=== PATIENT | female | born 1935 | race Caucasian/White ===

== ENCOUNTER 2017-09-19 09:55 | Emergency (ER) | payer MEDICARE, OTHER ==
[2017-09-19] MEDS ORDERED: Sodium Chloride 0.9% 5 ML Syringe FLUSH PRN (10:05)
[2017-09-19] MEDS ORDERED: Ondansetron 4 MG/2 ML SDV IVPUSH ONE (10:11)
[2017-09-19] MEDS ORDERED: Sodium Chloride 0.9% 1,000 ML IV ONE (10:31)
[2017-09-19 10:33] LABS: CHLORIDE,CL 101 mmol/L (98-115); SODIUM,NA 138 mmol/L (136-145)
--- NOTE | 2017-09-19 10:55 | EDM.PDOC ---
ED HPI GENERAL MEDICAL PROBLEM - General Chief Complaint: General Stated Complaint: Dizziness Time Seen by Provider: 09/19/17 10:03 Source of Information: Reports: Patient History Limitations: Reports: No Limitations - History of Present Illness INITIAL COMMENTS - FREE TEXT/NARRATIVE: Patient is an 81-year-old female who presents to the emergency department this morning with a complaint of headache and dizziness that began at 5 a.m. this morning. Patient states that she has felt nauseous but is unable to vomit. Patient states that she has been working out in the yard the last 2 days and has felt dehydrated. States that she did not consume enough liquids also. Patient denies fall, head injury, vision changes, fever, chest pain, shortness of breath, abdominal pain, bowel changes, or blood in stool Onset: Today Onset Date: 09/19/17 Onset Time: 05:00 Duration: Constant Location: Reports: Head Quality: Reports: Ache Severity: Mild Improves with: Reports: None Worsens with: Reports: Movement Context: Reports: Other (Denies fall or head injury) Associated Symptoms: Reports: No Other Symptoms - Related Data Allergies Allergy/AdvReac Type Severity Reaction Status Date / Time povidone-iodine Allergy Unknown Cannot Verified 10/26/15 18:33 [From Betadine] Remember benzalkonium chloride Allergy Cannot Verified 10/26/15 18:33 [From Zephiran] Remember diazepam [From Valium] Allergy Hallucinati Verified 10/26/15 18:33 ons soap [From Betadine] Allergy Rash Verified 10/26/15 18:33 Sulfa (Sulfonamide Allergy Hives Verified 10/26/15 18:33 Antibiotics) sulfamethoxazole Allergy Hives Verified 10/26/15 18:33 [From Bactrim] trimethoprim [From Bactrim] Allergy Hives Verified 10/26/15 18:33 tape Allergy Rash Uncoded 10/26/15 18:33 Home Meds: Home Meds LORazepam [Ativan] 1 mg PO BEDTIME PRN 03/15/13 [History] PARoxetine HCl [Paroxetine HCl] 20 mg PO DAILY 03/15/13 [History] Metoprolol Succinate [Toprol XL] 50 mg PO DAILY 03/18/13 [History] traMADol [Ultram] 50 mg PO TID PRN 03/18/13 [History] carBAMazepine [Carbamazepine ER] 400 mg PO BIDMEALS 07/06/15 [History] Iron Polysaccharides Complex [Ferrex 150] 150 mg PO BIDMEALS 09/06/15 [History] Meclizine HCl 12.5 mg PO BID PRN 09/06/15 [History] Omeprazole 40 mg PO DAILY PRN 09/07/15 [History] Atropine/Diphenoxylate [Lomotil 0.025-2.5 MG] 1 tab PO QID PRN #12 tablet [Rx] Past Medical History HEENT History: Reports: Cataract, Impaired Vision Cardiovascular History: Reports: High Cholesterol, Hypertension Respiratory History: Reports: Pneumothorax Other Respiratory History: collapsed lung in 1978 and had surgery Gastrointestinal History: Reports: Hemorrhoids, Other (See Below) Other Gastrointestinal History: heartburn Genitourinary History: Reports: Renal Calculus, Other (See Below) Other Genitourinary History: right renal cancer kidney removed Other OB/BYN History: G 5. P-5. one child was born and within a few hours with a lung problem. hysterectomy performed because the Dr rivasought that there was a problem with the ovaries. Musculoskeletal History: Reports: Arthritis Neurological History: Reports: Other (See Below) Other Neuro History: trigeminal neuralgia Psychiatric History: Reports: Anxiety, Depression Hematologic History: Reports: Anemia, Blood Transfusion(s), Iron Deficiency Oncologic (Cancer) History: Reports: Renal Dermatologic History: Reports: Other (See Below) Other Dermatologic History: dry - Infectious Disease History Infectious Disease History: Reports: Chicken Pox, Measles, Mumps, Shingles - Past Surgical History HEENT Surgical History: Reports: Cataract Surgery Cardiovascular Surgical History: Reports: Other (See Below) GI Surgical History: Reports: Appendectomy, Colonoscopy, Hernia, Inguinal, Other (See Below) Musculoskeletal Surgical History: Reports: Knee Replacement Social & Family History - Family History Cardiac: Reports: Hypertension : Reports: None ED ROS GENERAL - Review of Systems Review Of Systems: ROS reveals no pertinent complaints other than HPI. Constitutional: Reports: No Symptoms HEENT: Reports: Vertigo Respiratory: Reports: No Symptoms Cardiovascular: Reports: No Symptoms Endocrine: Reports: No Symptoms GI/Abdominal: Reports: Nausea : Reports: No Symptoms Musculoskeletal: Reports: No Symptoms Skin: Reports: No Symptoms Neurological: Reports: Dizziness, Headache Psychiatric: Reports: No Symptoms Hematologic/Lymphatic: Reports: No Symptoms Immunologic: Reports: No Symptoms ED EXAM, GENERAL - Physical Exam Exam: See Below Exam Limited By: No Limitations General Appearance: Alert, WD/WN, No Apparent Distress Eye Exam: Bilateral Eye: Normal Inspection, Nystagmus (No nystagmus) Ears: Normal External Exam, Normal Canal, Normal TMs Nose: Normal Inspection, Normal Mucosa, No Blood Throat/Mouth: Normal Inspection, Normal Oropharynx, No Airway Compromise Head: Atraumatic, Normocephalic Neck: Normal Inspection, Supple, Non-Tender Respiratory/Chest: No Respiratory Distress, Lungs Clear, Normal Breath Sounds, No Accessory Muscle Use, Chest Non-Tender Cardiovascular: Normal Peripheral Pulses, Regular Rate, Rhythm, No Murmur GI/Abdominal: Normal Bowel Sounds, Soft, Non-Tender, No Organomegaly, No Mass Back Exam: Normal Inspection. No: CVA Tenderness (L), CVA Tenderness (R) Extremities: Normal Inspection, No Pedal Edema Neurological: Alert, Oriented, CN II-XII Intact, Normal Cognition, No Motor/ Sensory Deficits Psychiatric: Normal Affect, Normal Mood Skin Exam: Warm, Dry, Intact, Normal Color, No Rash Lymphatic: No Adenopathy EKG INTERPRETATION EKG Date: 09/19/17 Time: 10:40 Rhythm: NSR Rate (Beats/Min): 63 [place]: Normal P-Wave: Present QRS: Normal ST-T: Other (Nonspecific T-wave) QT: Normal Comparison: No Change Course - Orders/Labs/Meds Orders: Active Orders 24 hr Category Date Time Status EKG Documentation Completion [RC] ASDIRECTED Care 09/19/17 10:25 Ordered Peripheral IV Care [RC] . DIRECTED Care 09/19/17 10:05 Ordered Head wo Cont [CT] Stat Exams 09/19/17 10:05 Ordered INR,PT,PROTHROMBIN TIME [COAG] Stat Lab 09/19/17 10:04 Ordered PTT,PARTIAL THROMBOPLSTIN TIME [COAG] Stat Lab 09/19/17 10:04 Ordered UA W/MICROSCOPIC [URIN] Stat Lab 09/19/17 10:04 Ordered Sodium Chloride 0.9% @ 999 MLS/HR (1000ml) Med 09/19/17 10:31 Ordered Sodium Chloride 0.9% [Normal Saline] 1,000 ml IV .BOLUS Sodium Chloride 0.9% [Syrex Flush] Med 09/19/17 10:05 Ordered 5 ml FLUSH Q8HR PRN Peripheral IV Insertion Adult [OM.PC] Routine Oth 09/19/17 10:05 Ordered EKG 12 Lead [EK] Routine Ther 09/19/17 10:25 Ordered Medication Orders Sodium Chloride (Normal Saline) 1,000 mls @ 999 mls/hr IV .BOLUS ONE Stop: 09/19/17 11:31 Sodium Chloride (Syrex Flush) 5 ml FLUSH Q8HR PRN PRN Reason: Keep Vein Open Labs: Laboratory Tests 09/19/17 09/19/17 Range/Units 10:00 10:00 WBC 7.5 (5.0-10.0) 10^3/uL RBC 4.83 (3.80-5.50) 10^6/uL Hgb 14.2 D (12.0-16.0) g/dL Hct 43.7 (37.0-47.0) % MCV 90.4 D (82.0-92.0) fL MCH 29.5 (27.0-31.0) pg MCHC 32.6 (32.0-36.0) g/dL RDW 13.7 (11.5-14.5) % Plt Count 344 H (150-300) 10^3/uL MPV 6.8 L (7.4-10.4) fL Neut % (Auto) 60.9 (50.0-70.0) % Lymph % (Auto) 27.6 (20.0-40.0) % [place] % (Auto) 7.6 (2.0-8.0) % Eos % (Auto) 3.0 (1.0-3.0) % Baso % (Auto) 0.9 (0.0-1.0) % Neut # (Auto) 4.5 (2.5-7.0) 10^3/uL Lymph # (Auto) 2.1 (1.0-4.0) 10^3/uL [place] # (Auto) 0.6 (0.1-0.8) 10^3/uL Eos # (Auto) 0.2 (0.1-0.3) 10^3/uL Baso # (Auto) 0.1 (0.0-0.1) 10^3/uL Sodium 138 (136-145) mmol/L Potassium 4.0 (3.3-5.3) mmol/L Chloride 101 (98-115) mmol/L Carbon Dioxide 26.8 (21.0-32.0) mmol/L BUN 22 (6-25) mg/dL Creatinine 1.12 (0.51-1.17) mg/dL Est Cr Clr Drug Dosing TNP Estimated GFR (MDRD) 47 mL/min Glucose 124 H (70-110) mg/dL Calcium 9.5 (8.7-10.3) mg/dL Magnesium 2.0 (1.8-2.4) mg/dL Total Bilirubin 0.3 (0.2-1.0) mg/dL AST 22 (15-37) U/L ALT 19 (12-78) U/L Alkaline Phosphatase 130 H (46-116) IU/L Troponin I < 0.04 (0.00-0.070) ng/mL Total Protein 7.5 (6.4-8.2) g/dL Albumin 3.60 (3.00-4.80) g/dL Meds: Medications Generic Name Dose Route Start Last Admin Trade Name Freq PRN Reason Stop Dose Admin Sodium Chloride 1,000 mls @ 999 mls/hr 09/19/17 10:31 Normal Saline IV 09/19/17 11:31 .BOLUS ONE Sodium Chloride 5 ml 09/19/17 10:05 Syrex Flush FLUSH Q8HR PRN Keep Vein Open Discontinued Medications Generic Name Dose Route Start Last Admin Trade Name Freq PRN Reason Stop Dose Admin Ondansetron HCl 4 mg 09/19/17 10:11 Zofran IVPUSH 09/19/17 10:12 ONETIME ONE - Re-Assessments/Exams Free Text/Narrative Re-Assessment/Exam: 09/19/17 13:13 Patient afebrile, nontoxic appearing, vital signs stable, dizziness, mostly resolved, patient has made multiple ambulation trips to bathroom without difficulty. Patient will follow-up at [facility] tomorrow or return to emergency department sooner if symptoms continue or worsen. Departure - Departure Time of Disposition: 13:14 Disposition: Home, Self-Care 01 Condition: Good Clinical Impression: Dehydration Benign positional vertigo Qualifiers: Laterality: unspecified laterality Qualified Code(s): H81.10 - Benign paroxysmal vertigo, unspecified ear - Discharge Information Instructions: Dehydration, Elderly, [id number], Benign Positional Vertigo Referrals: Vita Hobson, [facility] [Primary Care Provider] - Forms: ED Department Discharge Additional Instructions: Avoid outdoor activity, remain indoors with air conditioning, and drink plenty of liquids. Follow-up at [facility] tomorrow. Return to emergency department sooner if symptoms continue or worsen. - My Orders Last 24 Hours: My Active Orders 09/19/17 10:04 INR,PT,PROTHROMBIN TIME [COAG] Stat PTT,PARTIAL THROMBOPLSTIN TIME [COAG] Stat UA W/MICROSCOPIC [URIN] Stat 09/19/17 10:05 Peripheral IV Care [RC] . DIRECTED Head wo Cont [CT] Stat Sodium Chloride 0.9% [Syrex Flush] 5 ml FLUSH Q8HR PRN Peripheral IV Insertion Adult [OM.PC] Routine 09/19/17 10:25 EKG Documentation Completion [RC] ASDIRECTED EKG 12 Lead [EK] Routine 09/19/17 10:31 Sodium Chloride 0.9% @ 999 MLS/HR (1000ml) Sodium Chloride 0.9% [Normal Saline] 1,000 ml IV .BOLUS - Assessment/Plan Last 24 Hours: My Active Orders 09/19/17 10:04 INR,PT,PROTHROMBIN TIME [COAG] Stat PTT,PARTIAL THROMBOPLSTIN TIME [COAG] Stat UA W/MICROSCOPIC [URIN] Stat 09/19/17 10:05 Peripheral IV Care [RC] . DIRECTED Head wo Cont [CT] Stat Sodium Chloride 0.9% [Syrex Flush] 5 ml FLUSH Q8HR PRN Peripheral IV Insertion Adult [OM.PC] Routine 09/19/17 10:25 EKG Documentation Completion [RC] ASDIRECTED EKG 12 Lead [EK] Routine 09/19/17 10:31 Sodium Chloride 0.9% @ 999 MLS/HR (1000ml) Sodium Chloride 0.9% [Normal Saline] 1,000 ml IV .BOLUS Assessment:: Dizziness, headache Plan: Follow-up at [facility] tomorrow
[2017-09-19] MEDS ORDERED: diphenhydrAMINE 50 MG/ML SDV IVPUSH ONE (11:35)
[2017-09-19] MEDS ORDERED: Sodium Chloride 0.9% 500 ML IV SCH (12:00)
[2017-09-19 16:02] VITALS: BP 153/79
[2017-09-19] MEDS ORDERED: Sodium Chloride 0.9% 500 ML IV ONE (17:52)
== END 2017-09-19 13:50 | disposition home or self-care (01) ==
LOC: KA.ED 09:55
DX: H81.10 Benign paroxysmal vertigo, unspecified ear (principal); E86.0 Dehydration; E78.00 Pure hypercholesterolemia, unspecified; I10 Essential (primary) hypertension; F41.9 Anxiety disorder, unspecified; F32.9 Major depressive disorder, single episode, unspecified; Z87.442 Personal history of urinary calculi; Z88.2 Allergy status to sulfonamides; Z88.8 Allergy status to other drugs, medicaments and biological substances; Z79.899 Other long term (current) drug therapy
CPT/HCPCS: 36415; 70450; 80053; 81001; 83735; 84484; 85025; 85610; 85730; 96361; 96374; 96375; 99283; 99284; J1200; J2405; J7030; J7040

== ENCOUNTER 2018-10-24 19:04 | Emergency (ER) | payer MEDICARE, OTHER ==
[2018-10-24] MEDS ORDERED: Acetaminophen/HYDROcodone 325-5 MG Tab PO ONE ×2 (19:56→21:55)
[2018-10-24] MEDS ORDERED: Metoprolol Tartrate 50 MG Tab PO ONE (20:19)
--- NOTE | 2018-10-24 20:28 | EDM.PDOC ---
ED HPI GENERAL MEDICAL PROBLEM - General Chief Complaint: Abdominal Pain Stated Complaint: RIGHT UPPER ABDOMINAL PAIN Time Seen by Provider: 10/24/18 19:43 Source of Information: Reports: Patient History Limitations: Reports: No Limitations - History of Present Illness INITIAL COMMENTS - FREE TEXT/NARRATIVE: Patient presents with pain in right anterior lower ribcage that has been present for 1.5 years. She gets trigger point injections from Dr. Schmidt every 6 weeks that has been working very well to control it but this time it only lasted 5 weeks and he is out of town. The pain returned this afternoon. Her blood pressure is also high today in the ER and she says it is always high but less than now. She tried a Tramadol at home but helped very little. She can't take NSAIDS. Right Upper Abdominal Pain Score (Numeric/FACES): 6 - Related Data Allergies Allergy/AdvReac Type Severity Reaction Status Date / Time povidone-iodine Allergy Unknown Cannot Verified 10/24/18 19:06 [From Betadine] Remember benzalkonium chloride Allergy Cannot Verified 10/24/18 19:06 [From Zephiran] Remember diazepam [From Valium] Allergy Hallucinati Verified 10/24/18 19:06 ons gabapentin [From Neurontin] Allergy Other Verified 10/24/18 19:06 Iodinated Contrast- Oral and Allergy Rash Verified 10/24/18 19:06 IV Dye ketorolac [From Toradol] Allergy Other Verified 10/24/18 19:06 morphine Allergy Nausea Verified 10/24/18 19:06 pineapple Allergy Headache Verified 10/24/18 19:06 soap [From Betadine] Allergy Rash Verified 10/24/18 19:06 soap Allergy Rash Verified 10/24/18 19:06 Sulfa (Sulfonamide Allergy Hives Verified 10/24/18 19:06 Antibiotics) sulfamethoxazole Allergy Hives Verified 10/24/18 19:06 [From Bactrim] trimethoprim [From Bactrim] Allergy Hives Verified 10/24/18 19:06 seasonal allergies Allergy Other Uncoded 10/24/18 19:06 tape Allergy Rash Uncoded 10/24/18 19:06 Home Meds: Home Meds LORazepam [Ativan] 0.5 mg PO BEDTIME PRN 03/15/13 [History] Metoprolol Succinate [Toprol XL] 50 mg PO DAILY 03/18/13 [History] traMADol [Ultram] 50 mg PO TID PRN 03/18/13 [History] Aspirin/Acetaminophen/Caffeine [Extra Pain Relief Caplet] 0.5 tab PO Q4H PRN 10/01 [History] Fluticasone Propionate [Flonase] 1 spray NASBOTH BID 09/19/17 [History] Isosorbide Mononitrate [Isosorbide Mononitrate ER] 45 mg PO DAILY 09/19/17 [ History] Mirtazapine [Remeron] 15 mg PO BEDTIME 09/19/17 [History] Nitroglycerin [Nitrostat] 0.4 mg SL ASDIRECTED 09/19/17 [History] Rosuvastatin Calcium 20 mg PO DAILY 09/19/17 [History] amLODIPine Besylate [Amlodipine Besylate] 5 mg PO DAILY 09/19/17 [History] carBAMazepine [Carbamazepine] 400 mg PO BEDTIME 09/19/17 [History] Past Medical History HEENT History: Reports: Cataract, Impaired Vision Cardiovascular History: Reports: High Cholesterol, Hypertension Respiratory History: Reports: Pneumothorax Other Respiratory History: collapsed lung in 1978 and had surgery Gastrointestinal History: Reports: Hemorrhoids, Other (See Below) Other Gastrointestinal History: heartburn Genitourinary History: Reports: Renal Calculus, Other (See Below) Other Genitourinary History: right renal cancer kidney removed Other BOAT HAND History: G 5. P-5. one child was born and within a few hours with a lung problem. hysterectomy performed because the Dr rivasought that there was a problem with the ovaries. Musculoskeletal History: Reports: Arthritis Neurological History: Reports: Other (See Below) Other Neuro History: trigeminal neuralgia Psychiatric History: Reports: Anxiety, Depression Hematologic History: Reports: Anemia, Blood Transfusion(s), Iron Deficiency Oncologic (Cancer) History: Reports: Renal Dermatologic History: Reports: Other (See Below) Other Dermatologic History: dry - Infectious Disease History Infectious Disease History: Reports: Chicken Pox, Measles, Mumps, Shingles - Past Surgical History HEENT Surgical History: Reports: Cataract Surgery Cardiovascular Surgical History: Reports: Other (See Below) GI Surgical History: Reports: Appendectomy, Colonoscopy, Hernia, Inguinal, Other (See Below) Musculoskeletal Surgical History: Reports: Knee Replacement Social & Family History - Family History Cardiac: Reports: Hypertension : Reports: None - Caffeine Use Caffeine Use: Reports: Coffee ED ROS GENERAL - Review of Systems Review Of Systems: See Below Constitutional: Denies: Fever, Chills, Malaise, Weakness HEENT: Reports: No Symptoms Respiratory: Denies: Shortness of Breath, Cough Cardiovascular: Denies: Chest Pain, Edema, Lightheadedness, Syncope Endocrine: Reports: No Symptoms GI/Abdominal: Denies: Abdominal Pain, Constipation, Diarrhea, Nausea, Vomiting : Denies: Dysuria, Flank Pain Musculoskeletal: Reports: No Symptoms Skin: Reports: No Symptoms Neurological: Reports: No Symptoms Psychiatric: Reports: No Symptoms ED EXAM, GI/ABD - Physical Exam Exam: See Below Exam Limited By: No Limitations General Appearance: Alert, WD/WN, No Apparent Distress Eyes: Bilateral: Normal Appearance, EOMI Ears: Normal External Exam, Hearing Grossly Normal Nose: Normal Inspection, No Blood Throat/Mouth: Normal Inspection, Normal Lips, Normal Voice, No Airway Compromise Head: Atraumatic, Normocephalic Neck: Normal Inspection, Full Range of Motion Respiratory/Chest: No Respiratory Distress, Lungs Clear, Normal Breath Sounds, No Accessory Muscle Use, Other (Palpation of right isreal-medial inferior ribs is very tender.) Cardiovascular: Regular Rate, Rhythm, No Murmur GI/Abdominal Exam: Normal Bowel Sounds, Soft, Non-Tender, No Organomegaly, No Distention Back Exam: Normal Inspection, Full Range of Motion. No: CVA Tenderness (L), CVA Tenderness (R) Extremities: Normal Inspection, Normal Range of Motion Neurological: Alert, Oriented, Normal Cognition, No Motor/Sensory Deficits Psychiatric: Normal Affect, Normal Mood Skin Exam: Warm, Dry, Intact, Normal Color, No Rash Course - Vital Signs Last Recorded V/S: Last Vital Signs Temp 98.1 F 10/24/18 19:07 Pulse 76 10/24/18 20:20 Resp 16 10/24/18 19:07 BP 230/109 H 10/24/18 20:20 Pulse Ox 91 L 10/24/18 19:07 - Orders/Labs/Meds Meds: Medications Discontinued Medications Generic Name Dose Route Start Last Admin Trade Name Freq PRN Reason Stop Dose Admin Hydrocodone Bitart/Acetaminophen 1 tab 10/24/18 19:56 10/24/18 20:19 [place] 325-5 Mg PO 10/24/18 19:57 1 tab ONETIME ONE Administration Metoprolol Tartrate 50 mg 10/24/18 20:19 Lopressor PO 10/24/18 20:20 ONETIME ONE - Re-Assessments/Exams Free Text/Narrative Re-Assessment/Exam: 10/24/18 20:29 Will give hydrocodone and Metoprolol to try to get pain and BP under control. Patient is stable. 10/24/18 21:07 Patient is feeling fine now and ready to go home. The last BP check was still high so will give a little more time for the metoprolol and recheck. 10/24/18 21:43 Pressure dropped a little to 215/116 and patient says she is going home. Her blood pressure will improve there she says. Discussed findings and plan. Patient stable at discharge. Departure - Departure Time of Disposition: 21:42 Disposition: Home, Self-Care 01 Condition: Good Clinical Impression: Rib pain on right side, Hypertension - Discharge Information Additional Instructions: 1. Take your blood pressure medications as directed. 2. Follow up tomorrow in clinic for recheck of your blood pressure.
[2018-10-24 23:42] VITALS: PULSE 73
[2018-10-24 23:43] VITALS: BP 215/116
== END 2018-10-24 22:00 | disposition home or self-care (01) ==
LOC: KA.ED 19:04
DX: R07.81 Pleurodynia (principal); I10 Essential (primary) hypertension; E78.00 Pure hypercholesterolemia, unspecified; F41.9 Anxiety disorder, unspecified; F32.9 Major depressive disorder, single episode, unspecified; Z88.8 Allergy status to other drugs, medicaments and biological substances; Z91.041 Radiographic dye allergy status; Z88.5 Allergy status to narcotic agent; Z79.899 Other long term (current) drug therapy; Z79.82 Long term (current) use of aspirin; Z88.2 Allergy status to sulfonamides
CPT/HCPCS: 99283; A9270; 99284

== ENCOUNTER 2019-02-19 15:32 | Emergency (ER) | payer MEDICARE, OTHER ==
[2019-02-19] MEDS ORDERED: HYDROmorphone 1 MG/ML Syringe IVPUSH ONE (15:53)
[2019-02-19] MEDS ORDERED: Labetalol 100 MG/20 ML MDV IVPUSH ONE (15:54)
[2019-02-19] MEDS ORDERED: Ondansetron 4 MG/2 ML SDV IVPUSH ONE (16:19)
--- NOTE | 2019-02-19 16:19 | EDM.PDOC ---
ED HPI GENERAL MEDICAL PROBLEM - General Stated Complaint: Rib pain Time Seen by Provider: 02/19/19 15:39 Source of Information: Reports: Patient History Limitations: Reports: No Limitations - History of Present Illness INITIAL COMMENTS - FREE TEXT/NARRATIVE: Patient presents with pain in the medial lower left chest wall that started about noon today (4 hours ago). She has also had a bad frontal headache since last evening. She gets headaches fairly often but usually don't last this long. She says it really hurts when she presses on the left lower ribs. She also has significant cardiac history including an IN but she says that felt like heartburn and today this feels like "pain, it hurts". She denies any injuries or trauma. She says her blood pressure is always high and she doesn't know what range it usually runs in but she always takes her medications like she is supposed to. She took a nitro at home to see if it would help but it didn't. She has chronic chest wall pain and sees Dr. Schmidt for trigger point injections for this. Left Chest Pain Score (Numeric/FACES): 7 Headache Pain Score (Numeric/FACES): 9 - Related Data Allergies Allergy/AdvReac Type Severity Reaction Status Date / Time povidone-iodine Allergy Unknown Cannot Verified 02/19/19 15:38 [From Betadine] Remember benzalkonium chloride Allergy Cannot Verified 02/19/19 15:38 [From Zephiran] Remember diazepam [From Valium] Allergy Hallucinati Verified 02/19/19 15:38 ons gabapentin [From Neurontin] Allergy Other Verified 02/19/19 15:38 Iodinated Contrast Media Allergy Rash Verified 02/19/19 15:38 ketorolac [From Toradol] Allergy Other Verified 02/19/19 15:38 morphine Allergy Nausea Verified 02/19/19 15:38 pineapple Allergy Headache Verified 02/19/19 15:38 soap [From Betadine] Allergy Rash Verified 02/19/19 15:38 soap Allergy Rash Verified 02/19/19 15:38 Sulfa (Sulfonamide Allergy Hives Verified 02/19/19 15:38 Antibiotics) sulfamethoxazole Allergy Hives Verified 02/19/19 15:38 [From Bactrim] trimethoprim [From Bactrim] Allergy Hives Verified 11/06/19 15:38 seasonal allergies Allergy Other Uncoded 02/19/19 15:38 tape Allergy Rash Uncoded 02/19/19 15:38 Home Meds: Home Meds LORazepam [Ativan] 0.5 mg PO BEDTIME PRN 03/15/13 [History] Metoprolol Succinate [Toprol XL] 50 mg PO DAILY 03/18/13 [History] traMADol [Ultram] 50 mg PO TID PRN 03/18/13 [History] Aspirin/Acetaminophen/Caffeine [Extra Pain Relief Caplet] 0.5 tab PO Q4H PRN 10/01 [History] Isosorbide Mononitrate [Isosorbide Mononitrate ER] 45 mg PO DAILY 09/19/17 [ History] Nitroglycerin [Nitrostat] 0.4 mg SL ASDIRECTED 09/19/17 [History] Rosuvastatin Calcium 20 mg PO BEDTIME 09/19/17 [History] amLODIPine Besylate [Amlodipine Besylate] 5 mg PO DAILY 09/19/17 [History] carBAMazepine [Carbamazepine] 200 mg PO QID 09/19/17 [History] Acetaminophen/Caffeine [Excedrin Tension Headache Cplt] 0.5 tab PO Q4HR [History] Past Medical History HEENT History: Reports: Cataract, Impaired Vision Cardiovascular History: Reports: High Cholesterol, Hypertension Respiratory History: Reports: Pneumothorax Other Respiratory History: collapsed lung in 1978 and had surgery Gastrointestinal History: Reports: Hemorrhoids, Other (See Below) Other Gastrointestinal History: heartburn Genitourinary History: Reports: Renal Calculus, Other (See Below) Other Genitourinary History: right renal cancer kidney removed 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 one child was born and within a few hours with a lung problem. hysterectomy performed because the Dr xavier that there was a problem with the ovaries. Musculoskeletal History: Reports: Arthritis Neurological History: Reports: Other (See Below) Other Neuro History: trigeminal neuralgia Psychiatric History: Reports: Anxiety, Depression Hematologic History: Reports: Anemia, Blood Transfusion(s), Iron Deficiency Oncologic (Cancer) History: Reports: Renal Dermatologic History: Reports: Other (See Below) Other Dermatologic History: dry - Infectious Disease History Infectious Disease History: Reports: Chicken Pox, Measles, Mumps, Shingles - Past Surgical History HEENT Surgical History: Reports: Cataract Surgery Cardiovascular Surgical History: Reports: Other (See Below) GI Surgical History: Reports: Appendectomy, Colonoscopy, Hernia, Inguinal, Other (See Below) Musculoskeletal Surgical History: Reports: Knee Replacement Social & Family History - Family History Family Medical History: Noncontributory Cardiac: Reports: Hypertension : Reports: None - Caffeine Use Caffeine Use: Reports: Coffee ED ROS GENERAL - Review of Systems Review Of Systems: See Below Constitutional: Denies: Fever, Chills, Malaise, Weakness HEENT: Denies: Ear Pain, Throat Pain, Vision Change Respiratory: Denies: Shortness of Breath, Cough Cardiovascular: Reports: Chest Pain, Blood Pressure Problem. Denies: Lightheadedness, Syncope Endocrine: Reports: No Symptoms GI/Abdominal: Reports: Nausea. Denies: Abdominal Pain, Diarrhea, Vomiting : Denies: Dysuria, Flank Pain Musculoskeletal: Reports: No Symptoms Skin: Denies: Cyanosis, Jaundice, Mottled, Pallor, Diaphoresis Neurological: Reports: Headache. Denies: Confusion, Dizziness, Seizure, Syncope , Trouble Speaking, Difficulty Walking Psychiatric: Reports: Anxiety. Denies: Agitation, Confusion ED EXAM, GENERAL - Physical Exam Exam: See Below Exam Limited By: No Limitations General Appearance: Alert, WD/WN, No Apparent Distress Eye Exam: Bilateral Eye: EOMI, Normal Inspection, PERRL Ears: Normal External Exam, Hearing Grossly Normal Nose: Normal Inspection, No Blood Throat/Mouth: Normal Inspection, Normal Lips, Normal Voice, No Airway Compromise Head: Atraumatic, Normocephalic Neck: Normal Inspection, Supple, Full Range of Motion Respiratory/Chest: No Respiratory Distress, Lungs Clear, Normal Breath Sounds, No Accessory Muscle Use, Other (Palpation of left anteriomedial bottom two ribs are very tender to touch. The inferior sternum closest to this area is somewhat tender but not further up. ) Cardiovascular: Normal Peripheral Pulses, Regular Rate, Rhythm, No Edema, No Gallop, No Murmur Peripheral Pulses: 2+: Carotid (L), Carotid (R), Radial (L), Radial (R), Posterior Tibial (L), Posterior Tibial (R) GI/Abdominal: Normal Bowel Sounds, Soft, Non-Tender, No Organomegaly, No Distention, No Abnormal Bruit Back Exam: Normal Inspection, Full Range of Motion. No: CVA Tenderness (L), CVA Tenderness (R) Extremities: Normal Inspection, Normal Range of Motion, Non-Tender Neurological: Alert, Oriented, Normal Cognition, No Motor/Sensory Deficits Psychiatric: Normal Affect, Anxious Skin Exam: Warm, Dry, Intact, Normal Color, No Rash Course - Vital Signs Last Recorded V/S: Last Vital Signs Temp 97.8 F 02/19/19 17:10 Pulse 68 02/19/19 17:10 Resp 12 02/19/19 17:10 BP 152/76 H 02/19/19 17:10 Pulse Ox 93 L 02/19/19 17:10 - Orders/Labs/Meds Labs: Laboratory Tests 02/19/19 02/19/19 Range/Units 16:00 16:00 WBC 5.78 (5.00-10.00) 10^3/uL RBC 4.50 (3.80-5.50) 10^6/uL Hgb 14.1 (12.0-16.0) g/dL Hct 42.8 (37.0-47.0) % MCV 95.1 H D (82.0-92.0) fL MCH 31.3 H (27.0-31.0) pg MCHC 32.9 (32.0-36.0) g/dL RDW 13.4 (11.5-14.5) % Plt Count 238 (150-400) 10^3/uL MPV 8.9 (7.4-10.4) fL Immature Gran % (Auto) 0.2 (0.0-5.0) % Neut % (Auto) 67.8 (50.0-70.0) % Lymph % (Auto) 21.1 (20.0-40.0) % [place] % (Auto) 8.7 H (2.0-8.0) % Eos % (Auto) 1.7 (1.0-3.0) % Baso % (Auto) 0.5 (0.0-1.0) % Immature Gran # (Auto) 0.01 (0.00-0.50) 10^3/uL Neut # (Auto) 3.92 (2.50-7.00) 10^3/uL Lymph # (Auto) 1.22 (1.00-4.00) 10^3/uL [place] # (Auto) 0.50 (0.10-0.80) 10^3/uL Eos # (Auto) 0.10 (0.10-0.30) 10^3/uL Baso # (Auto) 0.03 (0.00-0.10) 10^3/uL Sodium 140 (136-145) mmol/L Potassium 4.5 (3.3-5.3) mmol/L Chloride 102 (98-115) mmol/L Carbon Dioxide 27.1 (21.0-32.0) mmol/L Anion Gap 15.4 H (5-15) mmol/L BUN 17 (6-25) mg/dL Creatinine 1.13 (0.51-1.17) mg/dL Est Cr Clr Drug Dosing 32.14 mL/min Estimated GFR (MDRD) 46 mL/min Glucose 93 (75 - 99) mg/dL Calcium 9.5 (8.7-10.3) mg/dL Troponin I 0.06 (0.00-0.070) ng/mL Meds: Medications Discontinued Medications Generic Name Dose Route Start Last Admin Trade Name Freq PRN Reason Stop Dose Admin Hydromorphone HCl 1 mg 02/19/19 15:53 02/19/19 16:10 Dilaudid IVPUSH 02/19/19 15:54 1 mg ONETIME ONE Administration Labetalol HCl 10 mg 02/19/19 15:54 02/19/19 16:21 Normodyne IVPUSH 02/19/19 15:55 1 ml ONETIME ONE Administration Protocol Ondansetron HCl 4 mg 02/19/19 16:19 Zofran IVPUSH 02/19/19 16:20 ONETIME ONE - Re-Assessments/Exams Free Text/Narrative Re-Assessment/Exam: 02/19/19 16:25 BP was 208/92 so treated with Dilaudid and give a small dose of Labetolol as well. After 20 minutes BP is down to 137/58. 02/19/19 17:08 Pain is gone and BP is stable at 134/70 now. Labs and CXR are all normal. Discussed findings. Patient can't take NSAIDS with just one kidney and moderately decreased function. She uses Tramadol when needed for pain. I recommended trying the Tramadol if the pain returns and if it isn't resolved in a couple days to follow up with her PCP. Pt agreeable to this and is discharged in stable condition. Departure - Departure Time of Disposition: 17:12 Disposition: Home, Self-Care 01 Condition: Good Clinical Impression: Anterior chest wall pain - Discharge Information Instructions: Chest Wall Pain, [id number] Referrals: Vita Hobson, AMMUNITION ASSEMBLY I LABORER [Primary Care Provider] - Additional Instructions: 1. Drink 8 cups of water daily. 2. Take the Tramadol as needed for pain control. 3. Follow up with your PCP if this doesn't resolve over next couple days.
--- NOTE | 2019-02-19 16:27 | CR ---
[id number] RAD/RAD Chest PA And Lateral EXAM: RAD Chest PA And Lateral INDICATION: CHEST DISCOMFORT. COMPARISON: October 26, 2015. DISCUSSION: Cardiomediastinal silhouette is unchanged in size and contour compared to the prior examination. COPD with bibasal scarring. Findings are similar to the prior examination. No infiltrate, effusion, pneumothorax, or edema. IMPRESSION: No acute findings or significant change from the prior examination. Feliberto Grimaldo MD 02/19/19 [id number] Thank you for allowing us to participate in the care of your patient.
[2019-02-19 16:36] LABS: ANION GAP 15.4 mmol/L (5-15)
[2019-02-19 17:12] VITALS: BP 152/76; PULSE 68
== END 2019-02-19 17:25 | disposition home or self-care (01) ==
LOC: KA.ED 15:32
DX: R07.89 Other chest pain (principal); I10 Essential (primary) hypertension; E78.00 Pure hypercholesterolemia, unspecified; F41.9 Anxiety disorder, unspecified; Z79.82 Long term (current) use of aspirin; Z79.899 Other long term (current) drug therapy; Z88.1 Allergy status to other antibiotic agents; Z88.2 Allergy status to sulfonamides; Z88.6 Allergy status to analgesic agent; Z88.8 Allergy status to other drugs, medicaments and biological substances; Z91.018 Allergy to other foods; Z91.041 Radiographic dye allergy status; Z91.048 Other nonmedicinal substance allergy status; Z91.09 Other allergy status, other than to drugs and biological substances
CPT/HCPCS: 36415; 71046; 80048; 84484; 85025; 93005; 99284; J1170; J3490

== ENCOUNTER 2019-03-29 09:55 | Emergency (ER) | payer MEDICARE, OTHER ==
[2019-03-29 10:21] VITALS: PULSE 61
[2019-03-29] MEDS ORDERED: Sodium Chloride 0.9% 10 ML Syringe FLUSH PRN (10:22)
[2019-03-29 10:40] LABS: ANION GAP 20.2 mmol/L (5-15)
--- NOTE | 2019-03-29 11:05 | EDM.PDOC ---
ED HPI GENERAL MEDICAL PROBLEM - General Chief Complaint: General Stated Complaint: dizziness Time Seen by Provider: 03/29/19 10:34 Source of Information: Reports: Patient, Family (Daughter) History Limitations: Reports: No Limitations - History of Present Illness INITIAL COMMENTS - FREE TEXT/NARRATIVE: Patient is an 83-year-old female who presents to the emergency department via EMS secondary to complaint of dizziness and weakness. Patient states that symptoms began on . She was walking around her house felt very dizzy and needed to lie down. She had multiple episodes of the same yesterday. When she woke this morning dizziness persisted, so her daughter decided to call 911. Patient denies headache, fever, blurry vision, chest pain, shortness of breath , nausea, vomiting, diarrhea, dysuria, falls or head trauma. Onset: Gradual Duration: Day(s): Location: Reports: Head Quality: Reports: Other (Dizziness) Severity: Mild Improves with: Reports: None Worsens with: Reports: Movement Context: Denies: Trauma Associated Symptoms: Reports: No Other Symptoms - Related Data Allergies Allergy/AdvReac Type Severity Reaction Status Date / Time povidone-iodine Allergy Unknown Cannot Verified 02/19/19 15:38 [From Betadine] Remember benzalkonium chloride Allergy Cannot Verified 02/19/19 15:38 [From Zephiran] Remember diazepam [From Valium] Allergy Hallucinati Verified 02/19/19 15:38 ons gabapentin [From Neurontin] Allergy Other Verified 02/19/19 15:38 Iodinated Contrast Media Allergy Rash Verified 02/19/19 15:38 ketorolac [From Toradol] Allergy Other Verified 02/19/19 15:38 morphine Allergy Nausea Verified 02/19/19 15:38 pineapple Allergy Headache Verified 02/19/19 15:38 soap [From Betadine] Allergy Rash Verified 02/19/19 15:38 soap Allergy Rash Verified 02/19/19 15:38 Sulfa (Sulfonamide Allergy Hives Verified 02/19/19 15:38 Antibiotics) sulfamethoxazole Allergy Hives Verified 02/19/19 15:38 [From Bactrim] trimethoprim [From Bactrim] Allergy Hives Verified 02/19/19 15:38 seasonal allergies Allergy Other Uncoded 02/19/19 15:38 tape Allergy Rash Uncoded 02/19/19 15:38 Home Meds: Home Meds LORazepam [Ativan] 0.5 mg PO BEDTIME PRN 03/15/13 [History] Metoprolol Succinate [Toprol XL] 50 mg PO DAILY 03/18/13 [History] traMADol [Ultram] 50 mg PO TID PRN 03/18/13 [History] Aspirin/Acetaminophen/Caffeine [Extra Pain Relief Caplet] 0.5 tab PO Q4H PRN 10/01 [History] Isosorbide Mononitrate [Isosorbide Mononitrate ER] 45 mg PO DAILY 09/19/17 [ History] Nitroglycerin [Nitrostat] 0.4 mg SL ASDIRECTED 09/19/17 [History] Rosuvastatin Calcium 20 mg PO BEDTIME 09/19/17 [History] amLODIPine Besylate [Amlodipine Besylate] 5 mg PO DAILY 09/19/17 [History] carBAMazepine [Carbamazepine] 200 mg PO QID 09/19/17 [History] Acetaminophen/Caffeine [Excedrin Tension Headache Cplt] 0.5 tab PO Q4HR [History] Past Medical History HEENT History: Reports: Cataract, Impaired Vision Cardiovascular History: Reports: High Cholesterol, Hypertension Respiratory History: Reports: Pneumothorax Other Respiratory History: collapsed lung in 1978 and had surgery Gastrointestinal History: Reports: Hemorrhoids, Other (See Below) Other Gastrointestinal History: heartburn Genitourinary History: Reports: Renal Calculus, Other (See Below) Other Genitourinary History: right renal cancer kidney removed 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 one child was born and within a few hours with a lung problem. hysterectomy performed because the Dr xavier that there was a problem with the ovaries. Musculoskeletal History: Reports: Arthritis Neurological History: Reports: Other (See Below) Other Neuro History: trigeminal neuralgia Psychiatric History: Reports: Anxiety, Depression Hematologic History: Reports: Anemia, Blood Transfusion(s), Iron Deficiency Oncologic (Cancer) History: Reports: Renal Dermatologic History: Reports: Other (See Below) Other Dermatologic History: dry - Infectious Disease History Infectious Disease History: Reports: Chicken Pox, Measles, Mumps, Shingles - Past Surgical History HEENT Surgical History: Reports: Cataract Surgery Cardiovascular Surgical History: Reports: Other (See Below) GI Surgical History: Reports: Appendectomy, Colonoscopy, Hernia, Inguinal, Other (See Below) Musculoskeletal Surgical History: Reports: Knee Replacement Social & Family History - Family History Family Medical History: Noncontributory Cardiac: Reports: Hypertension : Reports: None - Caffeine Use Caffeine Use: Reports: Coffee ED ROS GENERAL - Review of Systems Review Of Systems: Comprehensive ROS is negative, except as noted in HPI. Constitutional: Reports: No Symptoms HEENT: Reports: No Symptoms Respiratory: Reports: No Symptoms Cardiovascular: Reports: No Symptoms Endocrine: Reports: No Symptoms GI/Abdominal: Reports: No Symptoms : Reports: No Symptoms Musculoskeletal: Reports: No Symptoms Skin: Reports: No Symptoms Neurological: Reports: Dizziness, Weakness. Denies: Headache, Numbness, Paresthesia, Syncope, Tingling, Trouble Speaking, Difficulty Walking, Change in Speech, Gait Disturbance Psychiatric: Reports: No Symptoms Hematologic/Lymphatic: Reports: No Symptoms Immunologic: Reports: No Symptoms ED EXAM, GENERAL - Physical Exam Exam: See Below Exam Limited By: No Limitations General Appearance: Alert, WD/WN, No Apparent Distress Eye Exam: Bilateral Eye: Normal Inspection Ears: Normal External Exam, Normal Canal, Normal TMs Ear Exam: Bilateral Ear: TM normal Nose: Normal Inspection, Normal Mucosa, No Blood Throat/Mouth: Normal Inspection, Normal Oropharynx, No Airway Compromise Head: Atraumatic, Normocephalic Neck: Normal Inspection, Supple, Non-Tender Respiratory/Chest: No Respiratory Distress, Lungs Clear, Normal Breath Sounds, No Accessory Muscle Use Cardiovascular: Regular Rate, Rhythm, Diastolic Murmur GI/Abdominal: Normal Bowel Sounds, Soft, Non-Tender, No Organomegaly, No Distention, No Abnormal Bruit, No Mass Back Exam: Normal Inspection. No: CVA Tenderness (L), CVA Tenderness (R) Extremities: Normal Inspection, No Pedal Edema, Normal Capillary Refill Neurological: Alert, Oriented, CN II-XII Intact, Normal Cognition, No Motor/ Sensory Deficits Psychiatric: Normal Affect, Normal Mood Skin Exam: Warm, Dry, Intact, Normal Color, No Rash Lymphatic: No Adenopathy EKG INTERPRETATION EKG Date: 03/29/19 Time: 10:15 Rhythm: NSR Rate (Beats/Min): 61 [place]: Normal P-Wave: Present QRS: Normal ST-T: Other (Nonspecific) QT: Normal Comparison: No Change Course - Vital Signs Last Recorded V/S: Last Vital Signs Temp 97.5 F 03/29/19 10:18 Pulse 61 03/29/19 10:18 Resp 18 03/29/19 10:18 BP 181/65 H 03/29/19 10:18 Pulse Ox 95 03/29/19 10:18 - Orders/Labs/Meds Orders: Active Orders 24 hr Category Date Time Status EKG Documentation Completion [RC] ASDIRECTED Care 03/29/19 10:22 Active Peripheral IV Care [RC] . DIRECTED Care 03/29/19 10:22 Active Sodium Chloride 0.9% [Saline Flush] Med 03/29/19 10:22 Active 10 ml FLUSH Q8HR PRN Peripheral IV Insertion Adult [OM.PC] Routine Oth 03/29/19 10:22 Ordered EKG 12 Lead [EK] Routine Ther 03/29/19 10:22 Ordered Medication Orders Sodium Chloride (Saline Flush) 10 ml FLUSH Q8HR PRN PRN Reason: keep vein open Labs: Laboratory Tests 03/29/19 03/29/19 03/29/19 Range/Units 10:10 10:10 10:10 WBC 7.21 (5.00-10.00) 10^3/uL RBC 5.38 (3.80-5.50) 10^6/uL Hgb 16.4 H D (12.0-16.0) g/dL Hct 49.7 H (37.0-47.0) % MCV 92.4 H (82.0-92.0) fL MCH 30.5 (27.0-31.0) pg MCHC 33.0 (32.0-36.0) g/dL RDW 13.4 (11.5-14.5) % Plt Count 267 (150-400) 10^3/uL MPV 9.3 (7.4-10.4) fL Immature Gran % (Auto) 0.0 (0.0-5.0) % Neut % (Auto) 81.4 H (50.0-70.0) % Lymph % (Auto) 12.6 L (20.0-40.0) % [place] % (Auto) 5.1 (2.0-8.0) % Eos % (Auto) 0.3 L (1.0-3.0) % Baso % (Auto) 0.6 (0.0-1.0) % Immature Gran # (Auto) 0.00 (0.00-0.50) 10^3/uL Neut # (Auto) 5.87 (2.50-7.00) 10^3/uL Lymph # (Auto) 0.91 L (1.00-4.00) 10^3/uL [place] # (Auto) 0.37 (0.10-0.80) 10^3/uL Eos # (Auto) 0.02 L (0.10-0.30) 10^3/uL Baso # (Auto) 0.04 (0.00-0.10) 10^3/uL Sodium 139 (136-145) mmol/L Potassium 4.1 (3.3-5.3) mmol/L Chloride 98 (98-115) mmol/L Carbon Dioxide 24.9 (21.0-32.0) mmol/L Anion Gap 20.2 H (5-15) mmol/L BUN 19 (6-25) mg/dL Creatinine 1.03 (0.51-1.17) mg/dL Est Cr Clr Drug Dosing 34.37 mL/min Estimated GFR (MDRD) 51 mL/min Glucose 84 (75 - 99) mg/dL Calcium 10.1 (8.7-10.3) mg/dL Total Bilirubin 0.7 (0.2-1.0) mg/dL AST 24 (15-37) U/L ALT 16 (12-78) U/L Alkaline Phosphatase 127 H (46-116) IU/L Troponin I 0.04 (0.00-0.070) ng/mL Total Protein 7.9 (6.4-8.2) g/dL Albumin 3.83 (3.00-4.80) g/dL Specimen Type Urine Color (YELLOW) Urine Appearance (CLEAR) Urine pH (5.0-9.0) Ur Specific [place] (1.005-1.030) Urine Protein (NEGATIVE) mg/dL Urine Glucose (UA) (NEGATIVE) mg/dL Urine Ketones (NEGATIVE) mg/dL Urine Occult Blood (NEGATIVE) Urine Nitrite (NEGATIVE) Urine Bilirubin (NEGATIVE) Urine Urobilinogen (0.2-1.0) E.U./dL Ur Leukocyte Esterase (NEGATIVE) Urine RBC (0-5) /HPF Urine WBC (0-5) /HPF Ur Epithelial Cells /LPF Amorphous Sediment (0/HPF) /HPF Urine Bacteria (NONE TO FEW) /HPF Urine Mucus (NEGATIVE) /LPF 03/29/19 Range/Units 11:20 WBC (5.00-10.00) 10^3/uL RBC (3.80-5.50) 10^6/uL Hgb (12.0-16.0) g/dL Hct (37.0-47.0) % MCV (82.0-92.0) fL MCH (27.0-31.0) pg MCHC (32.0-36.0) g/dL RDW (11.5-14.5) % Plt Count (150-400) 10^3/uL MPV (7.4-10.4) fL Immature Gran % (Auto) (0.0-5.0) % Neut % (Auto) (50.0-70.0) % Lymph % (Auto) (20.0-40.0) % [place] % (Auto) (2.0-8.0) % Eos % (Auto) (1.0-3.0) % Baso % (Auto) (0.0-1.0) % Immature Gran # (Auto) (0.00-0.50) 10^3/uL Neut # (Auto) (2.50-7.00) 10^3/uL Lymph # (Auto) (1.00-4.00) 10^3/uL [place] # (Auto) (0.10-0.80) 10^3/uL Eos # (Auto) (0.10-0.30) 10^3/uL Baso # (Auto) (0.00-0.10) 10^3/uL Sodium (136-145) mmol/L Potassium (3.3-5.3) mmol/L Chloride (98-115) mmol/L Carbon Dioxide (21.0-32.0) mmol/L Anion Gap (5-15) mmol/L BUN (6-25) mg/dL Creatinine (0.51-1.17) mg/dL Est Cr Clr Drug Dosing mL/min Estimated GFR (MDRD) mL/min Glucose (75 - 99) mg/dL Calcium (8.7-10.3) mg/dL Total Bilirubin (0.2-1.0) mg/dL AST (15-37) U/L ALT (12-78) U/L Alkaline Phosphatase (46-116) IU/L Troponin I (0.00-0.070) ng/mL Total Protein (6.4-8.2) g/dL Albumin (3.00-4.80) g/dL Specimen Type Urinvoid Urine Color Yellow (YELLOW) Urine Appearance Clear (CLEAR) Urine pH 5.5 (5.0-9.0) Ur Specific [place] >= 1.030 (1.005-1.030) Urine Protein 100 H (NEGATIVE) mg/dL Urine Glucose (UA) Negative (NEGATIVE) mg/dL Urine Ketones >=160 H (NEGATIVE) mg/dL Urine Occult Blood Moderate H (NEGATIVE) Urine Nitrite Negative (NEGATIVE) Urine Bilirubin Moderate H (NEGATIVE) Urine Urobilinogen 0.2 (0.2-1.0) E.U./dL Ur Leukocyte Esterase Negative (NEGATIVE) Urine RBC 0-5 (0-5) /HPF Urine WBC 0-5 (0-5) /HPF Ur Epithelial Cells Few /LPF Amorphous Sediment Few (0/HPF) /HPF Urine Bacteria Few (NONE TO FEW) /HPF Urine Mucus Occasional H (NEGATIVE) /LPF Meds: Medications Generic Name Dose Route Start Last Admin Trade Name Freq PRN Reason Stop Dose Admin Sodium Chloride 10 ml 03/29/19 10:22 Saline Flush FLUSH Q8HR PRN keep vein open Discontinued Medications Generic Name Dose Route Start Last Admin Trade Name Freq PRN Reason Stop Dose Admin Diazepam 0.5 mg 03/29/19 10:35 03/29/19 11:02 Valium IVPUSH 03/29/19 10:36 Not Given ONETIME ONE Diazepam 2.5 mg 03/29/19 10:49 03/29/19 11:01 Valium IVPUSH 03/29/19 10:50 2.5 mg ONETIME ONE Administration - Radiology Interpretation Free Text/Narrative:: Chest x-ray shows no acute cardiopulmonary process - Re-Assessments/Exams Free Text/Narrative Re-Assessment/Exam: 03/29/19 12:32 Patient afebrile, vital signs stable, dizziness, resolved. Patient's daughter at bedside. Discussed in length concern for falls in the elderly. Her and patient are comfortable with discharge. Patient will follow-up at [facility]. Departure - Departure Time of Disposition: 12:33 Disposition: Home, Self-Care 01 Condition: Good Clinical Impression: Dizziness - Discharge Information Instructions: Understanding Your Risk for Falls, Dizziness, [id number] Referrals: Josy Hobson, ENTRY LEVEL MACHINE OPERATOR [Primary Care Provider] - Forms: ED Department Discharge Additional Instructions: Follow-up at [facility] in next 2-3 days. Return to emergency department sooner if symptoms continue or worsen. Sepsis Event Note - Evaluation Sepsis Screening Result: No Definite Risk - Focused Exam Vital Signs: Vital Signs Temp Pulse Resp BP Pulse Ox 03/29/19 10:18 97.5 F 61 18 181/65 H 95 Date Exam was Performed: 03/29/19 Time Exam was Performed: 12:34 - My Orders Last 24 Hours: My Active Orders 03/29/19 10:22 EKG Documentation Completion [RC] ASDIRECTED Peripheral IV Care [RC] . DIRECTED Sodium Chloride 0.9% [Saline Flush] 10 ml FLUSH Q8HR PRN Peripheral IV Insertion Adult [OM.PC] Routine EKG 12 Lead [EK] Routine - Assessment/Plan Last 24 Hours: My Active Orders 03/29/19 10:22 EKG Documentation Completion [RC] ASDIRECTED Peripheral IV Care [RC] . DIRECTED Sodium Chloride 0.9% [Saline Flush] 10 ml FLUSH Q8HR PRN Peripheral IV Insertion Adult [OM.PC] Routine EKG 12 Lead [EK] Routine Assessment:: Dizziness Plan: Follow-up at [facility]
--- NOTE | 2019-03-29 11:41 | CR ---
[id number] RAD/RAD Chest PA or AP 1V EXAM: RAD Chest PA or AP 1V INDICATION: DIZZINESS. COMPARISON: February 19, 2019. DISCUSSION: Cardiomediastinal silhouette is stable in size and contour compared to the prior examination. COPD with bibasal scarring. Findings are similar to the prior examination. No infiltrate, pneumothorax, or edema. Stable blunting of the left costophrenic angle may suggest small pleural effusion. IMPRESSION: No acute cardiopulmonary findings. Estuardo Knox DO 03/29/19 1139 Thank you for allowing us to participate in the care of your patient.
[2019-03-29 12:38] VITALS: BP 160/69
== END 2019-03-29 12:45 | disposition home or self-care (01) ==
LOC: KA.ED 09:55
DX: R42 Dizziness and giddiness (principal); I10 Essential (primary) hypertension; E78.00 Pure hypercholesterolemia, unspecified; F41.9 Anxiety disorder, unspecified; F32.9 Major depressive disorder, single episode, unspecified; Z88.8 Allergy status to other drugs, medicaments and biological substances; Z79.899 Other long term (current) drug therapy; Z88.6 Allergy status to analgesic agent; Z88.1 Allergy status to other antibiotic agents; Z91.041 Radiographic dye allergy status; Z88.5 Allergy status to narcotic agent; Z88.2 Allergy status to sulfonamides; Z91.018 Allergy to other foods; Z91.048 Other nonmedicinal substance allergy status; Z91.09 Other allergy status, other than to drugs and biological substances; Z79.82 Long term (current) use of aspirin
CPT/HCPCS: 71045; 80053; 81001; 84484; 85025; 93005; 96374; 99284-25; J3360

== ENCOUNTER 2019-03-30 02:40 | Emergency (ER) | payer MEDICARE, OTHER ==
[2019-03-30] MEDS ORDERED: Meclizine 25 MG Tab PO ONE ×2 (03:13→04:23)
[2019-03-30] MEDS ORDERED: Meclizine 25 MG Tab ONE (03:17)
--- NOTE | 2019-03-30 03:22 | EDM.PDOC ---
ED HPI GENERAL MEDICAL PROBLEM - General Chief Complaint: General Stated Complaint: dizziness Time Seen by Provider: 03/30/19 03:12 Source of Information: Reports: Patient History Limitations: Reports: No Limitations - History of Present Illness INITIAL COMMENTS - FREE TEXT/NARRATIVE: Patient is an 83-year-old female who presents to the emergency department this morning via private vehicle with her daughter and has a complaint of continued dizziness. Patient was seen here yesterday morning for the same. Symptoms began 3 days ago and did resolve in the emergency department following administration of Valium. However, patient states that she spent the whole day in bed and called her daughter this morning because she was still dizzy. Daughter decided to bring her back to the emergency department. Patient denies chest pain, shortness of breath, headache, fever, any falls, nausea or vomiting. Onset: Gradual Duration: Day(s): Location: Reports: Head Quality: Reports: Other (Dizziness) Improves with: Reports: None Worsens with: Reports: None Associated Symptoms: Reports: No Other Symptoms - Related Data Allergies Allergy/AdvReac Type Severity Reaction Status Date / Time povidone-iodine Allergy Unknown Cannot Verified 03/30/19 02:52 [From Betadine] Remember benzalkonium chloride Allergy Cannot Verified 03/30/19 02:52 [From Zephiran] Remember diazepam [From Valium] Allergy Hallucinati Verified 03/30/19 02:52 ons gabapentin [From Neurontin] Allergy Other Verified 03/30/19 02:52 Iodinated Contrast Media Allergy Rash Verified 03/30/19 02:52 ketorolac [From Toradol] Allergy Other Verified 03/30/19 02:52 morphine Allergy Nausea Verified 03/30/19 02:52 pineapple Allergy Headache Verified 03/30/19 02:52 soap [From Betadine] Allergy Rash Verified 03/30/19 02:52 soap Allergy Rash Verified 03/30/19 02:52 Sulfa (Sulfonamide Allergy Hives Verified 03/30/19 02:52 Antibiotics) sulfamethoxazole Allergy Hives Verified 03/30/19 02:52 [From Bactrim] trimethoprim [From Bactrim] Allergy Hives Verified 03/30/19 02:52 seasonal allergies Allergy Other Uncoded 03/29/19 12:54 tape Allergy Rash Uncoded 03/29/19 12:54 Home Meds: Home Meds LORazepam [Ativan] 0.5 mg PO BEDTIME PRN 03/15/13 [History] Metoprolol Succinate [Toprol XL] 50 mg PO DAILY 03/18/13 [History] traMADol [Ultram] 50 mg PO TID PRN 03/18/13 [History] Aspirin/Acetaminophen/Caffeine [Extra Pain Relief Caplet] 0.5 tab PO Q4H PRN 10/01 [History] Isosorbide Mononitrate [Isosorbide Mononitrate ER] 45 mg PO DAILY 09/19/17 [ History] Nitroglycerin [Nitrostat] 0.4 mg SL ASDIRECTED 09/19/17 [History] Rosuvastatin Calcium 20 mg PO BEDTIME 09/19/17 [History] amLODIPine Besylate [Amlodipine Besylate] 5 mg PO DAILY 09/19/17 [History] carBAMazepine [Carbamazepine] 200 mg PO QID 09/19/17 [History] Acetaminophen/Caffeine [Excedrin Tension Headache Cplt] 0.5 tab PO Q4HR [History] Past Medical History HEENT History: Reports: Cataract, Impaired Vision Cardiovascular History: Reports: High Cholesterol, Hypertension Respiratory History: Reports: Pneumothorax Other Respiratory History: collapsed lung in 1978 and had surgery Gastrointestinal History: Reports: Hemorrhoids, Other (See Below) Other Gastrointestinal History: heartburn Genitourinary History: Reports: Renal Calculus, Other (See Below) Other Genitourinary History: right renal cancer kidney removed Other DISPATCH OFFICER History: G 5. P-5. one child was born and within a few hours with a lung problem. hysterectomy performed because the Dr xavier that there was a problem with the ovaries. Musculoskeletal History: Reports: Arthritis Neurological History: Reports: Other (See Below) Other Neuro History: trigeminal neuralgia Psychiatric History: Reports: Anxiety, Depression Hematologic History: Reports: Anemia, Blood Transfusion(s), Iron Deficiency Oncologic (Cancer) History: Reports: Renal Dermatologic History: Reports: Other (See Below) Other Dermatologic History: dry - Infectious Disease History Infectious Disease History: Reports: Chicken Pox, Measles, Mumps, Shingles - Past Surgical History HEENT Surgical History: Reports: Cataract Surgery Cardiovascular Surgical History: Reports: Other (See Below) GI Surgical History: Reports: Appendectomy, Colonoscopy, Hernia, Inguinal, Other (See Below) Musculoskeletal Surgical History: Reports: Knee Replacement Social & Family History - Family History Family Medical History: Noncontributory Cardiac: Reports: Hypertension : Reports: None - Caffeine Use Caffeine Use: Reports: Coffee ED ROS GENERAL - Review of Systems Review Of Systems: Comprehensive ROS is negative, except as noted in HPI. Constitutional: Reports: No Symptoms HEENT: Reports: No Symptoms Respiratory: Reports: No Symptoms Cardiovascular: Reports: No Symptoms Endocrine: Reports: No Symptoms GI/Abdominal: Reports: No Symptoms : Reports: No Symptoms Musculoskeletal: Reports: No Symptoms Skin: Reports: No Symptoms Neurological: Reports: Dizziness. Denies: Headache Psychiatric: Reports: No Symptoms Hematologic/Lymphatic: Reports: No Symptoms Immunologic: Reports: No Symptoms ED EXAM, GENERAL - Physical Exam Exam: See Below Exam Limited By: No Limitations General Appearance: Alert, WD/WN, No Apparent Distress Eye Exam: Bilateral Eye: Normal Inspection Ears: Normal External Exam, Normal Canal, Normal TMs Nose: Normal Inspection, Normal Mucosa, No Blood Throat/Mouth: Normal Inspection, Normal Oropharynx, No Airway Compromise Head: Atraumatic, Normocephalic Neck: Normal Inspection, Supple, Non-Tender Respiratory/Chest: No Respiratory Distress, Lungs Clear, Normal Breath Sounds, No Accessory Muscle Use, Chest Non-Tender Cardiovascular: Normal Peripheral Pulses, Regular Rate, Rhythm, No Murmur GI/Abdominal: Normal Bowel Sounds, Soft, Non-Tender Back Exam: Normal Inspection. No: CVA Tenderness (L), CVA Tenderness (R) Extremities: Normal Inspection, No Pedal Edema Neurological: Alert, Oriented, CN II-XII Intact, Normal Cognition Psychiatric: Normal Affect, Normal Mood Skin Exam: Warm, Dry, Intact, Normal Color, No Rash Lymphatic: No Adenopathy Course - Vital Signs Last Recorded V/S: Last Vital Signs Temp 97.7 F 03/30/19 02:40 Pulse 68 03/30/19 02:40 Resp 18 03/30/19 02:40 BP 148/76 H 03/30/19 02:40 Pulse Ox 97 03/30/19 02:40 - Orders/Labs/Meds Orders: Active Orders 24 hr Category Date Time Status Head wo Cont [CT] Stat Exams 03/30/19 03:13 Ordered Meds: Medications Discontinued Medications Generic Name Dose Route Start Last Admin Trade Name Freq PRN Reason Stop Dose Admin Meclizine HCl 25 mg 03/30/19 03:13 Antivert PO 03/30/19 03:14 ONETIME ONE - Radiology Interpretation Free Text/Narrative:: CT head is negative for acute intracranial process - Re-Assessments/Exams Free Text/Narrative Re-Assessment/Exam: 03/30/19 04:23 Patient afebrile, vital signs stable. Dizziness somewhat controlled, but persists following meclizine. Discussed case with Chapito Rios provider. He recommended sending patient home with meclizine and follow-up at the [facility] on Sunday. Departure - Departure Time of Disposition: 04:25 Disposition: Home, Self-Care 01 Condition: Good Clinical Impression: Dizziness Benign positional vertigo Qualifiers: Laterality: unspecified laterality Qualified Code(s): H81.10 - Benign paroxysmal vertigo, unspecified ear - Discharge Information Instructions: How to Perform the Gerri Maneuver, Dizziness, [id number], Benign Positional Vertigo Referrals: Fred Arellano PA-C [Physician Snow Ranger] - Forms: ED Department Discharge Additional Instructions: Follow-up at [facility] on Sunday. Return to emergency department sooner if symptoms continue or worsen. Sepsis Event Note - Evaluation Sepsis Screening Result: No Definite Risk - Focused Exam Vital Signs: Vital Signs Temp Pulse Resp BP Pulse Ox 03/30/19 02:40 97.7 F 68 18 148/76 H 97 Date Exam was Performed: 03/30/19 Time Exam was Performed: 03:15 - My Orders Last 24 Hours: My Active Orders 03/30/19 03:13 Head wo Cont [CT] Stat - Assessment/Plan Last 24 Hours: My Active Orders 03/30/19 03:13 Head wo Cont [CT] Stat Assessment:: Dizziness Plan: Follow-up at [facility]
[2019-03-30 04:11] VITALS: PULSE 66
[2019-03-30 04:57] VITALS: BP 156/70
--- NOTE | 2019-03-30 09:33 | CT ---
[id number] CT/CT Head WO IV EXAM: CT Head WO IV CLINICAL DATA: DIZZINESS COMPARISON STUDY: 09/19/2017. FINDINGS: No intracranial hemorrhage, extra-axial fluid collection, mass, or acute ischemia. 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 Generalized parenchymal atrophy with scattered areas of nonspecific white matter disease, commonly seen as sequela of chronic microvascular ischemia. Soft tissues are unremarkable. Paranasal sinuses and mastoid air cells are clear. IMPRESSION: No acute intracranial findings. Estuardo Knox DO 03/30/19 0932 Thank you for allowing us to participate in the care of your patient.
== END 2019-03-30 04:40 | disposition home or self-care (01) ==
LOC: KA.ED 02:40
DX: H81.10 Benign paroxysmal vertigo, unspecified ear (principal); I10 Essential (primary) hypertension; E78.00 Pure hypercholesterolemia, unspecified; Z79.82 Long term (current) use of aspirin; Z79.899 Other long term (current) drug therapy; Z88.2 Allergy status to sulfonamides; Z88.6 Allergy status to analgesic agent; Z88.8 Allergy status to other drugs, medicaments and biological substances; Z91.018 Allergy to other foods; Z91.041 Radiographic dye allergy status; Z91.048 Other nonmedicinal substance allergy status; Z91.09 Other allergy status, other than to drugs and biological substances
CPT/HCPCS: 70450; 99284-25; A9270-GY

== ENCOUNTER 2019-04-02 16:00 | Inpatient (IN) | payer MEDICARE, OTHER ==
[2019-04-02] MEDS ORDERED: traMADol 50 MG Tab PO PRN (19:45)
[2019-04-02] MEDS ORDERED: Sodium Chloride 0.9% 10 ML Syringe FLUSH PRN (20:26)
[2019-04-02 20:55] LABS: ANION GAP 12.9 mmol/L (5-15)
[2019-04-02] MEDS ORDERED: CARBAMAZEPINE 200 MG PO SCH (21:00)
[2019-04-02] MEDS: CARBAMAZEPINE 200 MG PO SCH (22:55)
[2019-04-02] MEDS: LORazepam 0.5 MG Tab PO PRN (22:55)
[2019-04-03] MEDS: CARBAMAZEPINE 200 MG PO SCH ×5 (08:20→21:21)
[2019-04-03] MEDS: Metoprolol Succinate 50 MG Tab.ER PO SCH (08:21)
[2019-04-03] MEDS: amLODIPine 5 MG Tab PO SCH (08:22)
[2019-04-03] MEDS: Isosorbide Mononitrate 30 MG Tab.ER PO SCH (08:22)
[2019-04-03] MEDS ORDERED: ALPRAZolam 0.25 MG Tab PO ONE (10:18)
[2019-04-03] MEDS ORDERED: LORazepam 0.5 MG Tab PO ONE (10:47)
--- NOTE | 2019-04-03 10:51 | PCM.PN ---
- General Info Date of Service: 04/03/19 Functional Status: Reports: Pain Controlled, Tolerating Diet. Denies: Ambulating, New Symptoms - Review of Systems General: Reports: Weakness, Fatigue HEENT: Reports: Dysphasia Pulmonary: Reports: No Symptoms Cardiovascular: Reports: No Symptoms Gastrointestinal: Reports: No Symptoms Genitourinary: Reports: No Symptoms Musculoskeletal: Reports: No Symptoms Skin: Reports: No Symptoms Neurological: Reports: Pre-Existing Deficit, Difficulty Walking, Weakness, Change in Speech (Slight dysarthria), Gait Disturbance. Denies: Confusion, Dizziness, Headache, Numbness, Paresthesia, Seizure, Syncope, Tingling Psychiatric: Reports: Agitation - Patient Data Vitals - Most Recent: Last Vital Signs Temp 96.0 F 04/03/19 06:31 Pulse 57 L 04/03/19 08:21 Resp 18 04/03/19 06:31 BP 118/67 04/03/19 08:22 Pulse Ox 96 04/03/19 06:31 Weight - Most Recent: 110 lb 14.4 oz I&O - Last 24 Hours: Intake & Output 04/02/19 04/03/19 04/03/19 22:59 06:59 14:59 Intake Total 50 100 Output Total 100 Balance 50 0 Lab Results Last 24 Hours: Laboratory Results - last 24 hr 04/02/19 04/02/19 04/02/19 Range/Units 20:00 20:00 23:00 WBC 6.82 (5.00-10.00) 10^3/uL RBC 4.30 (3.80-5.50) 10^6/uL Hgb 13.2 D (12.0-16.0) g/dL Hct 40.3 (37.0-47.0) % MCV 93.7 H (82.0-92.0) fL MCH 30.7 (27.0-31.0) pg MCHC 32.8 (32.0-36.0) g/dL RDW 13.7 (11.5-14.5) % Plt Count 251 (150-400) 10^3/uL MPV 9.5 (7.4-10.4) fL Immature Gran % (Auto) 0.1 (0.0-5.0) % Neut % (Auto) 68.9 (50.0-70.0) % Lymph % (Auto) 19.5 L (20.0-40.0) % [place] % (Auto) 10.1 H (2.0-8.0) % Eos % (Auto) 1.0 (1.0-3.0) % Baso % (Auto) 0.4 (0.0-1.0) % Immature Gran # (Auto) 0.01 (0.00-0.50) 10^3/uL Neut # (Auto) 4.69 (2.50-7.00) 10^3/uL Lymph # (Auto) 1.33 (1.00-4.00) 10^3/uL [place] # (Auto) 0.69 (0.10-0.80) 10^3/uL Eos # (Auto) 0.07 L (0.10-0.30) 10^3/uL Baso # (Auto) 0.03 (0.00-0.10) 10^3/uL Sodium 141 (136-145) mmol/L Potassium 3.4 (3.3-5.3) mmol/L Chloride 103 (98-115) mmol/L Carbon Dioxide 28.5 (21.0-32.0) mmol/L Anion Gap 12.9 (5-15) mmol/L BUN 19 (6-25) mg/dL Creatinine 0.98 (0.51-1.17) mg/dL Est Cr Clr Drug Dosing 34.54 mL/min Estimated GFR (MDRD) 54 mL/min Glucose 99 (75 - 99) mg/dL Calcium 8.9 (8.7-10.3) mg/dL Total Bilirubin 0.4 (0.2-1.0) mg/dL AST 18 (15-37) U/L ALT 15 (12-78) U/L Alkaline Phosphatase 104 (46-116) IU/L Troponin I 0.04 (0.00-0.070) ng/mL Total Protein 6.5 (6.4-8.2) g/dL Albumin 2.92 L (3.00-4.80) g/dL Specimen Type Urinblad Urine Color Light yellow (YELLOW) Urine Appearance Cloudy H (CLEAR) Urine pH 5.5 (5.0-9.0) Ur Specific [place] 1.025 (1.005-1.030) Urine Protein Negative (NEGATIVE) mg/dL Urine Glucose (UA) Negative (NEGATIVE) mg/dL Urine Ketones Negative (NEGATIVE) mg/dL Urine Occult Blood Moderate H (NEGATIVE) Urine Nitrite Negative (NEGATIVE) Urine Bilirubin Negative (NEGATIVE) Urine Urobilinogen 0.2 (0.2-1.0) E.U./dL Ur Leukocyte Esterase Small H (NEGATIVE) Urine RBC 5-10 H (0-5) /HPF Urine WBC 10-20 H (0-5) /HPF Amorphous Sediment Many H (0/HPF) /HPF Urine Bacteria Few (NONE TO FEW) /HPF Med Orders - Current: Current Medications Amlodipine Besylate (Norvasc) 7.5 mg PO DAILY [facility] Last Admin: 04/03/19 08:22 Dose: 7.5 mg Isosorbide Mononitrate (Imdur) 45 mg PO DAILY [facility] Last Admin: 04/03/19 08:22 Dose: 45 mg Lorazepam (Ativan) 0.25 mg PO BEDTIME PRN PRN Reason: Other Last Admin: 04/02/19 22:55 Dose: 0.25 mg Metoprolol Succinate (Toprol Xl) 50 mg PO DAILY [facility] Last Admin: 04/03/19 08:21 Dose: 50 mg Carbamazepine Er 200 (Mg Cap - Ptom) 1 each PO QID [facility] Sodium Chloride (Saline Flush) 10 ml FLUSH Q8HR PRN PRN Reason: keep vein open Tramadol HCl (Ultram) 50 mg PO TID PRN PRN Reason: Pain Discontinued Medications Alprazolam (Xanax) 0.25 mg PO ONETIME ONE Stop: 04/03/19 10:19 Non-Formulary Medication (Carbamazepine [Carbamazepine Er]) 200 mg PO TID [facility] Carbamazepine Er 200 (MgOwn Med) 0 each PO QID [facility] Last Admin: 04/03/19 08:20 Dose: 1 each - Exam Quality Assessment: No: Supplemental Oxygen General: Alert, Oriented, Cooperative, No Acute Distress HEENT: Pupils Equal Neck: Supple, No JVD Lungs: Clear to Auscultation, Normal Respiratory Effort Cardiovascular: Regular Rate, Regular Rhythm GI/Abdominal Exam: Normal Bowel Sounds, Soft (Female) Exam: Deferred Back Exam: No: CVA Tenderness (L), CVA Tenderness (R) Extremities: Non-Tender. No: Pedal Edema Peripheral Pulses: 2+: Radial (L), Radial (R) Skin: Warm, Dry, Intact Neurological: Strength Equal Bilateral, Sensation Intact, Cranial Nerves Intact , Other (very slight pronator drift, poor gag reflex. ). No: Normal Gait, Normal Speech (Dysarthria) Psy/Mental Status: Alert, Normal Affect, Anxious Sepsis Event Note - Evaluation Sepsis Screening Result: No Definite Risk - Focused Exam Vital Signs: Vital Signs Temp Pulse Pulse Resp BP BP Pulse Ox 04/03/19 08:22 118/67 04/03/19 08:21 57 L 118/67 04/03/19 06:31 96.0 F 57 L 18 118/64 96 04/03/19 03:00 95.9 F 59 L 18 121/65 98 04/02/19 23:00 95.9 F 66 20 112/58 L 99 Date Exam was Performed: 04/05/19 Time Exam was Performed: 09:17 - Problem List Review Problem List Initiated/Reviewed/Updated: Yes - Plan Plan:: Prehospital history 83 year old female admitted yesterday by Josy Hobson NP for a ER follow-up. Felicia was seen ED on 03/29/19 and again on 03/30/19 for concerns of dizziness and weakness. CT of the head done with "no acute intracranial findings" report as noted "no intracranial hemorrhage, extra-axial fluid collection, mass, or acute ischemia. 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 Generalized parenchymal atrophy with scattered areas of nonspecific white matter disease, commonly seen as sequela of chronic microvascular ischemia. Soft tissues unremarkable". Chest x-ray done with no acute cardiopulmonary changes but noted stable COPD changes. Reported notes stable blunting of the left angle which may suggest small pleural effusion. EKG done and stable. Lab workup including CBC, CMP, troponin, urinalysis unremarkable/stable. Patient was given Valium on 03/29 with reported improved her symptoms, However on 03/30/19 patient presented to the ED again for dizziness and was given meclizine and instructed to follow- up in the clinic on Sunday. When she was evaluated yesterday by Josy Hobson WOOD BOATBUILDER APPRENTICE patient complained of being several days of weakness, unsteadiness, and difficulty with word finding. Patient reports some "forgetfullness" and had reportedly not been taking her medications for several days. Patient noted she "just didn't want to take her medications". Though daughters express concerns with confusion/forgetfullness. Daughter reports decreased appetite and oral intake. Patient is now requiring increased assistance with transferring and ambulation when previously she was independent in all ADLs. She notes generalized weakness with no focal neurological deficit though daughter notes she has had more difficulty with use of her RUE versus LUE. She denies any CONTRERAS or dizziness currently. No chest pain, palpitations or lower extremity edema. She complained of dyspnea on exertion. Denies any recent illness. Patient reports no history of TIA or stroke in the past. Though records note MRI of the head done in 2017 for TIA-like symptoms " No acute cerebral infarct. Presumed chronic aging change". Carotid ultrasound done at that time showing "No acute findings. No significant stenosis. Plaque bilaterally". Patient does state that she coughs quite a bit when drinking and eating and the family is concerned that she has a difficult time in her speech. Primary diagnosis --Generalized deconditioning --R/O CVA --Dysphagia, oral phase Chronic/stable problems CAD, no ischemic picture Anxiety, family dynamics CKD, stage III, creat 1.18 Essential hypertension Esophageal reflux Cell carcinoma with single kidney Overall plan --Patient has no qualifying inpatient medical stay, Continue OBS today with r/o CVA --MRI brain --PT/SS consultation --Long-term care in the a.m PT/OT and speech --POLST signed today --schedule swallow evaluation
--- NOTE | 2019-04-03 13:22 | MR ---
[id number] MR/MRA Brain WO IV EXAM: [place] MRA WITHOUT CONTRAST INDICATION: NEUROLOGICAL CHANGE COMPARISON: None. DISCUSSION: The [place] is normal in configuration. No vessel cut off, significant stenosis, aneurysmal dilation or other arterial abnormality identified. IMPRESSION: 1. NO LARGE VESSEL OCCLUSION. Estuardo Knox DO 04/03/19 1321 Thank you for allowing us to participate in the care of your patient.
[2019-04-03] MEDS ORDERED: Gadobenate Dimeglumine 529 MG/ML 10 ML SDV IVPUSH ONE (14:56)
--- NOTE | 2019-04-03 15:34 | MR ---
[id number] MR/MRI Brain and Stem WWO IV EXAM: MRI Brain and Stem WWO IV CLINICAL DATA: NEUROLOGICAL CHANGES COMPARISON STUDY: CT from March 30, 2019. MR a brain from today. FINDINGS: Areas of restricted diffusion in the jessica of the brainstem consistent with acute ischemia. There is associated increased T2 and decreased T2 signal without enhancement. No evidence of hemorrhage. No evidence of ischemia in the cerebellar or cerebral hemispheres. Findings are superimposed on changes of moderate chronic small vessel disease throughout the brain, including white matter gliosis in the periventricular/subcortical ventricular white matter and parenchymal atrophy. Paranasal sinuses and mastoid air cells are clear. IMPRESSION: Acute ischemia in the jessica of the brainstem, described in detail above. No evidence of hemorrhagic conversion. Results relayed to ordering provider at time of dictation. Feliberto Grimaldo MD 04/03/19 4543 Thank you for allowing us to participate in the care of your patient.
[2019-04-03] MEDS: LORazepam 0.5 MG Tab PO PRN (21:23)
[2019-04-04] MEDS: Acetaminophen 325 MG Tab PO PRN ×3 (03:08→16:20)
--- NOTE | 2019-04-04 09:09 | PCM.PN ---
- General Info Date of Service: 04/04/19 Functional Status: Reports: Pain Controlled, Tolerating Diet, Urinating. Denies : Ambulating, New Symptoms - Review of Systems HEENT: Reports: No Symptoms Pulmonary: Reports: No Symptoms Cardiovascular: Reports: No Symptoms Gastrointestinal: Reports: No Symptoms Genitourinary: Reports: No Symptoms Musculoskeletal: Reports: No Symptoms Skin: Reports: No Symptoms Neurological: Reports: Pre-Existing Deficit, Difficulty Walking, Weakness, Change in Speech (slight dysarthria), Gait Disturbance. Denies: Confusion, Dizziness, Paresthesia, Seizure, Syncope, Tingling Psychiatric: Denies: Confusion, Mood Lability, Anxiety, Agitation - Patient Data Vitals - Most Recent: Last Vital Signs Temp 96.5 F 04/04/19 06:21 Pulse 58 L 04/04/19 06:21 Resp 18 04/04/19 06:21 BP 120/71 04/04/19 06:21 Pulse Ox 96 04/04/19 06:21 Weight - Most Recent: 110 lb 14.4 oz I&O - Last 24 Hours: Intake & Output 04/03/19 04/04/19 04/04/19 22:59 06:59 14:59 Intake Total 270 50 Output Total 20 Balance 270 30 Med Orders - Current: Current Medications Acetaminophen (Tylenol) 650 mg PO Q4H PRN PRN Reason: Headache/Pain Last Admin: 04/04/19 03:08 Dose: 650 mg Amlodipine Besylate (Norvasc) 7.5 mg PO DAILY [facility] Last Admin: 04/03/19 08:22 Dose: 7.5 mg Isosorbide Mononitrate (Imdur) 45 mg PO DAILY [facility] Last Admin: 04/03/19 08:22 Dose: 45 mg Lorazepam (Ativan) 0.25 mg PO BEDTIME PRN PRN Reason: Other Last Admin: 04/03/19 21:23 Dose: 0.25 mg Metoprolol Succinate (Toprol Xl) 50 mg PO DAILY [facility] Last Admin: 04/03/19 08:21 Dose: 50 mg Carbamazepine Er 200 (Mg Cap - Ptom) 1 each PO QID [facility] Last Admin: 04/03/19 21:21 Dose: 1 each Sodium Chloride (Saline Flush) 10 ml FLUSH Q8HR PRN PRN Reason: keep vein open Tramadol HCl (Ultram) 50 mg PO TID PRN PRN Reason: Pain Discontinued Medications Alprazolam (Xanax) 0.25 mg PO ONETIME ONE Stop: 04/03/19 10:19 Last Admin: 04/03/19 12:00 Dose: Not Given Gadobenate Dimeglumine (Multihance) 10 ml IVPUSH ONETIME ONE Stop: 04/03/19 14:57 Last Admin: 04/03/19 15:24 Dose: 10 ml Lorazepam (Ativan) 0.25 mg PO ONETIME ONE Stop: 04/03/19 10:48 Last Admin: 04/03/19 12:01 Dose: Not Given Non-Formulary Medication (Carbamazepine [Carbamazepine Er]) 200 mg PO TID [facility] Carbamazepine Er 200 (MgOwn Med) 0 each PO QID [facility] Last Admin: 04/03/19 08:20 Dose: 1 each - Exam Quality Assessment: DVT Prophylaxis. No: Supplemental Oxygen General: Alert, Oriented Neck: Supple Lungs: Clear to Auscultation, Normal Respiratory Effort Cardiovascular: Regular Rate, Regular Rhythm GI/Abdominal Exam: Normal Bowel Sounds, Soft, No Distention (Female) Exam: Deferred Back Exam: No: CVA Tenderness (L), CVA Tenderness (R) Extremities: No: Pedal Edema Peripheral Pulses: 1+: Radial (L), Posterior Tibial (R), Dorsalis Pedis (L), 2+ : Carotid (L), Carotid (R), Radial (R) Skin: Warm, Dry, Intact Neurological: Normal Tone, Strength Equal Bilateral, Sensation Intact, Cranial Nerves Intact, Other (no expressive aphasia, mild dysarthria, ataxic gait with low tinetti balance scores. fair gag reflex, no appreciable pronator drifting. ) . No: Normal Gait, Normal Speech, Reflexes Equal Bilateral (left patella 1+ 2/ 2 knee replacment, ) Psy/Mental Status: Alert, Normal Affect, Normal Mood. No: Depressed Sepsis Event Note - Evaluation Sepsis Screening Result: No Definite Risk - Focused Exam Vital Signs: Vital Signs Temp Pulse Resp BP BP Pulse Ox 04/04/19 06:21 96.5 F 58 L 18 120/71 96 04/04/19 02:59 96.9 F 58 L 18 115/71 98 04/03/19 23:00 95.3 F L 67 16 114/67 96 Date Exam was Performed: 04/05/19 Time Exam was Performed: 09:15 - Problem List Review Problem List Initiated/Reviewed/Updated: Yes - My Orders Last 24 Hours: My Active Orders 04/03/19 16:00 Admission Status [Patient Status] [ADT] Routine Cardiac Monitoring [RC] 0700,1100,1500,1900,2300,0300 - Plan Plan:: Prehospital history 83 year old female admitted yesterday by Josy Hobson NP for a ER follow-up. Felicia was seen ED on 03/29/19 and again on 03/30/19 for concerns of dizziness and weakness. CT of the head done with "no acute intracranial findings" report as noted "no intracranial hemorrhage, extra-axial fluid collection, mass, or acute ischemia. 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 Generalized parenchymal atrophy with scattered areas of nonspecific white matter disease, commonly seen as sequela of chronic microvascular ischemia. Soft tissues unremarkable". Chest x-ray done with no acute cardiopulmonary changes but noted stable COPD changes. Reported notes stable blunting of the left angle which may suggest small pleural effusion. EKG done and stable. Lab workup including CBC, CMP, troponin, urinalysis unremarkable/stable. Patient was given Valium on 03/29 with reported improved her symptoms, However on 03/30/19 patient presented to the ED again for dizziness and was given meclizine and instructed to follow- up in the clinic on Sunday. When she was evaluated yesterday by Josy Hobson [employer] MECH[employer] patient complained of being several days of weakness, unsteadiness, and difficulty with word finding. Patient reports some "forgetfullness" and had reportedly not been taking her medications for several days. Patient noted she "just didn't want to take her medications". Though daughters express concerns with confusion/forgetfullness. Daughter reports decreased appetite and oral intake. Patient is now requiring increased assistance with transferring and ambulation when previously she was independent in all ADLs. She notes generalized weakness with no focal neurological deficit though daughter notes she has had more difficulty with use of her RUE versus LUE. She denies any CONTRERAS or dizziness currently. No chest pain, palpitations or lower extremity edema. She complained of dyspnea on exertion. Denies any recent illness. Patient reports no history of TIA or stroke in the past. Though records note MRI of the head done in 2017 for TIA-like symptoms " No acute cerebral infarct. Presumed chronic aging change". Carotid ultrasound done at that time showing "No acute findings. No significant stenosis. Plaque bilaterally". Patient does state that she coughs quite a bit when drinking and eating and the family is concerned that she has a difficult time in her speech. MRI Brain --Acute Ischemia jessica of brainstem --Small vessel dz, moderate --No hemorrhagic signs update: no overnight calls/concerns, Exam today: no expressive aphasia, mild dysarthria, some ataxia with low tinetti balance scores. fair gag reflex, no appreciable pronator drifting. Primary diagnosis --Acute Ischemic CVA--jessica of brainstem --Hyperlipidemia, see below --Dysphagia, oral phase, bedside swallow study today, likely need video swallow --Generalized deconditioning Chronic/stable problems --CAD, no cardiac ischemic picture--tele --Anxiety, family dynamics -CKD, stage III, creat 1.18 --Essential hypertension, avoid hypotension --Esophageal reflux Overall plan --meets inpatient criteriaa 2/2 acute ischemic CVA, with ongoing need of telemetry, neurological assessments, new medication monitoring with plans on SNF here at [facility] with eventual LTC for aggressive PT/OT/speech. --Bedside swallow study today, anticipate need for outpatient video swallow --Telemetry to monitor for irregular rhythm/afib burden --Carotid US ordered as outpatient[facility] ordered in [facility] --outpatient ECHO with bubble, ordered in [facility] --Start ASA, --reviewed recent/current LFT's, discussed statin need, patient with hx of poor tolerance after multiple trials, has agreed with restart low-dose for 2nd prevention and titrate up to high dose as tolerated. Consider PCS-k9 candidate. --DNR and POLST discussed/signed and on file. --conference call with daughters--all agree with POC.
[2019-04-04] MEDS: Metoprolol Succinate 50 MG Tab.ER PO SCH (09:38)
[2019-04-04] MEDS: Isosorbide Mononitrate 30 MG Tab.ER PO SCH (09:38)
[2019-04-04] MEDS: amLODIPine 5 MG Tab PO SCH (09:38)
[2019-04-04] MEDS: Aspirin 325 MG Tab.EC PO SCH (09:38)
[2019-04-04] MEDS: CARBAMAZEPINE 200 MG PO SCH ×4 (09:40→20:42)
[2019-04-04] MEDS ORDERED: Dexamethasone 4 MG/ML SDV ONE (10:15)
[2019-04-04] MEDS: Enoxaparin 40 MG/0.4 ML Syringe SUBCUT SCH (16:19)
[2019-04-04] MEDS ORDERED: Meclizine 25 MG Tab PO PRN (18:07)
[2019-04-04] MEDS: Ondansetron 4 MG/2 ML SDV IVPUSH PRN (20:36)
[2019-04-04] MEDS: atorvaSTATin 10 MG Tab PO SCH (20:41)
[2019-04-04] MEDS: LORazepam 0.5 MG Tab PO PRN (20:48)
[2019-04-04] MEDS ORDERED: atorvaSTATin 40 MG Tab PO SCH (21:00)
[2019-04-05] MEDS: amLODIPine 5 MG Tab PO SCH (08:26)
[2019-04-05] MEDS: Metoprolol Succinate 50 MG Tab.ER PO SCH (08:26)
[2019-04-05] MEDS: Isosorbide Mononitrate 30 MG Tab.ER PO SCH (08:27)
[2019-04-05] MEDS: CARBAMAZEPINE 200 MG PO SCH ×4 (08:28→21:30)
[2019-04-05] MEDS: Aspirin 325 MG Tab.EC PO SCH (08:28)
--- NOTE | 2019-04-05 11:38 | PCM.PN ---
- General Info Date of Service: 04/05/19 Subjective Update: Ms. García reports complaint of sensation of needing to void but being unable to urinate. Hasn't been taking much po fluid intake. Tolerating swallowing pills without difficulty noted. No other concerns noted. Denies a history of urinary retention. Nursing reports that patient needs a lot of encouragement to get out of bed. - Patient Data Vitals - Most Recent: Last Vital Signs Temp 35.8 C 04/05/19 06:48 Pulse 66 04/05/19 08:26 Resp 20 04/05/19 06:48 BP 122/76 04/05/19 08:27 Pulse Ox 95 04/05/19 06:48 Weight - Most Recent: 50.303 kg I&O - Last 24 Hours: Intake & Output 04/04/19 04/05/19 04/05/19 22:59 06:59 14:59 Intake Total 200 50 Output Total 100 750 Balance 100 -700 Med Orders - Current: Current Medications Acetaminophen (Tylenol) 650 mg PO Q4H PRN PRN Reason: Headache/Pain Last Admin: 04/04/19 16:20 Dose: 650 mg Amlodipine Besylate (Norvasc) 7.5 mg PO DAILY [facility] Last Admin: 04/05/19 08:26 Dose: 7.5 mg Aspirin (Ecotrin) 325 mg PO DAILY [facility] Last Admin: 04/05/19 08:28 Dose: 325 mg Atorvastatin Calcium (Lipitor) 10 mg PO BEDTIME [facility] Last Admin: 04/04/19 20:41 Dose: 10 mg Enoxaparin Sodium (Lovenox) 40 mg SUBCUT Q24H [facility] Last Admin: 04/04/19 16:19 Dose: 40 mg Isosorbide Mononitrate (Imdur) 45 mg PO DAILY [facility] Last Admin: 04/05/19 08:27 Dose: 45 mg Lorazepam (Ativan) 0.25 mg PO BEDTIME PRN PRN Reason: Insomnia Last Admin: 04/04/19 20:48 Dose: 0.25 mg Meclizine HCl (Antivert) 12.5 mg PO Q4H PRN PRN Reason: Dizziness Metoprolol Succinate (Toprol Xl) 50 mg PO DAILY [facility] Last Admin: 04/05/19 08:26 Dose: 50 mg Carbamazepine Er 200 (Mg Cap - Ptom) 1 each PO QID [facility] Last Admin: 12/21/19 08:28 Dose: 1 each Ondansetron HCl (Zofran) 4 mg IVPUSH Q4H PRN PRN Reason: Nausea/Vomiting Last Admin: 04/04/19 20:36 Dose: 4 mg Polyethylene Glycol (Miralax) 17 gm PO DAILY PRN PRN Reason: Constipation Sodium Chloride (Saline Flush) 10 ml FLUSH Q8HR PRN PRN Reason: keep vein open Last Admin: 04/04/19 20:39 Dose: 10 ml Tramadol HCl (Ultram) 50 mg PO TID PRN PRN Reason: Pain Discontinued Medications Alprazolam (Xanax) 0.25 mg PO ONETIME ONE Stop: 04/03/19 10:19 Last Admin: 04/03/19 12:00 Dose: Not Given Atorvastatin Calcium (Lipitor) 40 mg PO BEDTIME [facility] Gadobenate Dimeglumine (Multihance) 10 ml IVPUSH ONETIME ONE Stop: 04/03/19 14:57 Last Admin: 04/03/19 15:24 Dose: 10 ml Lorazepam (Ativan) 0.25 mg PO ONETIME ONE Stop: 04/03/19 10:48 Last Admin: 04/03/19 12:01 Dose: Not Given Non-Formulary Medication (Carbamazepine [Carbamazepine Er]) 200 mg PO TID [facility] Carbamazepine Er 200 (MgOwn Med) 0 each PO QID [facility] Last Admin: 04/03/19 08:20 Dose: 1 each - Exam Physical Findings Comments:: GENERAL: Well-appearing elderly white female lying in hospital bed in no acute distress. Daughter, Nannette, at bedside. HEENT: Normocephalic, atraumatic. Conjunctiva clear. Nares patent without discharge. Mucous membranes moist, posterior pharynx unremarkable. NECK: Supple, no masses. CV: Regular rate and rhythm, no murmurs, rubs, or gallops. 2+ radial pulses. PULMONARY: Normal effort, clear to auscultation bilaterally, no wheezes, rales, or rhonchi. ABDOMEN: Positive bowel sounds, soft, nontender, nondistended. EXTREMITIES: No edema, cyanosis, or clubbing. MUSCULOSKELETAL: Moves all extremities well. NEUROLOGICAL: CN II-XII intact aside from mild R facial droop notable with smiling. Sensation intact to light touch in distal extremities. Strength 5/5 in distal extremities. DTRs 2+/4 in upper and lower extremities. No clonus. Mild difficulty with word finding and clear speaking. DERMATOLOGIC: No rashes or suspicious lesions in exposed areas. PSYCHIATRIC: Alert, interactive, mildly cantankerous affect. Sepsis Event Note - Evaluation Sepsis Screening Result: No Definite Risk - Focused Exam Vital Signs: Vital Signs Temp Pulse Pulse Resp BP BP Pulse Ox 04/05/19 08:27 122/76 04/05/19 08:26 66 122/76 04/05/19 06:48 35.8 C 62 20 144/83 H 95 04/05/19 02:04 35.7 C 61 20 127/81 95 Date Exam was Performed: 04/07/19 Time Exam was Performed: 01:11 - Problem List Review Problem List Initiated/Reviewed/Updated: Yes - My Orders Last 24 Hours: My Active Orders 04/04/19 17:00 Enoxaparin [Lovenox] 40 mg SUBCUT Q24H 04/04/19 18:07 Meclizine [Antivert] 12.5 mg PO Q4H PRN 04/04/19 20:19 Ondansetron [Zofran] 4 mg IVPUSH Q4H PRN 04/05/19 01:30 Bladder Scan [RC] PRN 04/05/19 11:33 UA RFX SHANNON AND CULT IF INDIC [URIN] Routine 04/05/19 11:34 Polyethylene Glycol 3350 [MiraLAX] 17 gm PO DAILY PRN 04/06/19 05:11 BMP [BASIC METABOLIC PANEL,BMP] [CHEM] AM - Plan Plan:: HPI Summary: 83yoF with history notable for CAD and HTN who had been seen in the ED on and again on 03/30/19 for concerns of dizziness and weakness. Patient was given Valium on 03/29/19 with reported improved her symptoms, however on patient presented to the ED again for dizziness and was given meclizine and instructed to follow-up in the clinic on Sunday. CT of the head done on reported as "No acute intracranial findings." and "No intracranial hemorrhage , extra-axial fluid collection, mass, or acute ischemia. 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 Generalized parenchymal atrophy with scattered areas of nonspecific white matter disease, commonly seen as sequela of chronic microvascular ischemia. Soft tissues unremarkable." 03/29/19 chest x-ray done with no acute cardiopulmonary changes, but noted stable COPD changes. EKG done and stable. Lab workup including CBC, CMP, troponin, urinalysis unremarkable/ stable. She was then seen by HUGO Chaidez, at [facility] on the day of admission for ER follow-up. She complained of having several days of weakness, unsteadiness, and difficulty with word finding. Patient reports some "forgetfulness" and had reportedly not been taking her medications for several days. Patient noted she "just didn't want to take her medications". Daughters reported decreased appetite and oral intake as well as new onset of requiring increased assistance with transferring and ambulation when previously she was independent in all ADLs. Exam was notable for R facial droop, RUE pronator drift , and word finding difficulty. Notable prior records include MRI of the head done in 2017 for TIA-like symptoms showing "No acute cerebral infarct. Presumed chronic aging change." and carotid ultrasound showing "No acute findings. No significant stenosis. Plaque bilaterally." Hospital course: She was directly admitted from the clinic due to neurological deficits. She initially refused any lab or imaging work-up, but then later agreed. MRI brain showed acute ischemia of the jessica and moderate small vessel disease. Stroke cares initiated, including therapy evaluations, telemetry monitoring, and VS/ neuro monitoring. She has had no new neurologic findings and mild improvement in initial symptoms. After poor po intake, developed mild urinary retention. 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 # Dysarthria, likely secondary to CVA # Generalized deconditioning # Hyperlipidemia: Last lipid panel 01/2019 with LDL 164. Previously listed as intolerant to statins. - Continue ASA 325mg - Continue atorvastatin 10mg - Continue telemetry monitoring - Outpatient echo and carotid US as previously ordered (in [facility]) - Continue PT - Await ST and OT evaluations and management when at SNF # Decreased oral intake # Urinary retention - Obtain BMP and UA - Encourage supportive measures # Constipation: No BM in at least a few days - Start PEG daily Chronic, stable problems: # CAD s/p remote angioplasty with stenting: Denies angina. Continue isosorbide 45mg daily, metoprolol succinate 50mg daily, nitro prn. # Essential hypertension: Monitor closely. Continue amlodipine 7.5mg daily. # Hx RCC s/p R nephrectomy: Has chronic microscopic hematuria. # CKD, stage III # Trigeminal neuralgia: Stable. Continue carbamazepine. # Myofibrositis: Stable. Receives trigger point injections every 4-6 weeks. On a pain contract. Continue tramadol prn, though encourage minimizing this medication. # Chronic headaches: Hx of taking Excedrin prn, for which acetaminophen is ordered as prn while in the hospital. # Hx BPPV: Continue meclizine prn. # Anxiety: At least in part due to strained relationship with one of her daughters. Continue lorazepam prn, though encourage minimizing this medication. # Allergic rhinitis: Stable. Continue Flonase prn. Hospitalization details: # FEN: No IVF. Electrolytes normal. Heart healthy diet. # PPX: Enoxaparin 40mg daily for DVT ppx. # Code status: DNR/DNI. # Emergency contact: Daughters. Brunson updated at bedside on rounds. # Disposition: Continue inpatient status awaiting planned SNF placement [facility] on 04/[facility]19 along with referrals for PT/OT/ST.
[2019-04-05] MEDS: Ondansetron 4 MG/2 ML SDV IVPUSH PRN ×2 (12:36→18:14)
[2019-04-05] MEDS: Polyethylene Glycol 3350 Powder 17 GM Packet PO PRN (12:36)
[2019-04-05 13:54] LABS: ANION GAP 13.2 mmol/L (5-15)
[2019-04-05] MEDS: Enoxaparin 40 MG/0.4 ML Syringe SUBCUT SCH (16:33)
[2019-04-05] MEDS ORDERED: Sodium Chloride 0.9% 500 ML IV ONE (18:32)
[2019-04-05] MEDS: Sodium Chloride 0.9% 1,000 ML IV SCH ×2 (19:20→23:56)
[2019-04-05] MEDS: atorvaSTATin 10 MG Tab PO SCH (21:30)
[2019-04-06 07:50] LABS: ANION GAP 11.9 mmol/L (5-15)
[2019-04-06] MEDS: Aspirin 325 MG Tab.EC PO SCH (08:40)
[2019-04-06] MEDS: amLODIPine 5 MG Tab PO SCH (08:41)
[2019-04-06] MEDS: Isosorbide Mononitrate 30 MG Tab.ER PO SCH (08:41)
[2019-04-06] MEDS: Metoprolol Succinate 50 MG Tab.ER PO SCH (08:41)
[2019-04-06] MEDS: CARBAMAZEPINE 200 MG PO SCH ×4 (08:42→20:33)
[2019-04-06] MEDS: Sodium Chloride 0.9% 1,000 ML IV SCH (10:04)
[2019-04-06] MEDS ORDERED: Sodium Chloride 0.9% 1,000 ML IV SCH (10:30)
[2019-04-06] MEDS ORDERED: Docusate Sodium 100 MG Cap PO SCH (10:45)
[2019-04-06] MEDS: Polyethylene Glycol 3350 Powder 17 GM Packet PO PRN (11:04)
[2019-04-06] MEDS: Ondansetron 4 MG/2 ML SDV IVPUSH PRN ×2 (11:04→21:57)
[2019-04-06] MEDS: Acetaminophen 325 MG Tab PO PRN (14:45)
[2019-04-06] MEDS: Enoxaparin 40 MG/0.4 ML Syringe SUBCUT SCH (16:57)
[2019-04-06] MEDS ORDERED: Bisacodyl 10 MG Supp RECTAL ONE (18:22)
[2019-04-06] MEDS: atorvaSTATin 10 MG Tab PO SCH (20:33)
[2019-04-06] MEDS: LORazepam 0.5 MG Tab PO PRN (22:19)
--- NOTE | 2019-04-07 00:57 | PCM.PN ---
- General Info Date of Service: 04/06/19 Subjective Update: Ms. García reports resolution of urinary complaints after voiding this morning. Improved UOP with IVF; needing significant encouragement to take po fluid intake. Tolerating swallowing pills without difficulty noted. Decreased appetite. Denies pain. Passing gas, but no recent BM Nursing reports ongoing concern that patient needs a lot of encouragement to get out of bed. - Patient Data Vitals - Most Recent: Last Vital Signs Temp 35.7 C 04/06/19 22:56 Pulse 64 04/06/19 22:56 Resp 16 04/06/19 22:56 BP 162/88 H 04/06/19 22:56 Pulse Ox 93 L 04/06/19 22:56 Weight - Most Recent: 50.303 kg I&O - Last 24 Hours: Intake & Output 04/06/19 04/06/19 04/07/19 14:59 22:59 06:59 Intake Total 1536 419 Output Total 450 520 Balance 1086 -101 Lab Results Last 24 Hours: Laboratory Results - last 24 hr 04/06/19 Range/Units 07:15 Sodium 140 (136-145) mmol/L Potassium 4.2 (3.3-5.3) mmol/L Chloride 105 (98-115) mmol/L Carbon Dioxide 27.3 (21.0-32.0) mmol/L Anion Gap 11.9 (5-15) mmol/L BUN 20 (6-25) mg/dL Creatinine 1.12 (0.51-1.17) mg/dL Est Cr Clr Drug Dosing 30.22 mL/min Estimated GFR (MDRD) 46 mL/min Glucose 100 H (75 - 99) mg/dL Calcium 8.7 (8.7-10.3) mg/dL Med Orders - Current: Current Medications Acetaminophen (Tylenol) 650 mg PO Q4H PRN PRN Reason: Headache/Pain Last Admin: 04/06/19 14:45 Dose: 650 mg Amlodipine Besylate (Norvasc) 7.5 mg PO DAILY [facility] Last Admin: 04/06/19 08:41 Dose: 7.5 mg Aspirin (Ecotrin) 325 mg PO DAILY [facility] Last Admin: 04/06/19 08:40 Dose: 325 mg Atorvastatin Calcium (Lipitor) 10 mg PO BEDTIME [facility] Last Admin: 04/06/19 20:33 Dose: 10 mg Enoxaparin Sodium (Lovenox) 40 mg SUBCUT Q24H [facility] Last Admin: 04/06/19 16:57 Dose: 40 mg Sodium Chloride (Normal Saline) 1,000 mls @ 50 mls/hr IV ASDIRECTED [facility] Stop: 04/07/19 06:29 Last Admin: 04/06/19 10:20 Dose: 50 mls/hr Isosorbide Mononitrate (Imdur) 45 mg PO DAILY [facility] Last Admin: 04/06/19 08:41 Dose: 45 mg Lorazepam (Ativan) 0.25 mg PO BEDTIME PRN PRN Reason: Insomnia Last Admin: 04/06/19 22:19 Dose: 0.25 mg Meclizine HCl (Antivert) 12.5 mg PO Q4H PRN PRN Reason: Dizziness Metoprolol Succinate (Toprol Xl) 50 mg PO DAILY [facility] Last Admin: 04/06/19 08:41 Dose: 50 mg Carbamazepine Er 200 (Mg Cap - Ptom) 1 each PO QID [facility] Last Admin: 04/06/19 20:33 Dose: 1 each Ondansetron HCl (Zofran) 4 mg IVPUSH Q4H PRN PRN Reason: Nausea/Vomiting Last Admin: 04/06/19 21:57 Dose: 4 mg Polyethylene Glycol (Miralax) 17 gm PO DAILY [facility] Senna/Docusate Sodium (Senna Plus) 1 tab PO BID [facility] Last Admin: 04/06/19 20:33 Dose: 1 tab Sodium Chloride (Saline Flush) 10 ml FLUSH Q8HR PRN PRN Reason: keep vein open Last Admin: 04/04/19 20:39 Dose: 10 ml Tramadol HCl (Ultram) 50 mg PO TID PRN PRN Reason: Pain Discontinued Medications Alprazolam (Xanax) 0.25 mg PO ONETIME ONE Stop: 04/03/19 10:19 Last Admin: 04/03/19 12:00 Dose: Not Given Atorvastatin Calcium (Lipitor) 40 mg PO BEDTIME [facility] Bisacodyl (Dulcolax) 10 mg RECTAL ONETIME ONE Stop: 04/06/19 18:23 Last Admin: 04/06/19 18:53 Dose: 10 mg Docusate Sodium (Colace) 100 mg PO BID [facility] Last Admin: 04/06/19 11:03 Dose: 100 mg Gadobenate Dimeglumine (Multihance) 10 ml IVPUSH ONETIME ONE Stop: 04/03/19 14:57 Last Admin: 04/03/19 15:24 Dose: 10 ml Sodium Chloride (Normal Saline) 500 mls @ 999 mls/hr IV .BOLUS ONE Stop: 04/05/19 19:02 Last Admin: 04/05/19 18:44 Dose: 999 mls/hr Sodium Chloride (Normal Saline) 1,000 mls @ 100 mls/hr IV ASDIRECTED [facility] Last Infusion: 04/06/19 10:20 Dose: 50 mls/hr Lorazepam (Ativan) 0.25 mg PO ONETIME ONE Stop: 04/03/19 10:48 Last Admin: 04/03/19 12:01 Dose: Not Given Non-Formulary Medication (Carbamazepine [Carbamazepine Er]) 200 mg PO TID [facility] Carbamazepine Er 200 (MgOwn Med) 0 each PO QID [facility] Last Admin: 04/03/19 08:20 Dose: 1 each Polyethylene Glycol (Miralax) 17 gm PO DAILY PRN PRN Reason: Constipation Last Admin: 04/06/19 11:04 Dose: 17 gm - Exam Physical Findings Comments:: GENERAL: Well-appearing elderly white female lying in hospital bed in no acute distress. HEENT: Normocephalic, atraumatic. Conjunctiva clear. Nares patent without discharge. Mucous membranes moist, posterior pharynx unremarkable. NECK: Supple, no masses. CV: Regular rate and rhythm, no murmurs, rubs, or gallops. 2+ radial pulses. PULMONARY: Normal effort, clear to auscultation bilaterally, no wheezes, rales, or rhonchi. ABDOMEN: Positive bowel sounds, soft, nontender, nondistended. EXTREMITIES: No edema, cyanosis, or clubbing. MUSCULOSKELETAL: Moves all extremities well. NEUROLOGICAL: CN II-XII intact aside from mild R facial droop notable with smiling. Mild difficulty with word finding and clear speaking. DERMATOLOGIC: No rashes or suspicious lesions in exposed areas. PSYCHIATRIC: Alert, interactive, mildly cantankerous affect. Sepsis Event Note - Evaluation Sepsis Screening Result: No Definite Risk - Focused Exam Vital Signs: Vital Signs Temp Pulse Resp BP BP Pulse Ox 04/06/19 22:56 35.7 C 64 16 162/88 H 93 L 04/06/19 15:00 36.3 C 63 18 158/86 H 95 Date Exam was Performed: 04/07/19 Time Exam was Performed: 01:51 - Problem List Review Problem List Initiated/Reviewed/Updated: Yes - My Orders Last 24 Hours: My Active Orders 04/06/19 10:30 Sodium Chloride 0.9% [Normal Saline] 1,000 ml IV ASDIRECTED 04/06/19 21:00 Docusate Sodium/Sennosides [Senna Plus] 1 tab PO BID 04/07/19 09:00 Polyethylene Glycol 3350 [MiraLAX] 17 gm PO DAILY - Plan Plan:: HPI Summary: 83yoF with history notable for CAD and HTN who had been seen in the ED on and again on 03/30/19 for concerns of dizziness and weakness. Patient was given Valium on 03/29/19 with reported improved her symptoms, however on patient presented to the ED again for dizziness and was given meclizine and instructed to follow-up in the clinic on Sunday. CT of the head done on reported as "No acute intracranial findings." and "No intracranial hemorrhage , extra-axial fluid collection, mass, or acute ischemia. 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 Generalized parenchymal atrophy with scattered areas of nonspecific white matter disease, commonly seen as sequela of chronic microvascular ischemia. Soft tissues unremarkable." 03/29/19 chest x-ray done with no acute cardiopulmonary changes, but noted stable COPD changes. EKG done and stable. Lab workup including CBC, CMP, troponin, urinalysis unremarkable/ stable. She was then seen by HUGO Chaidez, at [facility] on the day of admission for ER follow-up. She complained of having several days of weakness, unsteadiness, and difficulty with word finding. Patient reports some "forgetfulness" and had reportedly not been taking her medications for several days. Patient noted she "just didn't want to take her medications". Daughters reported decreased appetite and oral intake as well as new onset of requiring increased assistance with transferring and ambulation when previously she was independent in all ADLs. Exam was notable for R facial droop, RUE pronator drift , and word finding difficulty. Notable prior records include MRI of the head done in 2017 for TIA-like symptoms showing "No acute cerebral infarct. Presumed chronic aging change." and carotid ultrasound showing "No acute findings. No significant stenosis. Plaque bilaterally." Hospital course: She was directly admitted from the clinic due to neurological deficits. She initially refused any lab or imaging work-up, but then later agreed. MRI brain showed acute ischemia of the jessica and moderate small vessel disease. Stroke cares initiated, including therapy evaluations, telemetry monitoring, and VS/ neuro monitoring. She has had no new neurologic findings and mild improvement in initial symptoms. After poor po intake, developed mild urinary retention which then resolved with improved intake. Constipation noted. 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 # Dysarthria, likely secondary to CVA # Generalized deconditioning # Hyperlipidemia: Last lipid panel 01/2019 with LDL 164. Previously listed as intolerant to statins. - Continue ASA 325mg - Continue atorvastatin 10mg - Discontinue telemetry monitoring given 72hrs without arrhythmias - Outpatient echo and carotid US as previously ordered (in [facility]) - Continue PT - Await ST and OT evaluations and management when at SNF # Decreased oral intake, improved # Urinary retention, resolved - Decrease IVF to 50cc/hr # Constipation: No BM in at least a few days. +BS and no abdominal pain. # Nausea, likely related to constipation - Continue PEG daily - Add docusate 100mg BID - Suppository or enema later today if no BM Chronic, stable problems: # CAD s/p remote angioplasty with stenting: Denies angina. Continue isosorbide 45mg daily, metoprolol succinate 50mg daily, nitro prn. # Essential hypertension: Monitor closely. Continue amlodipine 7.5mg daily. # Hx RCC s/p R nephrectomy: Has chronic microscopic hematuria. # CKD, stage III # Trigeminal neuralgia: Stable. Continue carbamazepine. # Myofibrositis: Stable. Receives trigger point injections every 4-6 weeks. On a pain contract. Continue tramadol prn, though encourage minimizing this medication. # Chronic headaches: Hx of taking Excedrin prn, for which acetaminophen is ordered as prn while in the hospital. # Hx BPPV: Continue meclizine prn. # Anxiety: At least in part due to strained relationship with one of her daughters. Continue lorazepam prn, though encourage minimizing this medication. # Allergic rhinitis: Stable. Continue Flonase prn. Hospitalization details: # FEN: Decrease IVF to 50cc/hr until 1L bag empty. Electrolytes normal. Heart healthy diet. # PPX: Enoxaparin 40mg daily for DVT ppx. # Code status: DNR/DNI. # Emergency contact: Jonel. Nannette updated at bedside on rounds. # Disposition: Continue inpatient status awaiting planned SNF placement at [facility] on 04/07/19 along with referrals for PT/OT/ST.
[2019-04-07] MEDS: amLODIPine 5 MG Tab PO SCH (08:26)
[2019-04-07] MEDS: Aspirin 325 MG Tab.EC PO SCH (08:26)
[2019-04-07] MEDS: Isosorbide Mononitrate 30 MG Tab.ER PO SCH (08:27)
[2019-04-07] MEDS: Metoprolol Succinate 50 MG Tab.ER PO SCH (08:28)
[2019-04-07] MEDS: CARBAMAZEPINE 200 MG PO SCH (08:28)
[2019-04-07 08:31] VITALS: BP 170/86; PULSE 61
[2019-04-07] MEDS ORDERED: Polyethylene Glycol 3350 Powder 17 GM Packet PO SCH (09:00)
[2019-04-07] MEDS: Ondansetron 4 MG/2 ML SDV IVPUSH PRN (10:13)
--- NOTE | 2019-04-07 11:45 | PCM.DCSUM1 ---
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 # Dysarthria, likely secondary to CVA # Dysphagia, likely secondary to CVA # Generalized deconditioning # Hyperlipidemia # Constipation # Urinary retention, resolved # Nausea, chronic # CAD s/p remote angioplasty with stenting # Essential hypertension # Hx RCC s/p R nephrectomy # CKD, stage III # Trigeminal neuralgia # Myofibrositis # Chronic headaches # Hx BPPV # Anxiety # Allergic rhinitis Consultations: Physical therapy Speech therapy hr shared services consultant/case management Procedures: None Hospital course: 83yoF with history notable for CAD and HTN who had been seen in the ED on and again on 03/30/19 for concerns of dizziness and weakness. Patient was given Valium on 03/29/19 with reported improved her symptoms, however on patient presented to the ED again for dizziness and was given meclizine and instructed to follow-up in the clinic on Sunday. CT of the head done on reported as "No acute intracranial findings." and "No intracranial hemorrhage , extra-axial fluid collection, mass, or acute ischemia. 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 Generalized parenchymal atrophy with scattered areas of nonspecific white matter disease, commonly seen as sequela of chronic microvascular ischemia. Soft tissues unremarkable." 03/29/19 chest x-ray done with no acute cardiopulmonary changes, but noted stable COPD changes. EKG done and stable. Lab workup including CBC, CMP, troponin, urinalysis unremarkable/ stable. She was then seen by HUGO Chaidez, at [facility] on the day of admission for ER follow-up. She complained of having several days of weakness, unsteadiness, and difficulty with word finding. Patient reports some "forgetfulness" and had reportedly not been taking her medications for several days. Patient noted she "just didn't want to take her medications". Daughters reported decreased appetite and oral intake as well as new onset of requiring increased assistance with transferring and ambulation when previously she was independent in all ADLs. Exam was notable for R facial droop, RUE pronator drift , and word finding difficulty. Notable prior records include MRI of the head done in 2017 for TIA-like symptoms showing "No acute cerebral infarct. Presumed chronic aging change." and carotid ultrasound showing "No acute findings. No significant stenosis. Plaque bilaterally." She was directly admitted from the clinic due to neurological deficits. She initially refused any lab or imaging work-up, but then later agreed. MRI brain showed acute ischemia of the jessica and moderate small vessel disease. Stroke cares initiated, including therapy evaluations, telemetry monitoring, and VS/ neuro monitoring. Physical and speech therapy recommended intensive rehabilitation. Bedside swallow study performed with plan for future video swallow study. Last lipid panel 01/2019 with LDL 164; she was previously listed as intolerant to statins, but agreed to low dose re-trial. ASA 325mg was started. Telemetry over >72hrs without arrhythmia noted. She has had no new neurologic findings and mild improvement in initial symptoms. After poor po intake, developed mild urinary retention which then resolved with improved intake. Constipation also noted, likely contributing to nausea and urinary retention, resolved with initiation of bowel regimen. Discharge and follow-up recommendations: - Discharge to [facility], with PT, OT, and ST - New medications at discharge: - ASA 325mg daily - Atorvastatin 10mg daily - PEG 1 capful daily - Senna-docusate 1 tab BID prn constipation - Discontinue Excedrin due to scheduled ASA starting - Acetaminophen prn pain - Follow-up on next [facility] rounds - Coordinate outpatient video swallow study - Ensure scheduling of outpatient echo and carotid US as previously ordered (in [facility]) Diagnosis: Stroke: Yes Modified [place] Scale: Mod.Sev.Disability ;Unable to Walk/Attend Bodily Needs W/ O Assistance Modified [place] Scale Score: 4 - Discharge Data Discharge Date: 04/07/19 Discharge Disposition: DC/Tfer to SNF 03 Condition: Fair - Referral to Home Health Primary Care Physician: Josy Hobson NP - Patient Summary/Data Consults: Consultations 04/03/19 07:00 Consult to Case Management/Parts Product Analyst [CONS] Routine PT Evaluation and Treatment [CONS] Routine - Patient Instructions Diet: Heart Healthy Diet Activity: As Tolerated Showering/Bathing: May Shower Notify Provider of: Fever, Increased Pain - Discharge Plan *PRESCRIPTION DRUG MONITORING PROGRAM REVIEWED*: Yes *COPY OF PRESCRIPTION DRUG MONITORING REPORT IN PATIENT JANNY: Yes Prescriptions/Med Rec: atorvaSTATin [Lipitor] 10 mg PO BEDTIME #30 tablet Ondansetron [Zofran ODT] 4 mg PO Q6H PRN #30 tab.dis PRN Reason: Nausea Home Medications: Home Meds LORazepam [Ativan] 0.25 mg PO BEDTIME PRN 03/15/13 [History] Metoprolol Succinate [Toprol XL] 50 mg PO DAILY 03/18/13 [History] traMADol [Ultram] 50 mg PO TID PRN 03/18/13 [History] Isosorbide Mononitrate [Isosorbide Mononitrate ER] 45 mg PO DAILY 09/19/17 [ History] amLODIPine Besylate [Amlodipine Besylate] 7.5 mg PO DAILY 09/19/17 [History] carBAMazepine [Carbamazepine ER] 200 mg PO QID 09/19/17 [History] Acyclovir [Zovirax 5% Oint] 1 applic TOP TID PRN 04/02/19 [History] Meclizine [Antivert] 12.5 mg PO Q4H PRN 04/02/19 [History] Acetaminophen [Tylenol] 650 mg PO Q4H PRN tablet 04/07/19 [Rx] Aspirin [Ecotrin EC] 325 mg PO DAILY tab.ec 04/07/19 [Rx] Docusate Sodium/Sennosides [Senna Plus] 1 tab PO BID PRN tablet 04/07/19 [Rx] Fluticasone Propionate [Flonase] 1 gm NASBOTH BID PRN #0 04/07/19 [Rx] Nitroglycerin [Nitrostat] 0.4 mg SL ASDIRECTED PRN #0 tab 04/07/19 [Rx] Ondansetron [Zofran ODT] 4 mg PO Q6H PRN #30 tab.dis 04/07/19 [Rx] Polyethylene Glycol 3350 [MiraLAX] 17 gm PO DAILY packet 04/07/19 [Rx] atorvaSTATin [Lipitor] 10 mg PO BEDTIME #30 tablet 04/07/19 [Rx] Referrals: [facility] [Outside] Vita Hobson, [employer]AT HANGER SHAPER MACHINE OPERATOR [Nurse Practitioner] - (next rounds) - Discharge Summary/Plan Comment DC Time >30 min.: Yes - General Info Subjective Update: Ms. García had a BM this morning with subsequent improvement in nausea and urinary retention. Improving po intake, but still needing significant encouragement. Tolerating swallowing pills without difficulty noted. Overall decreased appetite. Denies pain. Nursing reports ongoing concern that patient needs a lot of encouragement to get out of bed. - Patient Data Vitals - Most Recent: Last Vital Signs Temp 36.1 C 04/07/19 06:46 Pulse 61 04/07/19 08:28 Resp 20 04/07/19 06:46 BP 170/86 H 04/07/19 08:28 Pulse Ox 94 L 04/07/19 06:46 Weight - Most Recent: 50.303 kg I&O - Last 24 hours: Intake & Output 04/06/19 04/07/19 04/07/19 22:59 06:59 14:59 Intake Total 419 429 Output Total 520 635 Balance -101 -206 Med Orders - Current: Current Medications Acetaminophen (Tylenol) 650 mg PO Q4H PRN PRN Reason: Headache/Pain Last Admin: 04/06/19 14:45 Dose: 650 mg Amlodipine Besylate (Norvasc) 7.5 mg PO DAILY [facility] Last Admin: 04/07/19 08:26 Dose: 7.5 mg Aspirin (Ecotrin) 325 mg PO DAILY [facility] Last Admin: 04/07/19 08:26 Dose: 325 mg Atorvastatin Calcium (Lipitor) 10 mg PO BEDTIME [facility] Last Admin: 04/06/19 20:33 Dose: 10 mg Enoxaparin Sodium (Lovenox) 40 mg SUBCUT Q24H [facility] Last Admin: 04/06/19 16:57 Dose: 40 mg Isosorbide Mononitrate (Imdur) 45 mg PO DAILY [facility] Last Admin: 04/07/19 08:27 Dose: 45 mg Lorazepam (Ativan) 0.25 mg PO BEDTIME PRN PRN Reason: Insomnia Last Admin: 04/06/19 22:19 Dose: 0.25 mg Meclizine HCl (Antivert) 12.5 mg PO Q4H PRN PRN Reason: Dizziness Metoprolol Succinate (Toprol Xl) 50 mg PO DAILY [facility] Last Admin: 04/07/19 08:28 Dose: 50 mg Carbamazepine Er 200 (Mg Cap - Ptom) 1 each PO QID [facility] Last Admin: 04/07/19 08:28 Dose: 1 each Ondansetron HCl (Zofran) 4 mg IVPUSH Q4H PRN PRN Reason: Nausea/Vomiting Last Admin: 04/07/19 10:13 Dose: 4 mg Polyethylene Glycol (Miralax) 17 gm PO DAILY [facility] Last Admin: 04/07/19 08:25 Dose: 17 gm Senna/Docusate Sodium (Senna Plus) 1 tab PO BID [facility] Last Admin: 04/07/19 08:26 Dose: 1 tab Sodium Chloride (Saline Flush) 10 ml FLUSH Q8HR PRN PRN Reason: keep vein open Last Admin: 04/04/19 20:39 Dose: 10 ml Tramadol HCl (Ultram) 50 mg PO TID PRN PRN Reason: Pain Discontinued Medications Alprazolam (Xanax) 0.25 mg PO ONETIME ONE Stop: 04/03/19 10:19 Last Admin: 04/03/19 12:00 Dose: Not Given Atorvastatin Calcium (Lipitor) 40 mg PO BEDTIME [facility] Bisacodyl (Dulcolax) 10 mg RECTAL ONETIME ONE Stop: 04/06/19 18:23 Last Admin: 04/06/19 18:53 Dose: 10 mg Docusate Sodium (Colace) 100 mg PO BID [facility] Last Admin: 04/06/19 11:03 Dose: 100 mg Gadobenate Dimeglumine (Multihance) 10 ml IVPUSH ONETIME ONE Stop: 04/03/19 14:57 Last Admin: 04/03/19 15:24 Dose: 10 ml Sodium Chloride (Normal Saline) 500 mls @ 999 mls/hr IV .BOLUS ONE Stop: 04/05/19 19:02 Last Admin: 04/05/19 18:44 Dose: 999 mls/hr Sodium Chloride (Normal Saline) 1,000 mls @ 100 mls/hr IV ASDIRECTED [facility] Last Infusion: 04/06/19 10:20 Dose: 50 mls/hr Sodium Chloride (Normal Saline) 1,000 mls @ 50 mls/hr IV ASDIRECTED [facility] Stop: 04/07/19 06:29 Last Admin: 04/06/19 10:20 Dose: 50 mls/hr Lorazepam (Ativan) 0.25 mg PO ONETIME ONE Stop: 04/03/19 10:48 Last Admin: 04/03/19 12:01 Dose: Not Given Non-Formulary Medication (Carbamazepine [Carbamazepine Er]) 200 mg PO TID [facility] Carbamazepine Er 200 (MgOwn Med) 0 each PO QID [facility] Last Admin: 04/03/19 08:20 Dose: 1 each Polyethylene Glycol (Miralax) 17 gm PO DAILY PRN PRN Reason: Constipation Last Admin: 04/06/19 11:04 Dose: 17 gm - Exam Physical Findings Comments:: GENERAL: Well-appearing elderly white female lying in hospital bed in no acute distress. HEENT: Normocephalic, atraumatic. Conjunctiva clear. Nares patent without discharge. Mucous membranes moist, posterior pharynx unremarkable. NECK: Supple, no masses. CV: Regular rate and rhythm, no murmurs, rubs, or gallops. 2+ radial pulses. PULMONARY: Normal effort, clear to auscultation bilaterally, no wheezes, rales, or rhonchi. ABDOMEN: Positive bowel sounds, soft, nontender, nondistended. EXTREMITIES: No edema, cyanosis, or clubbing. MUSCULOSKELETAL: Moves all extremities well. NEUROLOGICAL: Persistent mild R facial droop notable with smiling. Mild difficulty with word finding and clear speaking. DERMATOLOGIC: No rashes or suspicious lesions in exposed areas. PSYCHIATRIC: Alert, interactive, flattened affect.
[2019-04-07] MEDS ORDERED: Ondansetron 4 MG Tab.DIS PO ONE (12:53)
== END 2019-04-07 13:15 | DRG 66 ==
LOC: KA.MS 16:00 → OBSVTOIN 04-03 16:00
PROVIDERS: ADMIT Nurse Practitioner Family; ATTEND Nurse Practitioner Family
DX: R53.1 Weakness (principal); I63.9 Cerebral infarction, unspecified; R47.1 Dysarthria and anarthria; Z95.5 Presence of coronary angioplasty implant and graft; R29.810 Facial weakness; R13.11 Dysphagia, oral phase; G58.8 Other specified mononeuropathies; E78.5 Hyperlipidemia, unspecified; Z90.5 Acquired absence of kidney; K59.00 Constipation, unspecified; R31.29 Other microscopic hematuria; R31.9 Hematuria, unspecified; Z66 Do not resuscitate; I12.9 Hypertensive chronic kidney disease with stage 1 through stage 4 chronic kidney disease, or unspecified chronic kidney disease; G43.109 Migraine with aura, not intractable, without status migrainosus; N18.3 Chronic kidney disease, stage 3 (moderate); I25.10 Atherosclerotic heart disease of native coronary artery without angina pectoris; G50.0 Trigeminal neuralgia; Z91.041 Radiographic dye allergy status; M79.7 Fibromyalgia; F41.9 Anxiety disorder, unspecified; H81.10 Benign paroxysmal vertigo, unspecified ear; G43.709 Chronic migraine without aura, not intractable, without status migrainosus; Z91.048 Other nonmedicinal substance allergy status; J30.9 Allergic rhinitis, unspecified; D50.0 Iron deficiency anemia secondary to blood loss (chronic); F32.9 Major depressive disorder, single episode, unspecified; K21.9 Gastro-esophageal reflux disease without esophagitis; Z85.528 Personal history of other malignant neoplasm of kidney; Z88.2 Allergy status to sulfonamides; Z88.5 Allergy status to narcotic agent; Z91.018 Allergy to other foods; Z88.8 Allergy status to other drugs, medicaments and biological substances; Z79.899 Other long term (current) drug therapy; Z79.82 Long term (current) use of aspirin; Z87.442 Personal history of urinary calculi
CPT/HCPCS: 36415; 51798; 70544; 70553; 80048; 80053; 81001; 81003; 84484; 85025; 92526-GN; 92610-GN; 97110-GP; 97162-GP; A9270-GY; A9577; G0378; J1650; J2405; J7030

== ENCOUNTER 2020-06-22 11:51 | Observation (INO) | payer MEDICARE, OTHER ==
--- NOTE | 2020-06-22 12:01 | EDM.PDOC ---
ED HPI GENERAL MEDICAL PROBLEM - General Chief Complaint: General Stated Complaint: NEAR SYNCOPE Time Seen by Provider: 06/22/20 11:51 Source of Information: Reports: Patient, EMS History Limitations: Reports: No Limitations - History of Present Illness INITIAL COMMENTS - FREE TEXT/NARRATIVE: 84 YO WF PRESENTS TO ER COMPLAINING OF NEAR SYNCOPE AFTER BUMPING HER HAND ON THE DRYER WHILE DOING HOUSEWORK. PT REPORTS SHE NOTICED A SMALL SKIN TEAR TO RIGHT HAND AND SOON AFTER BECAME LIGHTHEADED, DIAPHORETIC AND NAUSEATED. PT DENIES CHEST PAIN. PT DENIES HEADACHE/NECK PAIN. PT DENIES RECENT ILLNESSES-NO COUGH/CONGESTION, NO FEVER/CHILLS, NO VOMITING OR DIARRHEA. PT REPORTS SYMPTOMS HAVE RESOLVED AFTER EMS ARRIVED. PT CURRENTLY WITHOUT ANY COMPLAINTS. PT ALERT AND ORIENTED X 4, GCS-15, NO WEAKNESS OR NUMBNESS. Onset: Today, Sudden Location: Reports: Generalized Severity: Moderate Improves with: Reports: Rest Worsens with: Reports: None Associated Symptoms: Reports: Diaphoresis, Nausea/Vomiting. Denies: Confusion, Chest Pain, Cough, Fever/Chills, Headaches, Rash, Shortness of Breath, Syncope, Weakness - Related Data Allergies Allergy/AdvReac Type Severity Reaction Status Date / Time povidone-iodine Allergy Unknown Cannot Verified 06/22/20 12:00 [From Betadine] Remember benzalkonium chloride Allergy Cannot Verified 06/22/20 12:00 [From Zephiran] Remember diazepam [From Valium] Allergy Hallucinati Verified 06/22/20 12:00 ons gabapentin [From Neurontin] Allergy Other Verified 06/22/20 12:00 Iodinated Contrast Media Allergy Rash Verified 06/22/20 12:00 ketorolac [From Toradol] Allergy Other Verified 06/22/20 12:00 morphine Allergy Nausea Verified 06/22/20 12:00 pineapple Allergy Headache Verified 06/22/20 12:00 soap [From Betadine] Allergy Rash Verified 06/22/20 12:00 soap Allergy Rash Verified 06/22/20 12:00 [id number] Reductase Allergy Other Verified 06/22/20 12:38 Inhibitor Sulfa (Sulfonamide Allergy Hives Verified 06/22/20 12:00 Antibiotics) sulfamethoxazole Allergy Hives Verified 06/22/20 12:00 [From Bactrim] trimethoprim [From Bactrim] Allergy Hives Verified 06/22/20 12:00 seasonal allergies Allergy Other Uncoded 06/22/20 12:00 tape Allergy Rash Uncoded 06/22/20 12:00 Home Meds: Home Meds Metoprolol Succinate [Toprol XL] 50 mg PO DAILY 03/18/13 [History] Isosorbide Mononitrate [Isosorbide Mononitrate ER] 45 mg PO DAILY 09/19/17 [History] amLODIPine Besylate [Amlodipine Besylate] 7.5 mg PO DAILY 09/19/17 [History] carBAMazepine [Carbamazepine ER] 200 mg PO QID 09/19/17 [History] Acyclovir [Zovirax 5% Oint] 1 applic TOP TID PRN 04/02/19 [History] Acetaminophen [Tylenol] 650 mg PO Q4H PRN tablet 04/07/19 [Rx] Nitroglycerin [Nitrostat] 0.4 mg SL ASDIRECTED PRN #0 tab 04/07/19 [Rx] Ciclopirox [Penlac] 1 applic TP BID PRN 06/22/20 [History] Sertraline [Zoloft] 25 mg PO DAILY 06/22/20 [History] Past Medical History HEENT History: Reports: Cataract, Impaired Vision Cardiovascular History: Reports: High Cholesterol, Hypertension Respiratory History: Reports: Pneumothorax Other Respiratory History: collapsed lung in 1978 and had surgery Gastrointestinal History: Reports: Hemorrhoids, Other (See Below) Other Gastrointestinal History: heartburn Genitourinary History: Reports: Renal Calculus, Other (See Below) Other Genitourinary History: right renal cancer kidney removed 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 P-5. one child was born and within a few hours with a lung problem. hysterectomy performed because the Dr xavier that there was a problem with the ovaries. Musculoskeletal History: Reports: Arthritis Neurological History: Reports: Other (See Below) Other Neuro History: trigeminal neuralgia Psychiatric History: Reports: Anxiety, Depression Hematologic History: Reports: Anemia, Blood Transfusion(s), Iron Deficiency Oncologic (Cancer) History: Reports: Renal Dermatologic History: Reports: Other (See Below) Other Dermatologic History: dry - Infectious Disease History Infectious Disease History: Reports: Chicken Pox, Measles, Mumps, Shingles - Past Surgical History HEENT Surgical History: Reports: Cataract Surgery GI Surgical History: Reports: Appendectomy, Colonoscopy, Hernia, Inguinal Musculoskeletal Surgical History: Reports: Knee Replacement Social & Family History - Family History Family Medical History: No Pertinent Family History Cardiac: Reports: Hypertension : Reports: None Psychiatric: Reports: Anxiety - Caffeine Use Caffeine Use: Reports: Coffee ED ROS GENERAL - Review of Systems Review Of Systems: See Below Constitutional: Reports: No Symptoms HEENT: Reports: No Symptoms Respiratory: Reports: No Symptoms Cardiovascular: Reports: Lightheadedness Endocrine: Reports: No Symptoms GI/Abdominal: Reports: Nausea : Reports: No Symptoms Musculoskeletal: Reports: No Symptoms Skin: Reports: No Symptoms Neurological: Reports: Dizziness. Denies: Confusion, Headache, Numbness, Paresthesia, Syncope, Trouble Speaking, Difficulty Walking, Weakness, Change in Speech, Gait Disturbance Psychiatric: Reports: No Symptoms Hematologic/Lymphatic: Reports: No Symptoms Immunologic: Reports: No Symptoms ED EXAM, DIZZINESS - Physical Exam Exam: See Below Exam Limited By: No Limitations General Appearance: Alert, WD/WN, No Apparent Distress Eye Exam: Bilateral Eye: EOMI, PERRL Head Exam: Atraumatic, Normocephalic Neck: Normal Inspection, Supple, Non-Tender, Full Range of Motion Respiratory/Chest: No Respiratory Distress, Lungs Clear, Normal Breath Sounds, No Accessory Muscle Use, Chest Non-Tender Cardiovascular: Normal Peripheral Pulses, Regular Rate, Rhythm, No Edema, No Gallop, No JVD, No Murmur, No Rub GI/Abdominal: Normal Bowel Sounds, Soft, Non-Tender, No Organomegaly, No Distention, No Abnormal Bruit, No Mass Neurological: Alert, Normal Mood/Affect, Normal Dorsiflexion, CN II-XII Intact, Normal Plantar Flexion, Normal Gait, No Motor/Sensory Deficits, Oriented x 3 Back Exam: Normal Inspection, Full Range of Motion, NT Extremities: Normal Inspection, Normal Range of Motion, Non-Tender, No Pedal Edema, Normal Capillary Refill Psychiatric: Normal Affect, Normal Mood Skin Exam: Warm, Dry, Intact, Normal Color, No Rash #1 Interpretation EKG Date: 06/22/20 Time: 12:07 Rhythm: NSR Rate (Beats/Min): 59 [place]: Normal P-Wave: Present QRS: Normal ST-T: Normal QT: Normal Comparison: No Change (NO CHANGE FROM 03/29/2019) Course - Vital Signs Last Recorded V/S: Last Vital Signs Temp 97 F 06/22/20 11:51 Pulse 64 06/22/20 12:50 Resp 16 06/22/20 12:50 BP 143/76 H 06/22/20 12:50 Pulse Ox 95 06/22/20 12:50 - Orders/Labs/Meds Orders: Active Orders 24 hr Category Date Time Status Cardiac Monitoring [RC] . DIRECTED Care 06/22/20 11:54 Active EKG Documentation Completion [RC] ASDIRECTED Care 06/22/20 11:55 Active Chest 2V [CR] Stat Exams 06/22/20 11:54 Ordered EKG 12 Lead [EK] Stat Ther 06/22/20 11:54 Ordered Labs: Laboratory Tests 06/22/20 06/22/20 06/22/20 Range/Units 11:58 12:10 12:10 WBC 5.55 (5.00-10.00) 10^3/uL RBC 3.99 (3.80-5.50) 10^6/uL Hgb 12.4 (12.0-16.0) g/dL Hct 38.5 (37.0-47.0) % MCV 96.5 H (82.0-92.0) fL MCH 31.1 H (27.0-31.0) pg MCHC 32.2 (32.0-36.0) g/dL RDW 13.8 (11.5-14.5) % Plt Count 266 (150-400) 10^3/uL MPV 8.5 (7.4-10.4) fL Immature Gran % (Auto) 0.2 (0.0-5.0) % Neut % (Auto) 68.3 (50.0-70.0) % Lymph % (Auto) 20.9 (20.0-40.0) % [place] % (Auto) 8.1 H (2.0-8.0) % Eos % (Auto) 1.8 (1.0-3.0) % Baso % (Auto) 0.7 (0.0-1.0) % Neut # (Auto) 3.79 (2.50-7.00) 10^3/uL Lymph # (Auto) 1.16 (1.00-4.00) 10^3/uL [place] # (Auto) 0.45 (0.10-0.80) 10^3/uL Eos # (Auto) 0.10 (0.10-0.30) 10^3/uL Baso # (Auto) 0.04 (0.00-0.10) 10^3/uL Immature Gran # (Auto) 0.01 (0.00-0.50) 10^3/uL Sodium 140 (136-145) mmol/L Potassium 3.9 (3.5-5.1) mmol/L Chloride 103 (98-107) mmol/L Carbon Dioxide 27.5 (21.0-32.0) mmol/L Anion Gap 13.4 (5-15) mmol/L BUN 20 H (7-18) mg/dL Creatinine 0.94 (0.51-1.17) mg/dL Est Cr Clr Drug Dosing 35.24 mL/min Estimated GFR (MDRD) 57 mL/min Glucose 129 (70-140) mg/dL Calcium 8.7 (8.7-10.3) mg/dL Total Bilirubin 0.3 (0.2-1.0) mg/dL AST 19 (15-37) U/L ALT 19 (14-63) U/L Alkaline Phosphatase 106 (46-116) U/L Creatine Kinase 49 (26-276) U/L CK-MB (CK-2) 1.18 (0.00-3.60) ng/mL Troponin I < 0.017 (0.000-0.056) ng/mL Total Protein 6.9 (6.4-8.2) g/dL Albumin 3.26 L (3.40-5.00) g/dL Specimen Type Urinvoid Urine Color Yellow (YELLOW) Urine Appearance Slightly cloudy H (CLEAR) Urine pH 6.5 (5.0-9.0) Ur Specific [place] 1.020 (1.005-1.030) Urine Protein 30 H (NEGATIVE) mg/dL Urine Glucose (UA) Negative (NEGATIVE) mg/dL Urine Ketones Negative (NEGATIVE) mg/dL Urine Occult Blood Trace-intact H (NEGATIVE) Urine Nitrite Negative (NEGATIVE) Urine Bilirubin Negative (NEGATIVE) Urine Urobilinogen 0.2 (0.2-1.0) E.U./dL Ur Leukocyte Esterase Negative (NEGATIVE) Urine RBC 5-10 H (0-5) /HPF Urine WBC 0-5 (0-5) /HPF Ur Epithelial Cells Moderate H /LPF Urine Bacteria Few (NONE TO FEW) /HPF - Radiology Interpretation Free Text/Narrative:: CXR- NAD Departure - Departure Time of Disposition: 12:53 Disposition: Refer to Observation Condition: Good Clinical Impression: Near syncope - Discharge Information Referrals: Josy Hobson OIL DISTRIBUTOR TENDER [Primary Care Provider] - Forms: ED Department Discharge Sepsis Event Note (ED) - Focused Exam Vital Signs: Vital Signs Temp Pulse Resp BP Pulse Ox 06/22/20 12:50 64 16 143/76 H 95 06/22/20 12:30 62 16 154/80 H 95 06/22/20 12:00 64 16 160/89 H 94 L 06/22/20 11:51 97 F 63 24 H 175/82 H 94 L - My Orders Last 24 Hours: My Active Orders 06/22/20 11:54 Cardiac Monitoring [RC] . DIRECTED Chest 2V [CR] Stat EKG 12 Lead [EK] Stat 06/22/20 11:55 EKG Documentation Completion [RC] ASDIRECTED - Assessment/Plan Last 24 Hours: My Active Orders 06/22/20 11:54 Cardiac Monitoring [RC] . DIRECTED Chest 2V [CR] Stat EKG 12 Lead [EK] Stat 06/22/20 11:55 EKG Documentation Completion [RC] ASDIRECTED Assessment:: 1. NEAR SYNCOPE Plan: 1. ADMIT TO MEDICINE- OBSERVATION-ANASTASIYA BRUCE 2. TELEMETRY 3. REPEAT TROP I Q6 X 3 4. SUPPORTIVE CARE
[2020-06-22] MEDS ORDERED: Acetaminophen 500 MG Tab PO ONE (12:31)
[2020-06-22 12:44] LABS: ANION GAP 13.4 mmol/L (5-15); CHLORIDE,CL 103 mmol/L (98-107); SODIUM,NA 140 mmol/L (136-145)
--- NOTE | 2020-06-22 12:57 | CR ---
[id number] RAD/RAD Chest PA And Lateral EXAM: RAD Chest PA And Lateral INDICATION: DIZZY. COMPARISON: None. DISCUSSION: Cardiomediastinal silhouette is normal in size and contour. No infiltrate, effusion, pneumothorax, or edema. Pulmonary hyperinflation. IMPRESSION: No acute cardiopulmonary abnormality. Estuardo Knox DO 06/22/20 [id number] Thank you for allowing us to participate in the care of your patient.
[2020-06-22] MEDS ORDERED: ACYCLOVIR TOP PRN (15:18)
[2020-06-22] MEDS ORDERED: Non-Formulary Medication 1 Each (Ciclopirox [Penlac 8% Nail Lacquer] 6.6 ML Bottle) TP PRN (15:18)
[2020-06-22] MEDS ORDERED: Nitroglycerin 0.4 MG Tab.SL SL PRN (15:18)
[2020-06-22] MEDS: Sodium Chloride 0.9% 1,000 ML IV SCH (15:18)
[2020-06-22] MEDS ORDERED: amLODIPine 5 MG Tab PO SCH (16:30)
[2020-06-22] MEDS: Acetaminophen 325 MG Tab PO PRN (17:04)
[2020-06-22] MEDS ORDERED: Metoprolol Succinate 50 MG Tab.ER - PTOM PO SCH (18:00)
[2020-06-22] MEDS ORDERED: SERTRALINE 25 MG PO SCH (18:00)
[2020-06-23] MEDS: Sodium Chloride 0.9% 1,000 ML IV SCH (01:39)
[2020-06-23] MEDS: Acetaminophen 325 MG Tab PO PRN (02:39)
[2020-06-23] MEDS ORDERED: ASPIRIN 325 MG PO SCH (09:00)
[2020-06-23] MEDS ORDERED: ISOSORBIDE MONONITRATE 30 MG PO SCH (09:00)
[2020-06-23] MEDS ORDERED: Metoprolol Succinate 50 MG Tab.ER PO SCH (09:00)
[2020-06-23] MEDS ORDERED: amLODIPine 2.5 MG Tab PO SCH (09:00)
[2020-06-23] MEDS ORDERED: Metoprolol Tartrate 25 MG Tab PO ONE (09:22)
--- NOTE | 2020-06-23 10:39 | PCM.DCSUM1 ---
Discharge Summary - Hospital Course Diagnosis: Stroke: No - Discharge Data Discharge Date: 06/23/20 Discharge Disposition: Home, Self-Care 01 Condition: Good - Referral to Home Health Primary Care Physician: Josy Hobson NP - Patient Instructions Diet: Usual Diet as Tolerated Activity: As Tolerated Driving: Do Not Drive Showering/Bathing: May Shower Notify Provider of: Nausea and/or Vomiting Other/Special Instructions: For any dizziness, any signs of a repeated episode of passing out, sweating, chest pain - Discharge Plan *PRESCRIPTION DRUG MONITORING PROGRAM REVIEWED*: Not Applicable *COPY OF PRESCRIPTION DRUG MONITORING REPORT IN PATIENT JANNY: Not Applicable Prescriptions/Med Rec: Omeprazole 20 mg PO DAILY #90 capsule. Home Medications: Home Meds Metoprolol Succinate [Toprol XL] 50 mg PO DAILY 03/18/13 [History] Isosorbide Mononitrate [Isosorbide Mononitrate ER] 45 mg PO DAILY 09/19/17 [Hi story] amLODIPine Besylate [Amlodipine Besylate] 7.5 mg PO DAILY 09/19/17 [History] carBAMazepine [Carbamazepine ER] 200 mg PO QID 09/19/17 [History] Acyclovir [Zovirax 5% Oint] 1 applic TOP TID PRN 04/02/19 [History] Acetaminophen [Tylenol] 650 mg PO Q4H PRN tablet 04/07/19 [Rx] Nitroglycerin [Nitrostat] 0.4 mg SL ASDIRECTED PRN #0 tab 04/07/19 [Rx] Aspirin 325 mg PO DAILY 06/22/20 [History] Ciclopirox [Penlac 8% Nail Lacquer] 1 applic TP BID PRN 06/22/20 [History] Sertraline [Zoloft] 25 mg PO DAILY 06/22/20 [History] Omeprazole 20 mg PO DAILY #90 capsule. 06/23/20 [Rx] Referrals: Josy Hobson NP [Primary Care Provider] - (anytime next week) - Discharge Summary/Plan Comment DC Time >30 min.: Yes Discharge Summary/Plan Comment: Please use this H&P as a combined discharge summary, patient seen and discharged same day Final diagnosis Suspect Vasovagal episode, recurrent History summary Ms García a very pleasant 84-year-old female that was admitted overnight observation status after she became lightheaded, diaphoretic and nauseated immediately after her washing machine door slammed down on her right hand creating a skin tear. Patient symptoms spontaneous resolved by the time EMS arrived. She stated this is the third time this has happened most recently about 2 or 3 weeks ago. In the ED she had no chest pain, denies any recent illness, no fever. 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 Carotid ultrasound, 05/05, no significant stenosis, incidental mass posterior left CCA Echocardiogram, 05/05, 2 diastolic dysfunction, EF 65%, No aortic stenosis. ED work-up Alert and oriented, GCS-15 Troponin initial, normal Vital signs good, electrolytes normal UA, non-concerning for infection, X-ray, no acute process, Hospital course Uneventful with no overnight concerns, her right hand was cleaned and dressed with sterile dressing. All troponins normal, she did have slight hypertension urgency with systolic blood pressure greater than 200 right before her metoprolol. Morning metoprolol was given plus an extra 25 mg. Blood pressure coming down upon discharge. She has no chest pain no shortness of breath no dizziness. She has no complaints today and desires to go home. No evidence of TIA or stroke sequela Medications changes/adjustments upon discharge --Omeprazole, 20 mg p.o. daily, (newly added due to age/ASA use) Disposition/overall plan --Patient will be discharged from [facility] status home self-care with close follow-up with PCP Please use this H&P as a combined discharge summary, patient seen and discharged same day - General Info Functional Status: Reports: Pain Controlled - Review of Systems General: Reports: No Symptoms HEENT: Reports: No Symptoms Pulmonary: Reports: No Symptoms Cardiovascular: Reports: No Symptoms Gastrointestinal: Reports: No Symptoms Genitourinary: Reports: No Symptoms Musculoskeletal: Reports: No Symptoms Skin: Reports: Other (skin tear right hand) Neurological: Denies: Confusion, Dizziness, Numbness, Weakness - Patient Data Vitals - Most Recent: Last Vital Signs Temp 97.5 F 06/23/20 06:01 Pulse 65 06/23/20 09:40 Resp 16 06/23/20 06:01 BP 171/95 H 06/23/20 09:40 Pulse Ox 95 06/23/20 06:01 Weight - Most Recent: 111 lb 6.4 oz I&O - Last 24 hours: Intake & Output 06/22/20 06/23/20 06/23/20 22:59 06:59 14:59 Intake Total 820 737 Output Total 100 950 Balance 720 -213 Lab Results - Last 24 hrs: Laboratory Results - last 24 hr 06/22/20 06/22/20 06/22/20 Range/Units 11:58 12:10 12:10 WBC 5.55 (5.00-10.00) 10^3/uL RBC 3.99 (3.80-5.50) 10^6/uL Hgb 12.4 (12.0-16.0) g/dL Hct 38.5 (37.0-47.0) % MCV 96.5 H (82.0-92.0) fL MCH 31.1 H (27.0-31.0) pg MCHC 32.2 (32.0-36.0) g/dL RDW 13.8 (11.5-14.5) % Plt Count 266 (150-400) 10^3/uL MPV 8.5 (7.4-10.4) fL Immature Gran % (Auto) 0.2 (0.0-5.0) % Neut % (Auto) 68.3 (50.0-70.0) % Lymph % (Auto) 20.9 (20.0-40.0) % [place] % (Auto) 8.1 H (2.0-8.0) % Eos % (Auto) 1.8 (1.0-3.0) % Baso % (Auto) 0.7 (0.0-1.0) % Neut # (Auto) 3.79 (2.50-7.00) 10^3/uL Lymph # (Auto) 1.16 (1.00-4.00) 10^3/uL [place] # (Auto) 0.45 (0.10-0.80) 10^3/uL Eos # (Auto) 0.10 (0.10-0.30) 10^3/uL Baso # (Auto) 0.04 (0.00-0.10) 10^3/uL Immature Gran # (Auto) 0.01 (0.00-0.50) 10^3/uL Sodium 140 (136-145) mmol/L Potassium 3.9 (3.5-5.1) mmol/L Chloride 103 (98-107) mmol/L Carbon Dioxide 27.5 (21.0-32.0) mmol/L Anion Gap 13.4 (5-15) mmol/L BUN 20 H (7-18) mg/dL Creatinine 0.94 (0.51-1.17) mg/dL Est Cr Clr Drug Dosing 35.24 mL/min Estimated GFR (MDRD) 57 mL/min Glucose 129 (70-140) mg/dL Calcium 8.7 (8.7-10.3) mg/dL Total Bilirubin 0.3 (0.2-1.0) mg/dL AST 19 (15-37) U/L ALT 19 (14-63) U/L Alkaline Phosphatase 106 (46-116) U/L Creatine Kinase 49 (26-276) U/L CK-MB (CK-2) 1.18 (0.00-3.60) ng/mL Troponin I < 0.017 (0.000-0.056) ng/mL Total Protein 6.9 (6.4-8.2) g/dL Albumin 3.26 L (3.40-5.00) g/dL Specimen Type Urinvoid Urine Color Yellow (YELLOW) Urine Appearance Slightly cloudy H (CLEAR) Urine pH 6.5 (5.0-9.0) Ur Specific [place] 1.020 (1.005-1.030) Urine Protein 30 H (NEGATIVE) mg/dL Urine Glucose (UA) Negative (NEGATIVE) mg/dL Urine Ketones Negative (NEGATIVE) mg/dL Urine Occult Blood Trace-intact H (NEGATIVE) Urine Nitrite Negative (NEGATIVE) Urine Bilirubin Negative (NEGATIVE) Urine Urobilinogen 0.2 (0.2-1.0) E.U./dL Ur Leukocyte Esterase Negative (NEGATIVE) Urine RBC 5-10 H (0-5) /HPF Urine WBC 0-5 (0-5) /HPF Ur Epithelial Cells Moderate H /LPF Urine Bacteria Few (NONE TO FEW) /HPF SARS CoV-2 RNA Rapid EDIS (NEGATIVE) 06/22/20 06/22/20 06/23/20 Range/Units 12:54 18:00 03:30 WBC (5.00-10.00) 10^3/uL RBC (3.80-5.50) 10^6/uL Hgb (12.0-16.0) g/dL Hct (37.0-47.0) % MCV (82.0-92.0) fL MCH (27.0-31.0) pg MCHC (32.0-36.0) g/dL RDW (11.5-14.5) % Plt Count (150-400) 10^3/uL MPV (7.4-10.4) fL Immature Gran % (Auto) (0.0-5.0) % Neut % (Auto) (50.0-70.0) % Lymph % (Auto) (20.0-40.0) % [place] % (Auto) (2.0-8.0) % Eos % (Auto) (1.0-3.0) % Baso % (Auto) (0.0-1.0) % Neut # (Auto) (2.50-7.00) 10^3/uL Lymph # (Auto) (1.00-4.00) 10^3/uL [place] # (Auto) (0.10-0.80) 10^3/uL Eos # (Auto) (0.10-0.30) 10^3/uL Baso # (Auto) (0.00-0.10) 10^3/uL Immature Gran # (Auto) (0.00-0.50) 10^3/uL Sodium (136-145) mmol/L Potassium (3.5-5.1) mmol/L Chloride (98-107) mmol/L Carbon Dioxide (21.0-32.0) mmol/L Anion Gap (5-15) mmol/L BUN (7-18) mg/dL Creatinine (0.51-1.17) mg/dL Est Cr Clr Drug Dosing mL/min Estimated GFR (MDRD) mL/min Glucose (70-140) mg/dL Calcium (8.7-10.3) mg/dL Total Bilirubin (0.2-1.0) mg/dL AST (15-37) U/L ALT (14-63) U/L Alkaline Phosphatase (46-116) U/L Creatine Kinase (26-276) U/L CK-MB (CK-2) (0.00-3.60) ng/mL Troponin I < 0.017 < 0.017 (0.000-0.056) ng/mL Total Protein (6.4-8.2) g/dL Albumin (3.40-5.00) g/dL Specimen Type Urine Color (YELLOW) Urine Appearance (CLEAR) Urine pH (5.0-9.0) Ur Specific [place] (1.005-1.030) Urine Protein (NEGATIVE) mg/dL Urine Glucose (UA) (NEGATIVE) mg/dL Urine Ketones (NEGATIVE) mg/dL Urine Occult Blood (NEGATIVE) Urine Nitrite (NEGATIVE) Urine Bilirubin (NEGATIVE) Urine Urobilinogen (0.2-1.0) E.U./dL Ur Leukocyte Esterase (NEGATIVE) Urine RBC (0-5) /HPF Urine WBC (0-5) /HPF Ur Epithelial Cells /LPF Urine Bacteria (NONE TO FEW) /HPF SARS CoV-2 RNA Rapid EDIS Negative (NEGATIVE) 06/23/20 Range/Units 07:50 WBC (5.00-10.00) 10^3/uL RBC (3.80-5.50) 10^6/uL Hgb (12.0-16.0) g/dL Hct (37.0-47.0) % MCV (82.0-92.0) fL MCH (27.0-31.0) pg MCHC (32.0-36.0) g/dL RDW (11.5-14.5) % Plt Count (150-400) 10^3/uL MPV (7.4-10.4) fL Immature Gran % (Auto) (0.0-5.0) % Neut % (Auto) (50.0-70.0) % Lymph % (Auto) (20.0-40.0) % [place] % (Auto) (2.0-8.0) % Eos % (Auto) (1.0-3.0) % Baso % (Auto) (0.0-1.0) % Neut # (Auto) (2.50-7.00) 10^3/uL Lymph # (Auto) (1.00-4.00) 10^3/uL [place] # (Auto) (0.10-0.80) 10^3/uL Eos # (Auto) (0.10-0.30) 10^3/uL Baso # (Auto) (0.00-0.10) 10^3/uL Immature Gran # (Auto) (0.00-0.50) 10^3/uL Sodium (136-145) mmol/L Potassium (3.5-5.1) mmol/L Chloride (98-107) mmol/L Carbon Dioxide (21.0-32.0) mmol/L Anion Gap (5-15) mmol/L BUN (7-18) mg/dL Creatinine (0.51-1.17) mg/dL Est Cr Clr Drug Dosing mL/min Estimated GFR (MDRD) mL/min Glucose (70-140) mg/dL Calcium (8.7-10.3) mg/dL Total Bilirubin (0.2-1.0) mg/dL AST (15-37) U/L ALT (14-63) U/L Alkaline Phosphatase (46-116) U/L Creatine Kinase (26-276) U/L CK-MB (CK-2) (0.00-3.60) ng/mL Troponin I < 0.017 (0.000-0.056) ng/mL Total Protein (6.4-8.2) g/dL Albumin (3.40-5.00) g/dL Specimen Type Urine Color (YELLOW) Urine Appearance (CLEAR) Urine pH (5.0-9.0) Ur Specific [place] (1.005-1.030) Urine Protein (NEGATIVE) mg/dL Urine Glucose (UA) (NEGATIVE) mg/dL Urine Ketones (NEGATIVE) mg/dL Urine Occult Blood (NEGATIVE) Urine Nitrite (NEGATIVE) Urine Bilirubin (NEGATIVE) Urine Urobilinogen (0.2-1.0) E.U./dL Ur Leukocyte Esterase (NEGATIVE) Urine RBC (0-5) /HPF Urine WBC (0-5) /HPF Ur Epithelial Cells /LPF Urine Bacteria (NONE TO FEW) /HPF SARS CoV-2 RNA Rapid EDIS (NEGATIVE) - Exam General: Reports: Alert, Oriented, Cooperative, No Acute Distress HEENT: Reports: Pupils Equal, Mucous Membr. Moist/[place] Neck: Reports: Supple. Denies: Carotid Bruit Lungs: Reports: Clear to Auscultation, Normal Respiratory Effort Cardiovascular: Reports: Regular Rate, Regular Rhythm GI/Abdominal Exam: Soft (Female) Exam: Deferred Extremities: No Pedal Edema Skin: Reports: Other (Skin tear dorsal hand 1/2 centimeter) Wound/Incisions: Reports: Drainage (mild capillary ooze only). Denies: Erythema Neurological: Reports: No New Focal Deficit, Normal Gait, Normal Speech, Normal Tone Psy/Mental Status: Reports: Alert, Normal Affect, Normal Mood
[2020-06-23 10:44] VITALS: BP 142/79
[2020-06-23 11:33] VITALS: PULSE 62
[2020-06-23] MEDS ORDERED: amLODIPine 5 MG Tab PO SCH (16:30)
--- NOTE | 2020-06-24 09:21 | PCM.HP.2 ---
H&P History of Present Illness - General Date of Service: 06/23/20 Admit Problem/Dx: Admission Diagnosis/Problem Admission Diagnosis/Problem Near syncope Source of Information: Patient - Related Data Allergies/Adverse Reactions: Allergies Allergy/AdvReac Type Severity Reaction Status Date / Time povidone-iodine Allergy Unknown Cannot Verified 06/22/20 15:11 [From Betadine] Remember benzalkonium chloride Allergy Cannot Verified 06/22/20 15:11 [From Zephiran] Remember diazepam [From Valium] Allergy Hallucinati Verified 06/22/20 15:11 ons gabapentin [From Neurontin] Allergy Other Verified 06/22/20 15:11 Iodinated Contrast Media Allergy Rash Verified 06/22/20 15:11 ketorolac [From Toradol] Allergy Other Verified 06/22/20 15:11 morphine Allergy Nausea Verified 06/22/20 15:11 pineapple Allergy Headache Verified 06/22/20 15:11 soap [From Betadine] Allergy Rash Verified 06/22/20 15:11 soap Allergy Rash Verified 06/22/20 15:11 [id number] Reductase Allergy Other Verified 06/22/20 15:11 Inhibitor Sulfa (Sulfonamide Allergy Hives Verified 06/22/20 15:11 Antibiotics) sulfamethoxazole Allergy Hives Verified 06/22/20 15:11 [From Bactrim] trimethoprim [From Bactrim] Allergy Hives Verified 06/22/20 15:11 seasonal allergies Allergy Other Uncoded 06/22/20 15:11 tape Allergy Rash Uncoded 06/22/20 15:11 Home Medications: Home Meds Metoprolol Succinate [Toprol XL] 50 mg PO DAILY 03/18/13 [History] Isosorbide Mononitrate [Isosorbide Mononitrate ER] 45 mg PO DAILY 09/19/17 [History] amLODIPine Besylate [Amlodipine Besylate] 7.5 mg PO DAILY 09/19/17 [History] carBAMazepine [Carbamazepine ER] 200 mg PO QID 09/19/17 [History] Acyclovir [Zovirax 5% Oint] 1 applic TOP TID PRN 04/02/19 [History] Acetaminophen [Tylenol] 650 mg PO Q4H PRN tablet 04/07/19 [Rx] Nitroglycerin [Nitrostat] 0.4 mg SL ASDIRECTED PRN #0 tab 04/07/19 [Rx] Aspirin 325 mg PO DAILY 06/22/20 [History] Ciclopirox [Penlac 8% Nail Lacquer] 1 applic TP BID PRN 06/22/20 [History] Sertraline [Zoloft] 25 mg PO DAILY 06/22/20 [History] Omeprazole 20 mg PO DAILY #90 capsule. 06/23/20 [Rx] Past Medical History HEENT History: Reports: Allergic Rhinitis, Cataract, Impaired Vision Cardiovascular History: Reports: High Cholesterol, Hypertension, Stents Respiratory History: Reports: Pneumothorax Other Respiratory History: collapsed lung in 1978 and had surgery Gastrointestinal History: Reports: GERD, Hemorrhoids, Other (See Below) Other Gastrointestinal History: heartburn Genitourinary History: Reports: Chronic Renal Insuffiency, Renal Calculus, Other (See Below) Other Genitourinary History: right renal cancer kidney removed [employer] History: Reports: , Other (See Below) Other OB/BYN History: G 5. P-5. one child was born and within a few hours with a lung problem. hysterectomy performed because the Dr thought that there was a problem with the ovaries. Musculoskeletal History: Reports: Arthritis, Other (See Below) Other Musculoskeletal History: myoibrositis Neurological History: Reports: CVA, Migraines, Other (See Below) Other Neuro History: trigeminal neuralgia Psychiatric History: Reports: Anxiety, Depression Hematologic History: Reports: Anemia, B12 Deficiency, Blood Transfusion(s), Iron Deficiency Oncologic (Cancer) History: Reports: Renal Dermatologic History: Reports: Eczema Other Dermatologic History: dry - Infectious Disease History Infectious Disease History: Reports: Chicken Pox, Measles, Mumps, Shingles - Past Surgical History Head Surgeries/Procedures: Reports: None HEENT Surgical History: Reports: Cataract Surgery Cardiovascular Surgical History: Reports: Coronary Artery Stent, Other (See Below) Other Cardiovascular Surgeries/Procedures: Thinks that she had a cardiac catheterization. Respiratory Surgical History: Reports: Thoracotomy GI Surgical History: Reports: Appendectomy, Colonoscopy, Hernia, Inguinal Other GI Surgeries/Procedures: hemmorrhiods Female Surgical History: Reports: Hysterectomy, Nephrectomy, Oophorectomy, Other (See Below) Other Female Surgeries/Procedures: right nephrectomy Musculoskeletal Surgical History: Reports: Knee Replacement Other Musculoskeletal Surgeries/Procedures:: left knee surgery 2011 Social & Family History - Family History Family Medical History: No Pertinent Family History Cardiac: Reports: Hypertension : Reports: None Psychiatric: Reports: Anxiety - Tobacco Use Tobacco Use Status *Q: Never Tobacco User Second Hand Smoke Exposure: No - Caffeine Use Caffeine Use: Reports: Coffee - Recreational Drug Use Recreational Drug Use: No H&P Review of Systems - Review of Systems: Review Of Systems: See Below Exam - Exam Exam: See Below - Vital Signs Vital Signs: Last Vital Signs Temp 98.2 F 06/23/20 10:55 Pulse 62 06/23/20 10:55 Resp 16 06/23/20 10:55 BP 142/79 H 06/23/20 10:43 Pulse Ox 96 06/23/20 10:55 Weight: 111 lb 6.4 oz - Exam General: Alert, Oriented - Patient Data Result Diagrams: 06/22/20 12:10 06/22/20 12:10 Sepsis Event Note - Evaluation Sepsis Screening Result: No Definite Risk Problem List Initiated/Reviewed/Updated: Yes Orders Last 24hrs: Medication Orders Acetaminophen (Acetaminophen 325 Mg Tab) 650 mg PO Q4H PRN PRN Reason: Headache/Pain Last Admin: 06/23/20 02:39 Dose: 650 mg Documented by: Admin: 06/22/20 17:04 Dose: 650 mg Documented by: KRYSTAL Amlodipine Besylate (Amlodipine 5 Mg Tab) 7.5 mg PO DAILY [facility] Last Admin: 06/22/20 17:14 Dose: Not Given Documented by: KRYSTAL Sodium Chloride (Normal Saline) 1,000 mls @ 100 mls/hr IV ASDIRECTED [facility] Last Admin: 06/23/20 01:39 Dose: 100 mls/hr Documented by: Infusion: 06/23/20 01:18 Dose: 100 mls/hr Documented by: Admin: 06/22/20 15:18 Dose: 100 mls/hr Documented by: KRYSTAL Isosorbide Mononitrate (Isosorbide Mononitrate 30 Mg Tab.Er - Ptom) 45 mg PO DAILY [facility] Last Admin: 06/23/20 08:25 Dose: 45 mg Documented by: KRYSTAL Metoprolol Succinate (Metoprolol Succinate 50 Mg Tab.Er - Ptom) 50 mg PO 1800 [facility] Nitroglycerin (Nitroglycerin 0.4 Mg Tab.Sl) 0.4 mg SL ASDIRECTED PRN PRN Reason: Chest Pain Aspirin 325 Mg (Tablet - Ptom) 325 mg PO DAILY [facility] Last Admin: 06/23/20 08:25 Dose: 325 mg Documented by: KRYSTAL Carbamazepine Er 200 (Mg Cap - Ptom) 200 mg PO QID [facility] Last Admin: 06/23/20 08:24 Dose: 200 mg Documented by: Admin: 06/22/20 20:40 Dose: 200 mg Documented by: Admin: 06/22/20 17:05 Dose: 200 mg Documented by: KRYSTAL Sertraline [Zoloft] (25 Mg Tablet - Ptom) 25 mg PO 1800 [facility] Last Admin: 06/22/20 17:07 Dose: 25 mg Documented by: KRYSTAL Assessment/Plan Comment:: Please use this H&P as a combined discharge summary, patient seen and discharged same day Final diagnosis Suspect Vasovagal episode, recurrent History summary Ms García a very pleasant 84-year-old female that was admitted overnight observation status after she became lightheaded, diaphoretic and nauseated immediately after her washing machine door slammed down on her right hand creating a skin tear. Patient symptoms spontaneous resolved by the time EMS arrived. She stated this is the third time this has happened most recently about 2 or 3 weeks ago. In the ED she had no chest pain, denies any recent illness, no fever. 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 Carotid ultrasound, 05/05, no significant stenosis, incidental mass posterior left CCA Echocardiogram, 05/05, 2 diastolic dysfunction, EF 65%, No aortic stenosis. ED work-up Alert and oriented, GCS-15 Troponin initial, normal Vital signs good, electrolytes normal UA, non-concerning for infection, X-ray, no acute process, Hospital course Uneventful with no overnight concerns, her right hand was cleaned and dressed with sterile dressing. All troponins normal, she did have slight hypertension urgency with systolic blood pressure greater than 200 right before her metoprolol. Morning metoprolol was given plus an extra 25 mg. Blood pressure coming down upon discharge. She has no chest pain no shortness of breath no dizziness. She has no complaints today and desires to go home. No evidence of TIA or stroke sequela Medications changes/adjustments upon discharge --Omeprazole, 20 mg p.o. daily, (newly added due to age/ASA use) Disposition/overall plan --Patient will be discharged from [facility] status home self-care with close follow-up with PCP - Review of Systems General: Reports: No Symptoms HEENT: Reports: No Symptoms Pulmonary: Reports: No Symptoms Cardiovascular: Reports: No Symptoms Gastrointestinal: Reports: No Symptoms Genitourinary: Reports: No Symptoms Musculoskeletal: Reports: No Symptoms Skin: Reports: Other (skin tear right hand) Neurological: Denies: Confusion, Dizziness, Numbness, Weakness - Exam General: Reports: Alert, Oriented, Cooperative, No Acute Distress HEENT: Reports: Pupils Equal, Mucous Membr. Moist/[place] Neck: Reports: Supple. Denies: Carotid Bruit Lungs: Reports: Clear to Auscultation, Normal Respiratory Effort Cardiovascular: Reports: Regular Rate, Regular Rhythm GI/Abdominal Exam: Soft (Female) Exam: Deferred Extremities: No Pedal Edema Skin: Reports: Other (Skin tear dorsal hand 1/2 centimeter) Wound/Incisions: Reports: Drainage (mild capillary ooze only). Denies: Erythema Neurological: Reports: No New Focal Deficit, Normal Gait, Normal Speech, Normal Tone Psy/Mental Status: Reports: Alert, Normal Affect, Normal Mood - Mortality Measure Prognosis:: Good
== END 2020-06-23 11:25 | disposition home or self-care (01) ==
LOC: KA.ED 11:51 → KA.MS 12:55
PROVIDERS: ADMIT Physician Assistant Medical; ATTEND Nurse Practitioner Family
DX: R55 Syncope and collapse (principal); S61.411A Laceration without foreign body of right hand, initial encounter; E78.00 Pure hypercholesterolemia, unspecified; I12.9 Hypertensive chronic kidney disease with stage 1 through stage 4 chronic kidney disease, or unspecified chronic kidney disease; N18.9 Chronic kidney disease, unspecified; Z20.822 Contact with and (suspected) exposure to COVID-19; Z88.6 Allergy status to analgesic agent; Z88.2 Allergy status to sulfonamides; Z88.1 Allergy status to other antibiotic agents; Z91.018 Allergy to other foods; Z88.8 Allergy status to other drugs, medicaments and biological substances; Z88.3 Allergy status to other anti-infective agents; Z91.09 Other allergy status, other than to drugs and biological substances; Z86.2 Personal history of diseases of the blood and blood-forming organs and certain disorders involving the immune mechanism; Z85.528 Personal history of other malignant neoplasm of kidney; Z79.899 Other long term (current) drug therapy; Z90.5 Acquired absence of kidney; Z98.890 Other specified postprocedural states
CPT/HCPCS: 36415; 71046; 80053; 81001; 82550; 82553; 84484; 85025; 93005; 99220; 99285-25; A9270-GY; G0378; J7030; U0002

== ENCOUNTER 2022-08-26 11:53 | Emergency (ER) | payer MEDICARE, OTHER ==
[2022-08-26 12:20] LABS: BASOPHILS ABSOLUTE AUTO 0.05 10^3/uL (0.00-0.10); BASOPHILS PERCENT AUTO 0.8 % (0.0-1.0); EOSINOPHILS ABSOLUTE AUTO 0.09 10^3/uL (0.10-0.30); EOSINOPHILS PERCENT AUTO 1.5 % (1.0-3.0); HEMATOCRIT 40.8 % (37.0-47.0); LYMPHOCYTES ABSOLUTE AUTO 1.32 10^3/uL (1.00-4.00); LYMPHOCYTES PERCENT AUTO 22.1 % (20.0-40.0); MEAN CORPUSCULAR HEMOGLOBIN 24.9 pg (27.0-31.0); MEAN CORPUSCULAR HGB CONC 29.4 g/dL (32.0-36.0); MEAN CORPUSCULAR VOLUME 84.6 fL (82.0-92.0); MEAN PLATELET VOLUME 9.6 fL (7.4-10.4); MONOCYTES ABSOLUTE AUTO 0.41 10^3/uL (0.10-0.80); MONOCYTES PERCENT AUTO 6.9 % (2.0-8.0); NEUTROPHILS ABSOLUTE AUTO 4.11 10^3/uL (2.50-7.00); NEUTROPHILS PERCENT AUTO 68.7 % (50.0-70.0); PLATELET COUNT,PLT 322 10^3/uL (150-400); RED BLOOD CELL COUNT 4.82 10^6/uL (3.80-5.50); RED CELL DISTRIBUTION WIDTH 13.8 % (11.5-14.5); WHITE BLOOD CELL COUNT,WBC 5.98 10^3/uL (5.00-10.00)
[2022-08-26] MEDS: Sodium Chloride 0.9% 1,000 ML IV ONE (12:21)
[2022-08-26] MEDS: Metoprolol Tartrate 5 MG/5 ML SDV IVPUSH ONE ×3 (12:22→13:24)
[2022-08-26] MEDS ORDERED: Sodium Chloride 0.9% 1,000 ML IV SCH (12:30)
[2022-08-26 12:37] LABS: ANION GAP 13.2 mmol/L (5-15); CALCIUM 8.6 mg/dL (8.7-10.3); CREATININE 0.97 mg/dL (0.51-1.17); EST CRCL DRUG DOSING (CG) 32.79 mL/min; POTASSIUM,K 4.2 mmol/L (3.5-5.1)
[2022-08-26 13:37] LABS: APPEARANCE,URINE CLEAR (CLEAR); BILIRUBIN,URINE NEGATIVE (NEGATIVE); COLOR,URINE LIGHT YELLOW (YELLOW); GLUCOSE,URINE NEGATIVE (NEGATIVE); KETONES,URINE NEGATIVE (NEGATIVE); LEUKOCYTE ESTERASE,URINE NEGATIVE (NEGATIVE); NITRITE,URINE NEGATIVE (NEGATIVE); OCCULT BLOOD,URINE NEGATIVE (NEGATIVE); PH,URINE 7.5 (5.0-9.0); PROTEIN,URINE NEGATIVE (NEGATIVE); UROBILINOGEN,URINE 0.2 E.U./dL (0.2-1.0)
[2022-08-26] MEDS: Metoprolol Tartrate 5 MG/5 ML SDV ONE (13:37)
[2022-08-26 13:44] VITALS: PULSE 53
[2022-08-26 13:47] LABS: BACTERIA,URINE RARE /HPF (NONE TO FEW); EPITHELIAL CELLS,URINE RARE /LPF; RBC,URINE 0-5 /HPF (0-5); WBC,URINE 0-5 /HPF (0-5)
[2022-08-26 14:57] VITALS: BP 162/74
== END 2022-08-26 16:05 | disposition home or self-care (01) ==
LOC: KA.ED 11:53
DX: R42 Dizziness and giddiness (principal); I16.0 Hypertensive urgency; R51.9 Headache, unspecified; G89.29 Other chronic pain; K21.9 Gastro-esophageal reflux disease without esophagitis; I12.9 Hypertensive chronic kidney disease with stage 1 through stage 4 chronic kidney disease, or unspecified chronic kidney disease; N18.9 Chronic kidney disease, unspecified; Z86.73 Personal history of transient ischemic attack (TIA), and cerebral infarction without residual deficits; Z91.041 Radiographic dye allergy status; Z88.2 Allergy status to sulfonamides; Z91.048 Other nonmedicinal substance allergy status; Z88.5 Allergy status to narcotic agent; Z88.8 Allergy status to other drugs, medicaments and biological substances; Z79.82 Long term (current) use of aspirin; Z79.899 Other long term (current) drug therapy; Z91.199 Patient's noncompliance with other medical treatment and regimen due to unspecified reason
CPT/HCPCS: 80048; 81001; 84484; 85025; 93010; 96361; 96374; 96376; 99284; 99284-25; J3490; J7030

== ENCOUNTER 2022-10-03 14:28 | Emergency (ER) | payer MEDICARE, OTHER ==
[2022-10-03 14:47] LABS: BASOPHILS ABSOLUTE AUTO 0.02 10^3/uL (0.00-0.10); BASOPHILS PERCENT AUTO 0.3 % (0.0-1.0); EOSINOPHILS ABSOLUTE AUTO 0.02 10^3/uL (0.10-0.30); EOSINOPHILS PERCENT AUTO 0.3 % (1.0-3.0); HEMATOCRIT 34.7 % (37.0-47.0); HEMOGLOBIN 10.6 g/dL (12.0-16.0); IMMATURE GRAN ABSOLUTE AUTO 0.01 10^3/uL (0.00-0.50); IMMATURE GRAN PERCENT AUTO 0.1 % (0.0-5.0); LYMPHOCYTES ABSOLUTE AUTO 1.52 10^3/uL (1.00-4.00); LYMPHOCYTES PERCENT AUTO 21.3 % (20.0-40.0); MEAN CORPUSCULAR HEMOGLOBIN 25.4 pg (27.0-31.0); MEAN CORPUSCULAR HGB CONC 30.5 g/dL (32.0-36.0); MEAN CORPUSCULAR VOLUME 83.2 fL (82.0-92.0); MONOCYTES ABSOLUTE AUTO 0.49 10^3/uL (0.10-0.80); MONOCYTES PERCENT AUTO 6.9 % (2.0-8.0); NEUTROPHILS ABSOLUTE AUTO 5.07 10^3/uL (2.50-7.00); NEUTROPHILS PERCENT AUTO 71.1 % (50.0-70.0); PLATELET COUNT,PLT 314 10^3/uL (150-400); RED BLOOD CELL COUNT 4.17 10^6/uL (3.80-5.50); RED CELL DISTRIBUTION WIDTH 16.6 % (11.5-14.5); WHITE BLOOD CELL COUNT,WBC 7.13 10^3/uL (5.00-10.00)
[2022-10-03 14:51] VITALS: BP 158/66; PULSE 88
[2022-10-03 14:58] LABS: ALBUMIN 3.45 g/dL (3.40-5.00); ANION GAP 15.9 mmol/L (5-15); BILIRUBIN TOTAL 0.5 mg/dL (0.2-1.0); CALCIUM 9.6 mg/dL (8.7-10.3); CARBON DIOXIDE,CO2 24.3 mmol/L (21.0-32.0); CREATININE 1.46 mg/dL (0.51-1.17); EST CRCL DRUG DOSING (CG) 20.6 mL/min; POTASSIUM,K 4.2 mmol/L (3.5-5.1); PROTEIN TOTAL,TP 7.5 g/dL (6.4-8.2)
[2022-10-03] MEDS: Sodium Chloride 0.9% 500 ML IV SCH (15:20)
[2022-10-03 15:46] LABS: APPEARANCE,URINE CLEAR (CLEAR); BILIRUBIN,URINE NEGATIVE (NEGATIVE); COLOR,URINE YELLOW (YELLOW); GLUCOSE,URINE NEGATIVE (NEGATIVE); KETONES,URINE TRACE mg/dL (NEGATIVE); LEUKOCYTE ESTERASE,URINE TRACE (NEGATIVE); NITRITE,URINE NEGATIVE (NEGATIVE); OCCULT BLOOD,URINE NEGATIVE (NEGATIVE); PROTEIN,URINE 100 mg/dL (NEGATIVE); UROBILINOGEN,URINE 0.2 E.U./dL (0.2-1.0)
[2022-10-03 15:55] LABS: BACTERIA,URINE RARE /HPF (NONE TO FEW); EPITHELIAL CELLS,URINE FEW /LPF; RBC,URINE 0-5 /HPF (0-5)
== END 2022-10-03 16:50 | disposition home or self-care (01) ==
LOC: KA.ED 14:28
DX: I95.9 Hypotension, unspecified (principal); E86.0 Dehydration; K21.9 Gastro-esophageal reflux disease without esophagitis; I12.9 Hypertensive chronic kidney disease with stage 1 through stage 4 chronic kidney disease, or unspecified chronic kidney disease; N18.9 Chronic kidney disease, unspecified; Z79.82 Long term (current) use of aspirin; Z79.899 Other long term (current) drug therapy; Z95.5 Presence of coronary angioplasty implant and graft; Z88.2 Allergy status to sulfonamides; Z88.1 Allergy status to other antibiotic agents; Z88.5 Allergy status to narcotic agent; Z88.6 Allergy status to analgesic agent; Z91.048 Other nonmedicinal substance allergy status; Z91.018 Allergy to other foods; Z91.041 Radiographic dye allergy status; Z88.8 Allergy status to other drugs, medicaments and biological substances
CPT/HCPCS: 80053; 81001; 85025; 87086; 93010; 96360; 99284; 99284-25; J7040

== ENCOUNTER 2023-05-01 09:26 | Emergency (ER) | payer MEDICARE, OTHER ==
[2023-05-01 10:09] LABS: BASOPHILS ABSOLUTE AUTO 0.03 10^3/uL (0.00-0.10); BASOPHILS PERCENT AUTO 0.5 % (0.0-1.0); EOSINOPHILS ABSOLUTE AUTO 0.16 10^3/uL (0.10-0.30); EOSINOPHILS PERCENT AUTO 2.5 % (1.0-3.0); HEMOGLOBIN 12.3 g/dL (12.0-16.0); IMMATURE GRAN ABSOLUTE AUTO 0.02 10^3/uL (0.00-0.50); IMMATURE GRAN PERCENT AUTO 0.3 % (0.0-5.0); LYMPHOCYTES ABSOLUTE AUTO 1.73 10^3/uL (1.00-4.00); LYMPHOCYTES PERCENT AUTO 26.9 % (20.0-40.0); MEAN CORPUSCULAR HEMOGLOBIN 27.8 pg (27.0-31.0); MEAN CORPUSCULAR HGB CONC 31.5 g/dL (32.0-36.0); MEAN CORPUSCULAR VOLUME 88.2 fL (82.0-92.0); MEAN PLATELET VOLUME 10.2 fL (7.4-10.4); MONOCYTES ABSOLUTE AUTO 0.46 10^3/uL (0.10-0.80); MONOCYTES PERCENT AUTO 7.2 % (2.0-8.0); NEUTROPHILS ABSOLUTE AUTO 4.03 10^3/uL (2.50-7.00); NEUTROPHILS PERCENT AUTO 62.6 % (50.0-70.0); PLATELET COUNT,PLT 271 10^3/uL (150-400); RED BLOOD CELL COUNT 4.42 10^6/uL (3.80-5.50); RED CELL DISTRIBUTION WIDTH 15.6 % (11.5-14.5); WHITE BLOOD CELL COUNT,WBC 6.43 10^3/uL (5.00-10.00)
[2023-05-01] MEDS ORDERED: LORazepam 2 MG/ML SDV IVPUSH ONE (10:14)
[2023-05-01 10:20] LABS: ALANINE AMINOTRANSFERASE,ALT 21 U/L (14-63); ALKALINE PHOSPHATASE 99 U/L (46-116); ANION GAP 15.8 mmol/L (5-15); ASPARTATE AMNIOTRANSFERASE,AST 27 U/L (15-37); BILIRUBIN TOTAL 0.4 mg/dL (0.2-1.0); BLOOD UREA NITROGEN,BUN 17 mg/dL (7-18); CALCIUM 8.9 mg/dL (8.7-10.3); CHLORIDE,CL 100 mmol/L (98-107); CREATININE 0.89 mg/dL (0.51-1.17); ESTIMATED GFR 63 mL/min (>=60); GLUCOSE RANDOM 111 mg/dL (70-140); POTASSIUM,K 3.8 mmol/L (3.5-5.1); PROTEIN TOTAL,TP 7.6 g/dL (6.4-8.2); SODIUM,NA 138 mmol/L (136-145)
[2023-05-01] MEDS: Sodium Chloride 0.9% 10 ML Syringe FLUSH PRN ×2 (10:26→10:47)
[2023-05-01 10:29] LABS: PTT,PARTIAL THROMBOPLSTIN TIME 26.9 SEC (22.8-31.4)
[2023-05-01] MEDS ORDERED: Enalaprilat 1.25 MG/ML SDV IVPUSH ONE (10:39)
[2023-05-01 11:10] VITALS: BP 218/101; PULSE 76
== END 2023-05-01 11:25 | disposition home or self-care (01) ==
LOC: KA.ED 09:26
DX: G50.0 Trigeminal neuralgia (principal); I12.9 Hypertensive chronic kidney disease with stage 1 through stage 4 chronic kidney disease, or unspecified chronic kidney disease; N18.9 Chronic kidney disease, unspecified; E78.00 Pure hypercholesterolemia, unspecified; K21.9 Gastro-esophageal reflux disease without esophagitis; Z86.73 Personal history of transient ischemic attack (TIA), and cerebral infarction without residual deficits; Z95.5 Presence of coronary angioplasty implant and graft; Z90.49 Acquired absence of other specified parts of digestive tract; Z90.710 Acquired absence of both cervix and uterus; Z79.82 Long term (current) use of aspirin; Z79.899 Other long term (current) drug therapy; Z91.048 Other nonmedicinal substance allergy status; Z91.041 Radiographic dye allergy status; Z88.8 Allergy status to other drugs, medicaments and biological substances; Z88.2 Allergy status to sulfonamides; Z88.5 Allergy status to narcotic agent; Z91.018 Allergy to other foods; Z88.0 Allergy status to penicillin; Z88.6 Allergy status to analgesic agent
CPT/HCPCS: 71045; 80053; 84484; 85025; 85610; 85730; 93005; 93010; 96374; 96375; 99284; 99284-25; J2060; J3490

== ENCOUNTER 2023-05-08 12:05 | Inpatient (IN) | payer MEDICARE, OTHER ==
[2023-05-08] MEDS ORDERED: Polyethylene Glycol 3350 Powder 17 GM Packet PO PRN (12:41)
[2023-05-08] MEDS ORDERED: Albuterol 0.083% 2.5 MG/3 ML Neb Soln NEB PRN (12:41)
[2023-05-08] MEDS ORDERED: Morphine 2 MG/ML SYRINGE IVPUSH PRN (12:41)
[2023-05-08] MEDS ORDERED: Docusate Sodium 100 MG Cap PO PRN (12:41)
[2023-05-08] MEDS ORDERED: traMADol 50 MG Tab PO PRN (12:41)
[2023-05-08] MEDS ORDERED: Ondansetron 4 MG/2 ML SDV IV PRN (12:41)
[2023-05-08] MEDS ORDERED: Mupirocin Oint 22 GM Tube TOP PRN (12:41)
[2023-05-08] MEDS ORDERED: Naloxone 0.4 MG/ML SDV IVPUSH PRN (12:41)
[2023-05-08] MEDS ORDERED: PEG 400/Hypromellose/Glycerin 15 ML Bottle EYEBOTH PRN (14:24)
[2023-05-08] MEDS: carBAMazepine 200 MG TAB.ER PO SCH ×2 (14:40→20:31)
[2023-05-08] MEDS ORDERED: Diclofenac Sodium 1% Gel 100 GM Tube TOP PRN (15:54)
[2023-05-08] MEDS: Acetaminophen 325 MG Tab PO PRN (19:23)
[2023-05-08] MEDS: Sertraline 50 MG Tab PO SCH (20:31)
[2023-05-08] MEDS: Acetaminophen/HYDROcodone 325-10 MG Tab PO PRN (23:17)
[2023-05-09] MEDS ORDERED: hydrALAZINE 10 MG Tab PO PRN (01:35)
[2023-05-09] MEDS: Acetaminophen/HYDROcodone 325-10 MG Tab PO PRN ×2 (04:53→12:03)
[2023-05-09] MEDS: Pantoprazole 40 MG Tab.CR PO SCH (07:36)
[2023-05-09] MEDS: Aspirin 81 MG Tab.Chew PO SCH (07:37)
[2023-05-09] MEDS: carBAMazepine 200 MG TAB.ER PO SCH ×3 (08:10→20:18)
[2023-05-09] MEDS: cloNIDine 0.1 MG Tab PO PRN (08:10)
[2023-05-09] MEDS: Isosorbide Mononitrate 30 MG Tab.ER PO SCH (08:10)
[2023-05-09] MEDS: Losartan 50 MG Tab PO SCH (08:11)
[2023-05-09] MEDS: Ferrous Sulfate 325 MG Tab PO SCH (08:11)
[2023-05-09] MEDS: Enoxaparin 30 MG/0.3 ML Syringe SUBCUT SCH (08:13)
[2023-05-09] MEDS: Polyethylene Glycol 3350 Powder 17 GM Packet PO SCH (08:48)
[2023-05-09] MEDS ORDERED: Metoprolol Tartrate 25 MG Tab PO SCH (09:00)
[2023-05-09] MEDS ORDERED: Losartan 50 MG Tab PO SCH (09:00)
[2023-05-09] MEDS: ALPRAZolam 0.25 MG Tab PO PRN ×2 (09:11→20:18)
[2023-05-09] MEDS: Ezetimibe 10 MG Tab PO SCH (12:09)
[2023-05-09] MEDS ORDERED: Acetaminophen/oxyCODONE 325-5 MG Tab PO PRN (13:15)
[2023-05-09] MEDS: [UNRECOGNIZED DRUG - REMARK] PO SCH ×3 (13:41→20:21)
[2023-05-09] MEDS: Acetaminophen/oxyCODONE 325-5 MG Tab PO PRN ×2 (14:05→18:22)
[2023-05-09] MEDS: Sertraline 50 MG Tab PO SCH (20:19)
[2023-05-09] MEDS: Metoprolol Tartrate 25 MG Tab PO SCH (20:19)
[2023-05-10] MEDS: Acetaminophen/oxyCODONE 325-5 MG Tab PO PRN ×4 (04:00→17:53)
[2023-05-10] MEDS: cloNIDine 0.1 MG Tab PO PRN (05:23)
[2023-05-10] MEDS: ALPRAZolam 0.25 MG Tab PO PRN ×2 (05:25→21:02)
[2023-05-10] MEDS: [UNRECOGNIZED DRUG - REMARK] PO SCH ×4 (05:42→20:58)
[2023-05-10] MEDS: Pantoprazole 40 MG Tab.CR PO SCH ×2 (05:52→06:59)
[2023-05-10] MEDS: Isosorbide Mononitrate 30 MG Tab.ER PO SCH (08:18)
[2023-05-10] MEDS: Aspirin 81 MG Tab.Chew PO SCH (08:18)
[2023-05-10] MEDS: Losartan 50 MG Tab PO SCH (08:19)
[2023-05-10] MEDS: Polyethylene Glycol 3350 Powder 17 GM Packet PO SCH (08:19)
[2023-05-10] MEDS: carBAMazepine 200 MG TAB.ER PO SCH ×3 (08:19→20:55)
[2023-05-10] MEDS: Enoxaparin 30 MG/0.3 ML Syringe SUBCUT SCH (08:19)
[2023-05-10] MEDS: Ezetimibe 10 MG Tab PO SCH (13:11)
[2023-05-10] MEDS: Metoprolol Tartrate 25 MG Tab PO SCH (20:56)
[2023-05-10] MEDS: Sertraline 50 MG Tab PO SCH (20:57)
[2023-05-11] MEDS: Acetaminophen/oxyCODONE 325-5 MG Tab PO PRN ×3 (04:16→15:09)
[2023-05-11] MEDS: [UNRECOGNIZED DRUG - REMARK] PO SCH ×4 (07:36→21:00)
[2023-05-11] MEDS: Pantoprazole 40 MG Tab.CR PO SCH (07:36)
[2023-05-11] MEDS: Isosorbide Mononitrate 30 MG Tab.ER PO SCH (08:48)
[2023-05-11] MEDS: Aspirin 81 MG Tab.Chew PO SCH (08:48)
[2023-05-11] MEDS: carBAMazepine 200 MG TAB.ER PO SCH ×3 (08:48→21:00)
[2023-05-11] MEDS: Losartan 50 MG Tab PO SCH (08:48)
[2023-05-11] MEDS: Ferrous Sulfate 325 MG Tab PO SCH (08:48)
[2023-05-11] MEDS: Enoxaparin 30 MG/0.3 ML Syringe SUBCUT SCH (08:48)
[2023-05-11] MEDS: Polyethylene Glycol 3350 Powder 17 GM Packet PO SCH (08:49)
[2023-05-11] MEDS: Ezetimibe 10 MG Tab PO SCH (12:36)
[2023-05-11] MEDS ORDERED: carBAMazepine 200 MG TAB.ER PO SCH (13:00)
[2023-05-11] MEDS: ALPRAZolam 0.25 MG Tab PO PRN (21:00)
[2023-05-11] MEDS: Sertraline 50 MG Tab PO SCH (21:00)
[2023-05-11] MEDS: Metoprolol Tartrate 25 MG Tab PO SCH (21:22)
[2023-05-12] MEDS: Acetaminophen/oxyCODONE 325-5 MG Tab PO PRN ×3 (00:43→16:54)
[2023-05-12] MEDS: carBAMazepine 200 MG TAB.ER PO SCH ×5 (01:10→20:47)
[2023-05-12] MEDS: Pantoprazole 40 MG Tab.CR PO SCH (07:06)
[2023-05-12] MEDS: [UNRECOGNIZED DRUG - REMARK] PO SCH ×3 (07:07→20:48)
[2023-05-12] MEDS: Aspirin 81 MG Tab.Chew PO SCH (08:27)
[2023-05-12] MEDS: Losartan 50 MG Tab PO SCH (08:28)
[2023-05-12] MEDS: Enoxaparin 30 MG/0.3 ML Syringe SUBCUT SCH (08:28)
[2023-05-12] MEDS: Isosorbide Mononitrate 30 MG Tab.ER PO SCH (08:28)
[2023-05-12] MEDS: Polyethylene Glycol 3350 Powder 17 GM Packet PO SCH (08:29)
[2023-05-12] MEDS: Ezetimibe 10 MG Tab PO SCH (12:48)
[2023-05-12] MEDS: Metoprolol Tartrate 25 MG Tab PO SCH (20:47)
[2023-05-12] MEDS: Sertraline 50 MG Tab PO SCH (20:47)
[2023-05-12] MEDS: ALPRAZolam 0.25 MG Tab PO PRN (20:48)
[2023-05-13] MEDS: Acetaminophen/oxyCODONE 325-5 MG Tab PO PRN ×3 (00:11→13:11)
[2023-05-13] MEDS: carBAMazepine 200 MG TAB.ER PO SCH ×4 (05:41→20:59)
[2023-05-13] MEDS: Pantoprazole 40 MG Tab.CR PO SCH ×2 (05:43→06:30)
[2023-05-13] MEDS: [UNRECOGNIZED DRUG - REMARK] PO SCH ×2 (07:39→21:00)
[2023-05-13] MEDS: Aspirin 81 MG Tab.Chew PO SCH (09:10)
[2023-05-13] MEDS: Polyethylene Glycol 3350 Powder 17 GM Packet PO SCH (09:13)
[2023-05-13] MEDS: Enoxaparin 30 MG/0.3 ML Syringe SUBCUT SCH (09:13)
[2023-05-13] MEDS: Isosorbide Mononitrate 30 MG Tab.ER PO SCH (09:39)
[2023-05-13] MEDS: Losartan 50 MG Tab PO SCH (09:39)
[2023-05-13] MEDS: Ezetimibe 10 MG Tab PO SCH (13:11)
[2023-05-13] MEDS: Acetaminophen 325 MG Tab PO PRN (18:28)
[2023-05-13] MEDS: ALPRAZolam 0.25 MG Tab PO PRN (20:59)
[2023-05-13] MEDS: Metoprolol Tartrate 25 MG Tab PO SCH (20:59)
[2023-05-13] MEDS: Sertraline 50 MG Tab PO SCH (21:00)
[2023-05-14] MEDS: carBAMazepine 200 MG TAB.ER PO SCH ×4 (02:27→20:25)
[2023-05-14] MEDS: [UNRECOGNIZED DRUG - REMARK] PO SCH (06:31)
[2023-05-14] MEDS: Acetaminophen 325 MG Tab PO PRN ×2 (06:32→17:31)
[2023-05-14] MEDS: Pantoprazole 40 MG Tab.CR PO SCH (06:32)
[2023-05-14] MEDS: Acetaminophen/oxyCODONE 325-5 MG Tab PO PRN (07:46)
[2023-05-14] MEDS: Aspirin 81 MG Tab.Chew PO SCH (07:46)
[2023-05-14] MEDS: Isosorbide Mononitrate 30 MG Tab.ER PO SCH (08:25)
[2023-05-14] MEDS: Polyethylene Glycol 3350 Powder 17 GM Packet PO SCH (08:25)
[2023-05-14] MEDS: Enoxaparin 30 MG/0.3 ML Syringe SUBCUT SCH (08:25)
[2023-05-14] MEDS: Ferrous Sulfate 325 MG Tab PO SCH (08:26)
[2023-05-14] MEDS: Losartan 50 MG Tab PO SCH (08:26)
[2023-05-14] MEDS: Ezetimibe 10 MG Tab PO SCH (11:40)
[2023-05-14 13:35] LABS: CORONAVIRUS COVID-19 RAPID NEGATIVE (NEGATIVE)
[2023-05-14] MEDS: Metoprolol Tartrate 25 MG Tab PO SCH (20:25)
[2023-05-14] MEDS: Sertraline 50 MG Tab PO SCH (20:32)
[2023-05-14] MEDS: ALPRAZolam 0.25 MG Tab PO PRN (20:32)
[2023-05-15] MEDS: carBAMazepine 200 MG TAB.ER PO SCH ×2 (06:20→08:33)
[2023-05-15] MEDS: Pantoprazole 40 MG Tab.CR PO SCH (07:30)
[2023-05-15] MEDS: Isosorbide Mononitrate 30 MG Tab.ER PO SCH (08:32)
[2023-05-15] MEDS: Losartan 50 MG Tab PO SCH (08:33)
[2023-05-15] MEDS: Aspirin 81 MG Tab.Chew PO SCH (08:33)
[2023-05-15] MEDS: Enoxaparin 30 MG/0.3 ML Syringe SUBCUT SCH (08:33)
[2023-05-15] MEDS: Polyethylene Glycol 3350 Powder 17 GM Packet PO SCH (08:34)
[2023-05-15 08:38] VITALS: BP 148/70
[2023-05-15 08:57] VITALS: PULSE 66
[2023-05-15] MEDS: Acetaminophen 325 MG Tab PO PRN (10:57)
[2023-05-15] MEDS: Ezetimibe 10 MG Tab PO SCH (11:41)
== END 2023-05-15 12:30 | DRG 947 ==
LOC: KA.MS 12:05
PROVIDERS: ADMIT Internal Medicine; ATTEND Internal Medicine
DX: R53.81 Other malaise (principal); I21.9 Acute myocardial infarction, unspecified; I21.A1 Myocardial infarction type 2; I10 Essential (primary) hypertension; G50.0 Trigeminal neuralgia; Z66 Do not resuscitate; Z79.82 Long term (current) use of aspirin; Z79.899 Other long term (current) drug therapy; Z11.52 Encounter for screening for COVID-19
CPT/HCPCS: 71045; 97110-GO; 97530-GO; 97535-GO; 99307-GT; 99316-GT; A9270-GY; J1650; Q3014; U0002

== ENCOUNTER 2023-08-28 09:22 | Emergency (ER) | payer MEDICARE, OTHER ==
[2023-08-28 09:53] LABS: APPEARANCE,URINE CLEAR (CLEAR); BILIRUBIN,URINE NEGATIVE (NEGATIVE); COLOR,URINE YELLOW (YELLOW); GLUCOSE,URINE NEGATIVE (NEGATIVE); KETONES,URINE NEGATIVE (NEGATIVE); LEUKOCYTE ESTERASE,URINE NEGATIVE (NEGATIVE); NITRITE,URINE NEGATIVE (NEGATIVE); OCCULT BLOOD,URINE TRACE-INTACT (NEGATIVE); PROTEIN,URINE 100 mg/dL (NEGATIVE); UROBILINOGEN,URINE 0.2 E.U./dL (0.2-1.0)
[2023-08-28 10:00] LABS: BASOPHILS ABSOLUTE AUTO 0.03 10^3/uL (0.00-0.10); BASOPHILS PERCENT AUTO 0.5 % (0.0-1.0); EOSINOPHILS ABSOLUTE AUTO 0.11 10^3/uL (0.10-0.30); EOSINOPHILS PERCENT AUTO 1.7 % (1.0-3.0); HEMATOCRIT 36.5 % (37.0-47.0); HEMOGLOBIN 11.6 g/dL (12.0-16.0); IMMATURE GRAN ABSOLUTE AUTO 0.01 10^3/uL (0.00-0.50); IMMATURE GRAN PERCENT AUTO 0.2 % (0.0-5.0); LYMPHOCYTES ABSOLUTE AUTO 1.25 10^3/uL (1.00-4.00); LYMPHOCYTES PERCENT AUTO 19.6 % (20.0-40.0); MEAN CORPUSCULAR HEMOGLOBIN 31.5 pg (27.0-31.0); MEAN CORPUSCULAR HGB CONC 31.8 g/dL (32.0-36.0); MEAN CORPUSCULAR VOLUME 99.2 fL (82.0-92.0); MEAN PLATELET VOLUME 9.8 fL (7.4-10.4); MONOCYTES ABSOLUTE AUTO 0.45 10^3/uL (0.10-0.80); MONOCYTES PERCENT AUTO 7.1 % (2.0-8.0); NEUTROPHILS ABSOLUTE AUTO 4.53 10^3/uL (2.50-7.00); NEUTROPHILS PERCENT AUTO 70.9 % (50.0-70.0); PLATELET COUNT,PLT 197 10^3/uL (150-400); RED BLOOD CELL COUNT 3.68 10^6/uL (3.80-5.50); RED CELL DISTRIBUTION WIDTH 15.7 % (11.5-14.5); WHITE BLOOD CELL COUNT,WBC 6.38 10^3/uL (5.00-10.00)
[2023-08-28 10:03] LABS: BACTERIA,URINE FEW /HPF (NONE TO FEW); EPITHELIAL CELLS,URINE FEW /LPF; RBC,URINE 0-5 /HPF (0-5); WBC,URINE 0-5 /HPF (0-5)
[2023-08-28 10:08] LABS: ALBUMIN 2.92 g/dL (3.40-5.00); ANION GAP 10.9 mmol/L (5-15); BILIRUBIN TOTAL 0.4 mg/dL (0.2-1.0); CALCIUM 8.7 mg/dL (8.7-10.3); CREATININE 1.12 mg/dL (0.51-1.17); EST CRCL DRUG DOSING (CG) 25.09 mL/min; POTASSIUM,K 3.9 mmol/L (3.5-5.1); PROTEIN TOTAL,TP 6.6 g/dL (6.4-8.2)
[2023-08-28 13:25] VITALS: BP 125/80; PULSE 65
== END 2023-08-28 11:00 | disposition home or self-care (01) ==
LOC: KA.ED 09:22
DX: G50.0 Trigeminal neuralgia (principal); M25.512 Pain in left shoulder; M25.511 Pain in right shoulder; R79.89 Other specified abnormal findings of blood chemistry; I12.9 Hypertensive chronic kidney disease with stage 1 through stage 4 chronic kidney disease, or unspecified chronic kidney disease; N18.9 Chronic kidney disease, unspecified; E78.00 Pure hypercholesterolemia, unspecified; K21.9 Gastro-esophageal reflux disease without esophagitis; Z91.041 Radiographic dye allergy status; Z88.8 Allergy status to other drugs, medicaments and biological substances; Z88.5 Allergy status to narcotic agent; Z91.048 Other nonmedicinal substance allergy status; Z88.6 Allergy status to analgesic agent; Z88.2 Allergy status to sulfonamides; Z79.899 Other long term (current) drug therapy; Z79.82 Long term (current) use of aspirin; Z90.710 Acquired absence of both cervix and uterus
CPT/HCPCS: 36415; 80053; 81001; 83880; 84484; 85025; 93005; 99284